=== PATIENT | female | born 1955 | race Caucasian/White ===

== ENCOUNTER 2016-08-26 13:29 | Emergency (ER) | payer BC ==
[~2016-08-26] VITALS: Ht 152.4 cm; Wt 56.1 kg
[~2016-08-26 13:29] MED LIST: ACAR50TA PO; ALBU1AER INH; ALBU6.7H INH; BENI20TA25 PO; FLUT1INH7 INH; SPIRCAP INH
[2016-08-26 13:34] VITALS: BP 145/68; PULSE 70; RESP 18; TEMP 98.3; O2SAT 99
[2016-08-26] MEDS ORDERED: SODIUM CHLOR 0.9% 1000 ML INJ 1,000 ML IV SCH (14:08)
--- NOTE | 2016-08-26 14:12 | PD ---
HPI Chief Complaint: Abdominal Pain Time Seen by Provider: 14:08 Travel History International Travel<30 days: No Contact w/Intl Traveler<30days: No Traveled to known affect area: No History of Present Illness HPI 61-year-old female with history of gastritis, presents to the ER today for nausea, vomiting, and loose stools in the past day after eating ice cream. She states that other people in her household is in the ice cream without significant symptoms. She states that she has had an increased problem with her stomach in the last month. She denies any fevers or any other symptoms. She is having 5 out of 10 epigastric abdominal pains and was sent in by her primary care physician for further evaluation. Modifying Factors: None Associated Signs & Symptoms: Epigastric abdominal pains, nausea and vomiting, loose stools Risk Factors: Gastritis PFSH Past Medical History Hx Anticoagulant Therapy: Yes (BABY ASA) Arthritis: Yes (NECK) Asthma: Yes Blood Disorders: No Anxiety: No Depression: No Cancer: No Cardiovascular Problems: Yes Chemotherapy: No COPD: Yes Diabetes: Yes (TYPE 2) Patient Takes Glucophage: No Diminished Hearing: No Endocrine: No GERD: Yes Genitourinary: No Hypertension: Yes Immune Disorder: No Implanted Vascular Access Dvce: No Musculoskeletal: Yes Neurologic: No Psychiatric: No Reproductive: No Respiratory: Yes (ASTHMA) Radiation Therapy: No ?: Not Past Surgical History Abdominal Surgery: Yes (TUMMY TUCK) Gynecologic Surgery: Yes (HYSTERECTOMY 1996) Hysterectomy: Yes Thoracic Surgery: Yes (BREAST AUGMENTAION) Other Surgery: Yes Social History Alcohol Use: Yes (6 DRINKS PER WEEK) Tobacco Use: No Substance Use: Yes (MARIJUANA ) Allergies-Medications (Allergen,Severity, Reaction): Coded Allergies: Bumble Bee (Verified Allergy, Severe, Hives, 08/26/16) Morphine (Verified Allergy, Severe, Hives, 08/26/16) Penicillin (Verified Allergy, Severe, Shortness of Breath, 08/26/16) Prednisone (Verified Allergy, Severe, EXERBATION OF DIVERTICULIS, 08/26/16) Dilaudid (Verified Allergy, Intermediate, ITCHING, 08/26/16) Protonix (Verified Allergy, Intermediate, Hives, 08/26/16) Codeine (Verified Allergy, Mild, Hallucinations, 08/26/16) Sulfa (Verified Allergy, Mild, Hives, 08/26/16) Reported Meds & Prescriptions Reported Meds & Active Scripts Active Reported Prevacid (Lansoprazole) 30 Mg Capdr 30 Mg PO DAILY Breo Ellipta Inh (Fluticasone/Vilanterol) 100-25 Mcg/Act Inh 1 Puff INH DAILY Use daily at the same time. Voltaren (Diclofenac Sodium) 100 Gm Gel..gram. Ranitidine (Ranitidine HCl) 150 Mg Tab 150 Mg PO DAILY Proair Respiclick Inh (Albuterol Sulfate) 90 Mcg/Act Aerp 1 Puff INH Q4H PRN Multi-Day Vitamins (Multiple Vitamin) 1 Tab Tab Mometasone Topical (Mometasone Furoate) 0.1 % Lotn 1 Applic TOPICAL DAILY Hydrocodone-Acetaminophen 5-325 mg Tab 1 Tab PO Q6H PRN Fiber Choice Chewable Tablet (Inulin/Sorbitol) 1.5 Gm Tab.chew Delestrogen Valerate Inj (Estradiol Valerate) 40 Mg/Ml Inj Benicar (Olmesartan) 20 Mg Tab 20 Mg PO DAILY Aspirin 81 (Aspirin) 81 Mg Tabdr 81 Mg PO DAILY Yamilet-D 12 Hour Allergy (Fexofenadine-Pseudoephedrine ER 12 HR) 60-120 Mg Olivia 1 Tab PO BID Acarbose 25 Mg Tab 25 Mg PO TID Take with first bite of meal. Review of Systems Except as stated in HPI: all other systems reviewed are Neg Physical Exam Narrative GENERAL: Well-developed elderly white female patient currently mild distress but awake and oriented 3. SKIN: Focused skin assessment warm/dry. HEAD: Atraumatic. Normocephalic. EYES: Pupils equal and round. No scleral icterus. No injection or drainage. ENT: No nasal bleeding or discharge. Mucous membranes pink and moist. NECK: Trachea midline. No JVD. CARDIOVASCULAR: Regular rate and rhythm. No murmur appreciated. RESPIRATORY: No accessory muscle use. Clear to auscultation. Breath sounds equal bilaterally. GASTROINTESTINAL: Abdomen soft, epigastric tenderness without guarding or rebound, nondistended. Hepatic and splenic margins not palpable. MUSCULOSKELETAL: No obvious deformities. No clubbing. No cyanosis. No edema. NEUROLOGICAL: Awake and alert. No obvious cranial nerve deficits. Motor grossly within normal limits. Normal speech. PSYCHIATRIC: Appropriate mood and affect; insight and judgment normal. Data Data Last Documented VS Vital Signs Date Time Temp Pulse Resp B/P Pulse Ox O2 Delivery O2 Flow Rate FiO2 08/26/16 14:17 97 Room Air 08/26/16 13:34 98.3 70 18 145/68 Orders Complete Blood Count With Diff (08/26/16 14:08) Comprehensive Metabolic Panel (08/26/16 14:08) Lipase (08/26/16 14:08) Urinalysis - C+S If Indicated (08/26/16 14:08) Ct Abd/Pel W Iv Contrast(Rout) (08/26/16 14:08) Iv Access Insert/Monitor (08/26/16 14:08) Ecg Monitoring (08/26/16 14:08) Oximetry (08/26/16 14:08) Ondansetron Inj (Zofran Inj) (08/26/16 14:15) Sodium Chlor 0.9% 1000 Ml Inj (Ns 1000 M (08/26/16 14:08) Sodium Chloride 0.9% Flush (Ns Flush) (08/26/16 14:15) Electrocardiogram (08/26/16 14:08) Famotidine Inj (Pepcid Inj) (08/26/16 14:15) Al-Mag Hy-Si 40-40-4 Mg/Ml Liq (Mag-Al P (08/26/16 14:15) Lidocaine 2% Viscous (Xylocaine 2% Visco (08/26/16 14:15) Iohexol 350 Inj (Omnipaque 350 Inj) (08/26/16 15:47) Labs Laboratory Tests Test 08/26/16 08/26/16 14:31 16:39 White Blood Count 13.2 TH/MM3 Red Blood Count 4.20 MIL/MM3 Hemoglobin 13.4 GM/DL Hematocrit 39.4 % Mean Corpuscular Volume 93.9 FL Mean Corpuscular Hemoglobin 31.9 PG Mean Corpuscular Hemoglobin 34.0 % Concent Red Cell Distribution Width 12.9 % Platelet Count 391 TH/MM3 Mean Platelet Volume 8.9 FL Neutrophils (%) (Auto) 57.7 % Lymphocytes (%) (Auto) 23.6 % Monocytes (%) (Auto) 5.9 % Eosinophils (%) (Auto) 10.3 % Basophils (%) (Auto) 2.5 % Neutrophils # (Auto) 7.6 TH/MM3 Lymphocytes # (Auto) 3.1 TH/MM3 Monocytes # (Auto) 0.8 TH/MM3 Eosinophils # (Auto) 1.4 TH/MM3 Basophils # (Auto) 0.3 TH/MM3 CBC Comment DIFF FINAL Differential Comment Sodium Level 141 MEQ/L Potassium Level 4.0 MEQ/L Chloride Level 108 MEQ/L Carbon Dioxide Level 26.8 MEQ/L Anion Gap 6 MEQ/L Blood Urea Nitrogen 12 MG/DL Creatinine 0.85 MG/DL Estimat Glomerular Filtration 68 ML/MIN Rate Random Glucose 99 MG/DL Calcium Level 9.2 MG/DL Total Bilirubin 0.3 MG/DL Aspartate Amino Transf 16 U/L (AST/SGOT) Alanine Aminotransferase 26 U/L (ALT/SGPT) Alkaline Phosphatase 69 U/L Total Protein 7.0 GM/DL Albumin 3.9 GM/DL Lipase 96 U/L Urine Color YELLOW Urine Turbidity HAZY Urine pH 6.5 Urine Specific [place] GREATER THAN 1.035 Urine Protein NEG mg/dL Urine Glucose (UA) NEG mg/dL Urine Ketones NEG mg/dL Urine Occult Blood TRACE Urine Nitrite NEG Urine Bilirubin NEG Urine Leukocyte Esterase NEG Urine Squamous Epithelial > 8 /hpf Cells Urine Bacteria FEW /hpf Microscopic Urinalysis Comment CULT NOT INDICATED MDM Medical Decision Making Medical Screen Exam Complete: Yes Emergency Medical Condition: Yes Medical Record Reviewed: Yes Interpretation(s) EKG shows NSR, no ST elevation or depression, and no arrhythmias. No significant T-wave inversions. Laboratory Tests Test 08/26/16 08/26/16 14:31 16:39 White Blood Count 13.2 TH/MM3 (4.0-11.0) Eosinophils (%) (Auto) 10.3 % (0.0-4.0) Basophils (%) (Auto) 2.5 % (0.0-2.0) Eosinophils # (Auto) 1.4 TH/MM3 (0-0.4) Basophils # (Auto) 0.3 TH/MM3 (0-0.2) Chloride Level 108 MEQ/L (98-107) Estimat Glomerular Filtration 68 ML/MIN (>89) Rate Urine Turbidity HAZY (CLEAR) Urine Specific [place] GREATER THAN 1.035 (1.002-1.035) Urine Occult Blood TRACE (NEG) Urine Squamous Epithelial > 8 /hpf (0-5) Cells Urine Bacteria FEW /hpf (NONE) Last 24 hours Impressions Abdomen/Pelvis CT 08/26/16 [id number] Signed Impressions: Service Date/Time: Friday, August 26, 2016 15:31 - CONCLUSION: Chronic diverticulosis coli otherwise negative. Brent Gibbs MD FACR Differential Diagnosis Epigastric abdominal pain with nausea and vomiting, loose stools gastroenteritis versus gastritis versus gastric ulcer versus pancreatitis versus other acute intra-abdominal processes versus dehydration versus metabolic issues Narrative Course Lab work shows leukocytosis which patient states she always has. It did not show significant dehydration or metabolic issues. CAT scan was otherwise unremarkable for any signs of acute processes. She was given IV fluids and nausea medication with no further significant vomiting episodes in the ER. At this point, patient was reevaluated at 5 PM and appears to be doing well with stable vital signs. My plan would be to release her with follow-up to primary care physician and GI doctor. Return for any worsening in symptoms as necessary. The plan has been discussed with her and she states understanding. Diagnosis Primary Impression: Gastritis and duodenitis Additional Impression: Abdominal pain Med/Other Pt SpecificInfo: Prescription(s) given Scripts Ondansetron Odt (Zofran Odt)4 Mg Tab4 Mg SL Q6HR PRN (Nausea/Vomiting) #7 TAB Ref 0 Prov:Juliana Douglas MD 08/26/16 Disposition: 01 DISCHARGE HOME Condition: Stable Juliana Douglas MD Aug 26, 2016 14:12
[2016-08-26] MEDS ORDERED: LIDOCAINE VISCOUS 2% SOLN 15 ML UDC PO ONE (14:15)
[2016-08-26] MEDS ORDERED: ONDANSETRON HCL 4 MG/2 ML VIAL IVP ONE (14:15)
[2016-08-26] MEDS ORDERED: ALUMINUM/MAGNESIUM/SIMETH 30 ML CUP PO ONE (14:15)
[2016-08-26] MEDS ORDERED: SODIUM CHLORIDE 0.9% FLUSH 10 ML FLUSH IV FLUSH PRN (14:15)
[2016-08-26] MEDS ORDERED: FAMOTIDINE 20 MG/2 ML VIAL IV PUSH ONE (14:15)
[2016-08-26] MEDS ORDERED: HYDR-3516 PO (14:16)
[2016-08-26] MEDS ORDERED: BENI20TA5 PO (14:16)
[2016-08-26] MEDS ORDERED: ALBU1AER5 INH (14:16)
[2016-08-26] MEDS ORDERED: FLUT1INH INH (14:16)
[2016-08-26] MEDS ORDERED: MULTTAB27 (14:16)
[2016-08-26] MEDS ORDERED: ASPI-110 PO (14:16)
[2016-08-26] MEDS ORDERED: PREV30CA11 PO (14:16)
[2016-08-26] MEDS ORDERED: VOLT1GEL4 (14:16)
[2016-08-26] MEDS ORDERED: [UNRECOGNIZED DRUG - CODE] (14:16)
[2016-08-26] MEDS ORDERED: ALLE12TA2 PO (14:16)
[2016-08-26] MEDS ORDERED: ACAR25TA PO (14:16)
[2016-08-26] MEDS ORDERED: [UNRECOGNIZED DRUG - CODE] (14:16)
[2016-08-26] MEDS ORDERED: RANI150T PO (14:16)
[2016-08-26] MEDS ORDERED: MOME0.1S17 TOPICAL (14:16)
[2016-08-26 14:17] VITALS: O2SAT 97
[2016-08-26 14:42] LABS: AUTOMATED NEUTROPHIL # 7.6 TH/MM3 (1.8-7.7); BASOPHIL # 0.3 TH/MM3 (0-0.2); BASOPHIL % 2.5 % (0.0-2.0); EOSINOPHIL # 1.4 TH/MM3 (0-0.4); EOSINOPHIL % 10.3 % (0.0-4.0); HEMATOCRIT 39.4 % (35.0-46.0); HEMO FLAGS DIFF FINAL; LYMPH % 23.6 % (9.0-44.0); LYMPHOCYTE # 3.1 TH/MM3 (1.0-4.8); MEAN CELL VOLUME 93.9 FL (80.0-100.0); MEAN CORPUSCULAR HEMOGLOBIN 31.9 PG (27.0-34.0); MONO % 5.9 % (0.0-8.0); NEUT % 57.7 % (16.0-70.0); PLATELET COUNT 391 TH/MM3 (150-450); RED CELL DISTRIBUTION WIDTH 12.9 % (11.6-17.2); WHITE BLOOD COUNT 13.2 TH/MM3 (4.0-11.0)
[2016-08-26 14:51] LABS: CHLORIDE 108 MEQ/L (98-107); SODIUM (NA) 141 MEQ/L (136-145)
[2016-08-26 14:55] LABS: ANION GAP 6 MEQ/L (5-15); BICARBONATE 26.8 MEQ/L (21.0-32.0); BLOOD UREA NITROGEN 12 MG/DL (7-18)
[2016-08-26 14:58] LABS: ALT (GPT) 26 U/L (10-53); AST (GOT) 16 U/L (15-37); GLOMERULAR FILTRATION RATE 68 ML/MIN (>89)
[2016-08-26 14:59] LABS: TOTAL BILIRUBIN ADULT 0.3 MG/DL (0.2-1.0)
[2016-08-26 15:01] LABS: ALKALINE PHOSPHATASE 69 U/L (45-117)
[2016-08-26] MEDS ORDERED: IOHEXOL 350 MG/ML 10 ML VIAL (for RAD DIAG) IV ONE (15:47)
--- NOTE | 2016-08-26 15:53 | RADHPO ---
EXAM DATE/TIME: 08/26/2016 15:31 [facility] COMPARISON: CT ABDOMEN & PELVIS W CONTRAST, July 08, 2013, 12:12. INDICATIONS : Epigastric pain since yesterday. IV CONTRAST: 95 cc Omnipaque 350 (iohexol) IV ORAL CONTRAST: No oral contrast ingested. RADIATION DOSE: 5.89 CTDIvol (mGy) MEDICAL HISTORY : Hypertension. Chronic obstructive pulmonary disease. Diabetes. SURGICAL HISTORY : Hysterectomy. ENCOUNTER: Initial ACUITY: 2 days PAIN SCALE: 8/10 LOCATION: upper quadrant TECHNIQUE: Volumetric scanning of the abdomen and pelvis was performed. Using automated exposure control and ad justment of the mA and/or kV according to patient size, radiation dose was kept as low as reasonably achievable to obtain optimal diagnostic quality images. FINDINGS: Breast implants are evident. Lung base are clear. Gallbladder small and contracted. The liver, spleen, pancreas and adrenal glands are unremarkable. There is symmetrical renal function without mass. There is no ascites or adenopathy. The cecum and terminal ileum unremarkable. Chronic diverticulosis coli is present sigmoid colon CONCLUSION: Chronic diverticulosis coli otherwise negative. Brent Gibbs MD FACR on August 26, 2016 at 15:49 Board Certified Radiologist. This report was verified electronically.
[2016-08-26 16:44] LABS: BLOOD, URINE TRACE (NEG); GLUCOSE,URINE NEG (NEG); KETONE, URINE NEG (NEG); NITRITE,URINE NEG (NEG); PH, URINE 6.5 (5.0-8.5)
[2016-08-26 16:49] LABS: URINE COLOR YELLOW (YELLW/STRAW)
[2016-08-26 16:51] LABS: BACTERIA, URINE FEW /hpf; COMMENT (UR) CULT NOT INDICATED; CULTURE IF INDICATED CULT NOT INDICATED; SQUAMOUS EPITHELIAL CELL URINE > 8 /hpf (0-5)
[2016-08-26] MEDS ORDERED: ZOFR4TAB3 SL (17:03)
[2016-08-26 17:24] VITALS: BP 112/72; PULSE 64; RESP 18; O2SAT 98
--- NOTE | 2016-08-27 22:01 | EKG ---
Date Performed: 08/26/2016 Time Performed: 14:14:54 PTAGE: 61 years EKG: Sinus bradycardia Low QRS voltages in precordial leads Since previous tracing, no significa nt change noted Borderline ECG PREVIOUS TRACING : 03/21/2015 09.32 DOCTOR: Emanuel Fuentes Interpretating Date/Time 08/27/2016 21:57:48
== END 2016-08-26 17:27 | disposition home or self-care (01) ==
LOC: PHED 13:29
DX: K29.80 Duodenitis without bleeding (principal); K29.70 Gastritis, unspecified, without bleeding; R00.1 Bradycardia, unspecified; R10.13 Epigastric pain; J45.909 Unspecified asthma, uncomplicated; J44.9 Chronic obstructive pulmonary disease, unspecified; E11.9 Type 2 diabetes mellitus without complications; I10 Essential (primary) hypertension; K21.9 Gastro-esophageal reflux disease without esophagitis
CPT/HCPCS: 74177; 80053; 81001; 83690; 85025; 93005; 96361; 96374; 96375; 99285; J2405; J7030; Q9967

== ENCOUNTER 2016-09-02 05:53 | Inpatient (IN) | payer BC ==
[2016-09-02] VITALS (8 sets, daily range): BP systolic 115–213; BP diastolic 49–125; PULSE 54–79; RESP 16–24; TEMP 96.7–98.3; O2SAT 97–100
[~2016-09-02] VITALS: Ht 167.6 cm; Wt 57.8 kg
[~2016-09-02 05:53] MED LIST changes: +ACAR25TA PO; -ACAR50TA PO; -ALBU1AER INH; +ALBU1AER5 INH; -ALBU6.7H INH; +ALLE12TA2 PO; +ASPI-110 PO; -BENI20TA25 PO; +BENI20TA5 PO; +FLUT1INH INH; -FLUT1INH7 INH; +HYDR-3516 PO; +MOME0.1S17 TOPICAL; +MULTTAB27; +PREV30CA11 PO; +RANI150T PO; -SPIRCAP INH; +VOLT1GEL4; +ZOFR4TAB3 SL; +[UNRECOGNIZED DRUG - CODE]; +[UNRECOGNIZED DRUG - CODE]
[2016-09-02] MEDS ORDERED: SODIUM CHLOR 0.9% 1000 ML INJ 1,000 ML IV ONE (06:15)
[2016-09-02] MEDS ORDERED: ONDANSETRON HCL 4 MG/2 ML VIAL IV ONE (06:15)
--- NOTE | 2016-09-02 06:29 | RADRPT ---
EXAM DATE/TIME: 09/02/2016 06:28 [facility] COMPARISON: CHEST PA & LAT, March 21, 2015, 9:59. INDICATIONS : Abdominal pain and vomiting x 2 weeks. MEDICAL HISTORY : Hypertension. Chronic obstructive pulmonary disease. Diabetes. SURGICAL HISTORY : Hysterectomy. ENCOUNTER: Initial ACUITY: 2 weeks PAIN SCORE: 9/10 LOCATION: Bilateral chest FINDINGS: The lungs are clear without infiltrate, nodule, or mass. There is no appreciable pleural effusion fo r technique. Heart and mediastinum are unremarkable. Evidence for prior granulomatous exposure. The re are atherosclerotic calcifications of the aorta due to chronic atherosclerotic disease. CONCLUSION: No acute cardiopulmonary disease. Cody Tanner MD on September 02, 2016 at 6:27 Board Certified Radiologist. This report was verified electronically.
--- NOTE | 2016-09-02 06:33 | PD ---
HPI Chief Complaint: Abdominal Pain Time Seen by Provider: 06:05 Travel History International Travel<30 days: No Contact w/Intl Traveler<30days: No Traveled to known affect area: No History of Present Illness HPI The patient is a 61 year old female who presents to the [facility] emergency department with a history of abdominal pain that began a month ago. It is midepigastric. It comes and goes. The character of the pain is a "hurting pain". She has had intermittent nausea and vomiting associated with it over the last 2-3 weeks. She awoke with nausea and vomiting that began at 3:30AM. The pain is worse in the night. She has had soft stools. Her last BM 2 days ago. She has upper back pain associated with that this evening. She has been seen in the emergency department for this and a CT scan of the abdomen and pelvis showed no acute abnormality. The patient reports that she was diagnosed with gastritis and started on Prevacid, she is also taking ranitidine, however it has not been helping. She saw Dr. Bland a local certified marine mechanic this past and additional studies including endoscopy was ordered for this week. She reports that a gastric emptying study and an ultrasound of the gallbladder has been ordered. She has been on Zofran for nausea and it makes her "itch from the inside out". She reports that she took this medicine at 3 AM, however it did not help. The patient denies any recent fevers, cough, congestion, neck pain, chest pain, shortness of breath, urinary symptoms, or neurologic symptoms. PFSH Past Medical History Narrative Medical The patient's past medical history is significant for Diabetes, COPD, arthrits, hypertension, acid reflux, chronic pain related to arthritis in the neck, history of Lyme disease. Hx Anticoagulant Therapy: Yes (BABY ASA) Arthritis: Yes (NECK) Asthma: Yes Blood Disorders: No Anxiety: No Depression: No Cancer: No Cardiovascular Problems: Yes Chemotherapy: No COPD: Yes Diabetes: Yes (TYPE 2) Patient Takes Glucophage: No Diminished Hearing: No Endocrine: No GERD: Yes Genitourinary: No Hypertension: Yes Immune Disorder: No Implanted Vascular Access Dvce: No Medical other: Yes (lyme disease) Musculoskeletal: Yes Neurologic: No Psychiatric: No Reproductive: No Respiratory: Yes (ASTHMA) Radiation Therapy: No Tetanus Vaccination: Unknown Influenza Vaccination: No Past Surgical History Narrative Surgical The patient's past surgical history is significant for an abdominoplasty, hysterectomy, breast augmentation. Abdominal Surgery: Yes (TUMMY TUCK) Gynecologic Surgery: Yes (HYSTERECTOMY 1996) Hysterectomy: Yes Thoracic Surgery: Yes (BREAST AUGMENTAION) Other Surgery: Yes (arthroscopy knee) Social History Alcohol Use: Yes (couple times a week ) Tobacco Use: No Substance Use: Yes (MARIJUANA hx) Allergies-Medications (Allergen,Severity, Reaction): Coded Allergies: Bumble Bee (Verified Allergy, Severe, Hives, 09/02/16) Morphine (Verified Allergy, Severe, Hives, 09/02/16) Penicillin (Verified Allergy, Severe, Shortness of Breath, 09/02/16) Prednisone (Verified Allergy, Severe, EXERBATION OF DIVERTICULIS, 09/02/16) Dilaudid (Verified Allergy, Intermediate, ITCHING, 09/02/16) Protonix (Verified Allergy, Intermediate, Hives, 09/02/16) Codeine (Verified Allergy, Mild, Hallucinations, 09/02/16) Sulfa (Verified Allergy, Mild, Hives, 09/02/16) Reported Meds & Prescriptions Reported Meds & Active Scripts Active Zofran Odt (Ondansetron Odt) 4 Mg Tab 4 Mg SL Q6HR PRN Reported Prevacid (Lansoprazole) 30 Mg Capdr 30 Mg PO DAILY Breo Ellipta Inh (Fluticasone/Vilanterol) 100-25 Mcg/Act Inh 1 Puff INH DAILY Use daily at the same time. Voltaren (Diclofenac Sodium) 100 Gm Gel..gram. Ranitidine (Ranitidine HCl) 150 Mg Tab 150 Mg PO DAILY Proair Respiclick Inh (Albuterol Sulfate) 90 Mcg/Act Aerp 1 Puff INH Q4H PRN Multi-Day Vitamins (Multiple Vitamin) 1 Tab Tab Mometasone Topical (Mometasone Furoate) 0.1 % Lotn 1 Applic TOPICAL DAILY Hydrocodone-Acetaminophen 5-325 mg Tab 1 Tab PO Q6H PRN Fiber Choice Chewable Tablet (Inulin/Sorbitol) 1.5 Gm Tab.chew Delestrogen Valerate Inj (Estradiol Valerate) 40 Mg/Ml Inj Benicar (Olmesartan) 20 Mg Tab 20 Mg PO DAILY Aspirin 81 (Aspirin) 81 Mg Tabdr 81 Mg PO DAILY Yamilet-D 12 Hour Allergy (Fexofenadine-Pseudoephedrine ER 12 HR) 60-120 Mg Olivia 1 Tab PO BID Acarbose 25 Mg Tab 25 Mg PO TID Take with first bite of meal. Review of Systems Except as stated in HPI: all other systems reviewed are Neg General / Constitutional: No: Fever Eyes: No: Visual changes HENT: No: Headaches Cardiovascular: No: Chest Pain or Discomfort Respiratory: No: Shortness of Breath Gastrointestinal: Positive: Nausea, Vomiting, Abdominal Pain, Changes in Bowel Habits, Indigestion, No: Diarrhea, Hematemesis, Hematochezia, Loss of Appetite Genitourinary: No: Dysuria Musculoskeletal: No: Pain Skin: No Rash Neurologic: No: Weakness Psychiatric: No: Depression Endocrine: No: Polydipsia Hematologic/Lymphatic: No: Easy Bruising Physical Exam Narrative General: The patient is a well-developed well-nourished female who is uncomfortable appearing on my arrival to the room with dry heaving. Head and Neck exam: Head is normocephalic atraumatic. Eyes: EOMI, pupils are equal round and reactive to light. Nose: Midline septum with pink mucous membranes Mouth: Dentition unremarkable. Moist mucus membranes. Posterior oropharynx is not erythematous. No tonsillar hypertrophy. Uvula midline. Airway patent. Neck: No palpable lymphadenopathy. No nuchal rigidity. No thyromegaly. Cardiovascular: Regular rate and rhythm without murmurs, gallops, or rubs. Lungs: Clear to auscultation bilaterally. No wheezes, rhonchi, or rales. Abdomen: Soft, with tenderness on palpation of the midepigastric area. No tenderness on palpation of McBurney's point. Normal bowel sounds are audible No guarding, rebound, or rigidity. Negative [place] sign. Extremities: No clubbing, cyanosis, or edema. 2+ pulses in all 4 extremities. Back: No spinous process tenderness to palpation. No CVA tenderness on palpation. Neurologic Exam: Grossly nonfocal. Skin Exam: No rash noted. Intact skin that is warm and dry. Data Data Last Documented VS Vital Signs Date Time Temp Pulse Resp B/P Pulse Ox O2 Delivery O2 Flow Rate FiO2 09/02/16 06:18 68 24 187/85 100 09/02/16 05:57 98.3 Room Air Orders Electrocardiogram (09/02/16 06:14) Complete Blood Count With Diff (09/02/16 06:14) Comprehensive Metabolic Panel (09/02/16 06:14) Creatine Kinase (Cpk) (09/02/16 06:14) Ckmb (Isoenzyme) Profile (09/02/16 06:14) Troponin I (09/02/16 06:14) Prothrombin Time / Inr (Pt) (09/02/16 06:14) Act Partial Throm Time (Ptt) (09/02/16 06:14) Lipase (09/02/16 06:14) Urinalysis - C+S If Indicated (09/02/16 06:14) Chest, Single Ap (09/02/16 06:14) Us Abdomen Gallbladder (09/02/16 06:14) Iv Access Insert/Monitor (09/02/16 06:14) Ecg Monitoring (09/02/16 06:14) Oximetry (09/02/16 06:14) Sodium Chlor 0.9% 1000 Ml Inj (Ns 1000 M (09/02/16 06:15) Ondansetron Inj (Zofran Inj) (09/02/16 06:15) Metoclopramide Inj (Reglan Inj) (09/02/16 06:45) Meperidine Inj (Demerol Inj) (09/02/16 06:45) Pantoprazole Inj (Protonix Inj) (09/02/16 06:45) MDM Medical Decision Making Medical Screen Exam Complete: Yes Emergency Medical Condition: Yes Medical Record Reviewed: Yes Differential Diagnosis Pancreatitis, versus peptic ulcer disease, versus gastritis, versus esophagitis , versus gastroparesis, versus cyclic vomiting syndrome Narrative Course During the course of the patients emergency department visit, the patients history, examination, and differential diagnosis were reviewed with the patient. The patient had IV access obtained and blood work sent for analysis. The patient was placed on a cottonseed meat presser with oximetry and blood pressure monitoring. The patient's electronic medical record was reviewed. The patient had an ultrasound of the right upper quadrant ordered. The patient was initially provided normal saline 1 L IV fluid bolus. The patient has Zofran written to be administered, however she refuses this that she reports that she's been having a reaction to it. The patient was given Reglan 5 mg IV. The patient has an allergy reported to Dilaudid and morphine. The patient reports that she has taken Demerol in the past without difficulty. Demerol 25 mg IV was written to be administered. The patients laboratory studies were reviewed and remarkable for a white count of 21.7, hemoglobin 14, platelets 411 with 14.9 eosinophils. The patient's other laboratory studies are pending at the conclusion of my shift. The patient's case was checked out to Dr. Paz to review the laboratory studies and ultrasound studies. Given the patient's intractable pain and vomiting, the patient may require admission for further evaluation as an inpatient. Diagnosis Primary Impression: Abdominal pain Qualified Code: R10.13 - Epigastric pain Additional Impression: Vomiting Qualified Code: R11.2 - Nausea and vomiting, intractability of vomiting not specified, unspecified vomiting type Saida Hunter MD Sep 02, 2016 06:33
[2016-09-02] MEDS ORDERED: MEPERIDINE HCL 25 MG/ML VIAL IV PUSH ONE (06:45)
[2016-09-02] MEDS ORDERED: METOCLOPRAMIDE HCL 10 MG/2 ML VIAL IV PUSH ONE (06:45)
[2016-09-02] MEDS ORDERED: PANTOPRAZOLE SODIUM 40 MG VIAL IV PUSH ONE (06:45)
[2016-09-02 06:50] LABS: AUTOMATED NEUTROPHIL # 13.1 TH/MM3 (1.8-7.7); BASOPHIL # 0.2 TH/MM3 (0-0.2); BASOPHIL % 0.8 % (0.0-2.0); EOSINOPHIL # 3.2 TH/MM3 (0-0.4); EOSINOPHIL % 14.9 % (0.0-4.0); HEMATOCRIT 42.4 % (35.0-46.0); HEMO FLAGS DIFF FINAL; LYMPH % 18.3 % (9.0-44.0); MEAN CELL VOLUME 93.6 FL (80.0-100.0); MEAN CORPUSCULAR HGB CONC 33.1 % (32.0-36.0); MONO % 5.6 % (0.0-8.0); NEUT % 60.4 % (16.0-70.0); PLATELET COUNT 411 TH/MM3 (150-450); RED BLOOD COUNT 4.53 MIL/MM3 (4.00-5.30); RED CELL DISTRIBUTION WIDTH 13.6 % (11.6-17.2); WHITE BLOOD COUNT 21.7 TH/MM3 (4.0-11.0)
[2016-09-02 06:58] LABS: APTT (PATIENT) 28.9 SEC (24.3-30.1); PROTHROMBIN TIME - PATIENT 11.2 SEC (9.8-11.6)
[2016-09-02 07:02] LABS: ANION GAP 12 MEQ/L (5-15); BICARBONATE 21.9 MEQ/L (21.0-32.0); BLOOD UREA NITROGEN 11 MG/DL (7-18); CHLORIDE 105 MEQ/L (98-107); POTASSIUM 3.8 MEQ/L (3.5-5.1); SODIUM (NA) 139 MEQ/L (136-145)
[2016-09-02 07:07] LABS: ALKALINE PHOSPHATASE 92 U/L (45-117); ALT (GPT) 21 U/L (10-53); AST (GOT) 15 U/L (15-37); GLOMERULAR FILTRATION RATE 66 ML/MIN (>89); TOTAL BILIRUBIN ADULT 0.3 MG/DL (0.2-1.0)
[2016-09-02 07:09] LABS: CREATINE KINASE 47 U/L (26-192)
--- NOTE | 2016-09-02 07:12 | PD ---
Physical Exam Date Seen by Provider: Sep 02, 2016 Time Seen by Provider: 07:00 Narrative Signed out to me by Dr. Hunter. We're awaiting laboratory tests. Patient presents with intractable nausea vomiting abdominal pain. Patient has recently seen GI for her scheduled an upper endoscopy and ultrasound of the gallbladder. Patient does have a history of diabetes. She is allergic to multiple medications including morphine, Dilaudid, codeine. She also states that Zofran is not agreeable to her. She's been given Reglan and Demerol. Data Data Last Documented VS Vital Signs Date Time Temp Pulse Resp B/P Pulse Ox O2 Delivery O2 Flow Rate FiO2 09/02/16 08:47 66 24 189/86 100 Room Air 09/02/16 05:57 98.3 Orders Electrocardiogram (09/02/16 06:14) Complete Blood Count With Diff (09/02/16 06:14) Comprehensive Metabolic Panel (09/02/16 06:14) Creatine Kinase (Cpk) (09/02/16 06:14) Ckmb (Isoenzyme) Profile (09/02/16 06:14) Troponin I (09/02/16 06:14) Prothrombin Time / Inr (Pt) (09/02/16 06:14) Act Partial Throm Time (Ptt) (09/02/16 06:14) Lipase (09/02/16 06:14) Urinalysis - C+S If Indicated (09/02/16 06:14) Chest, Single Ap (09/02/16 06:14) Us Abdomen Gallbladder (09/02/16 06:14) Iv Access Insert/Monitor (09/02/16 06:14) Ecg Monitoring (09/02/16 06:14) Oximetry (09/02/16 06:14) Sodium Chlor 0.9% 1000 Ml Inj (Ns 1000 M (09/02/16 06:15) Ondansetron Inj (Zofran Inj) (09/02/16 06:15) Metoclopramide Inj (Reglan Inj) (09/02/16 06:45) Meperidine Inj (Demerol Inj) (09/02/16 06:45) Pantoprazole Inj (Protonix Inj) (09/02/16 06:45) Prochlorperazine Inj (Compazine Inj) (09/02/16 08:15) Meperidine Inj (Demerol Inj) (09/02/16 08:15) Admit Order (Ed Use Only) (09/02/16 10:06) Labs Laboratory Tests Test 09/02/16 06:20 White Blood Count 21.7 TH/MM3 Red Blood Count 4.53 MIL/MM3 Hemoglobin 14.0 GM/DL Hematocrit 42.4 % Mean Corpuscular Volume 93.6 FL Mean Corpuscular Hemoglobin 31.0 PG Mean Corpuscular Hemoglobin 33.1 % Concent Red Cell Distribution Width 13.6 % Platelet Count 411 TH/MM3 Mean Platelet Volume 9.6 FL Neutrophils (%) (Auto) 60.4 % Lymphocytes (%) (Auto) 18.3 % Monocytes (%) (Auto) 5.6 % Eosinophils (%) (Auto) 14.9 % Basophils (%) (Auto) 0.8 % Neutrophils # (Auto) 13.1 TH/MM3 Lymphocytes # (Auto) 4.0 TH/MM3 Monocytes # (Auto) 1.2 TH/MM3 Eosinophils # (Auto) 3.2 TH/MM3 Basophils # (Auto) 0.2 TH/MM3 CBC Comment DIFF FINAL Differential Comment Prothrombin Time 11.2 SEC Prothromb Time International 1.0 RATIO Ratio Activated Partial 28.9 SEC Thromboplast Time Sodium Level 139 MEQ/L Potassium Level 3.8 MEQ/L Chloride Level 105 MEQ/L Carbon Dioxide Level 21.9 MEQ/L Anion Gap 12 MEQ/L Blood Urea Nitrogen 11 MG/DL Creatinine 0.87 MG/DL Estimat Glomerular Filtration 66 ML/MIN Rate Random Glucose 107 MG/DL Calcium Level 9.4 MG/DL Total Bilirubin 0.3 MG/DL Aspartate Amino Transf 15 U/L (AST/SGOT) Alanine Aminotransferase 21 U/L (ALT/SGPT) Alkaline Phosphatase 92 U/L Total Creatine Kinase 47 U/L Troponin I LESS THAN 0.02 NG/ML Total Protein 7.3 GM/DL Albumin 4.0 GM/DL Lipase 81 U/L [facility] Medical Record Reviewed: Yes Supervised Visit with MER: No Differential Diagnosis Peptic ulcer disease versus gastroparesis versus cholecystitis Narrative Course 61 year-old female presents with severe retching and vomiting. The patient has been seen previously by Dr. Gasca would scheduled an upper endoscopy and ultrasound of the gallbladder. The patient has had severe retching and vomiting and abdominal pain. She's been given 2 doses of IV antibiotics and IVP pain medicine and is having severe discomfort. She'll be admitted to the hospital. There is a call out to the [facility] hospitalist as she has Dr. Thayer for primary care. Diagnosis Primary Impression: Abdominal pain Qualified Code: R10.13 - Epigastric pain Additional Impressions: Intractable nausea and vomiting Leukocytosis Clarence Paz MD Sep 02, 2016 07:12
[2016-09-02] MEDS ORDERED: MEPERIDINE HCL 50 MG/ML VIAL IV PUSH ONE (08:15)
[2016-09-02] MEDS ORDERED: PROCHLORPERAZINE INJ 10 MG/2 ML VIAL IM ONE (08:15)
--- NOTE | 2016-09-02 09:53 | RADRPT ---
EXAM DATE/TIME: 09/02/2016 09:12 [place] COMPARISON: US CAROTID ARTERIES, March 21, 2015, 15:18. INDICATIONS : Right upper qaudrant pain. MEDICAL HISTORY : Chronic obstructive pulmonary disease. Gastroesophageal reflux disease. Nausea. Vomiting. Neck pain . Hypertension. Anticoagulant therapy. Arthritis. Diabetes. SURGICAL HISTORY : Hysterectomy. Breast augmentation. Tummy tuck. Knee arthroscopy. ENCOUNTER: Initial ACUITY: 1 month PAIN SCORE: 1/10 LOCATION: Right upper quadrant MEASUREMENTS: LIVER: 15.0 cm length COMMON DUCT: 5 mm RIGHT KIDNEY: 9.7 x 4.9 x 5.1 cm FINDINGS: LIVER: Normal echotexture without focal lesion or ductal dilatation. COMMON DUCT: No intraluminal mass or stone visualized. GALLBLADDER: Contains no stones, demonstrates no wall thickening or pericholecystic fluid.Incidental note is made of a 1 mm cholesterol polyp adherent to the gallbladder wall. PANCREAS: The visualized portions are within normal limits. RIGHT KIDNEY: No evidence of hydronephrosis, stone, or mass. CONCLUSION: 1. Punctate cholesterol polyp adherent to the gallbladder wall. Examination is otherwise within yamileth l limits. Brock Gibbs MD on September 02, 2016 at 9:50 Board Certified Radiologist. This report was verified electronically.
[2016-09-02] MEDS ORDERED: DEXTROSE 50% IN WATER 50 ML VIAL(D50) IV PRN (11:15)
[2016-09-02] MEDS ORDERED: GLUCAGON 1 MG/ML VIAL OTHER PRN (11:15)
[2016-09-02] MEDS ORDERED: MEPERIDINE HCL 50 MG/ML VIAL IM PRN (12:00)
[2016-09-02] MEDS ORDERED: PROCHLORPERAZINE INJ 10 MG/2 ML VIAL IV PUSH PRN (12:00)
[2016-09-02] MEDS ORDERED: ACETAMINOPHEN/HYDROcodone 325 MG/5 MG TAB PO PRN (12:00)
[2016-09-02] MEDS: metroNIDAZOLE 500 MG INJ 100 ML IV SCH ×2 (12:15→21:56)
[2016-09-02] MEDS: FAMOTIDINE 20 MG/2 ML VIAL IV PUSH SCH (12:15)
[2016-09-02] MEDS: LEVOFLOXACIN 500 MG PREMIX INJ 100 ML IV SCH (13:24)
--- NOTE | 2016-09-02 14:46 | HHI.HP ---
HPI Service [facility] Primary Care Physician Anuj Bland MD Admission Diagnosis Intractable nause/vomiting, abdominal pain, diabetes, leukocytosis Diagnoses: Chief Complaint: N/V, abd. pain Travel History International Travel<30 Days: No Contact w/Intl Traveler <30 Da: No Traveled to Known Affected Are: No History of Present Illness This a 61-year-old white female with significant past medical history diabetes, arthritis, hypertension, acid reflux, diverticulitis, Lyme disease. Patient presents to the emergency room with complaint of abdominal pain with nausea and vomiting that started a month ago. Patient indicates that the pain is midepigastric, it is severe it is intermittent. At times pain is exacerbated after eating and sometimes it comes on its own. She's had episodes of nausea vomiting that are sometimes severe the last one was 2 days ago. She believes she has lost approximately 14 pounds. Indicates the vomitus thick, white, no blood. Bowel movements have been regular, they are brown, mushy consistency. She went to see her primary care physician about 3 weeks ago and was prescribed Prevacid for possible gastric ulcers. On Friday she went to see Dr. Deal whom she had seen in the past for a colonoscopy and prior history of diverticulosis. Dr. Deal referred her to see steel detailer Dr. Bland. She went to see Dr. Bland on and he recommended upper endoscopy and ordered a small bowel follow-through and ultrasound of the gallbladder. Patient did not get a chance to get the diagnostic studies done. Patient states that today around 3:30 in the morning the pain restarted along with intractable nausea and vomiting. She's had chills, no fever. Denies any chest pain, no shortness of breath. She was seen in the emergency room approximately a week ago and had a CT of the abdomen that was unremarkable. Patient was evaluated in the emergency room, laboratory workup was completed. BMP remarkable for GFR of 66, glucose of 107. Troponin negative. CBC remarkable for leukocytosis, WBC 21.7. Chest x-ray did not reveal any significant findings. Ultrasound of the gallbladder show punctate cholesterol polyp adherent to the gallbladder wall. Otherwise examination is normal. Patient has allergies to Dilaudid morphine and Zofran. Indicates she has itching and hives. She was medicated with a total of 75 mg of Demerol IV as well as Reglan. At this time she continues to complain of severe pain. Her is at the bedside providing a lot of details of the last month. Patient is hard of hearing due to prior history of Lyme disease. She appears very anxious and is complaining of recurring pain. She is having dry heaves. Patient states she 's not had any pain like this, at times she does have reflux associated with pain. She takes baby aspirin. Has been taking hydrocodone at least twice a day to control the pain. Patient is admitted for further evaluation and treatment. Review of Systems ROS Limitations: Clinical Condition Constitutional: COMPLAINS OF: Weight loss Gastrointestinal: COMPLAINS OF: Abdominal pain, Nausea, Vomiting Psychiatric: COMPLAINS OF: Anxiety Other HARD OF HEARING AFTER LYME DISEASE Past Family Social History Past Medical History DM 2 Asthma Diverticulitis HTN COPD Arthritis TIA hx of Lyme disease, affected hearing Past Surgical History Abundiomy alicjack Arthroscopic knee surgery Breast augmentation C section BILL and BSO Reported Medications Reported Meds & Active Scripts Active Reported Prevacid (Lansoprazole) 30 Mg Capdr 30 Mg PO DAILY Breo Ellipta Inh (Fluticasone/Vilanterol) 100-25 Mcg/Act Inh 1 Puff INH DAILY Use daily at the same time. Voltaren (Diclofenac Sodium) 100 Gm Gel..gram. Ranitidine (Ranitidine HCl) 150 Mg Tab 150 Mg PO DAILY Proair Respiclick Inh (Albuterol Sulfate) 90 Mcg/Act Aerp 1 Puff INH Q4H PRN Multi-Day Vitamins (Multiple Vitamin) 1 Tab Tab Mometasone Topical (Mometasone Furoate) 0.1 % Lotn 1 Applic TOPICAL DAILY Hydrocodone-Acetaminophen 5-325 mg Tab 1 Tab PO Q6H PRN Fiber Choice Chewable Tablet (Inulin/Sorbitol) 1.5 Gm Tab.chew Delestrogen Valerate Inj (Estradiol Valerate) 40 Mg/Ml Inj Benicar (Olmesartan) 20 Mg Tab 20 Mg PO DAILY Aspirin 81 (Aspirin) 81 Mg Tabdr 81 Mg PO DAILY Yamilet-D 12 Hour Allergy (Fexofenadine-Pseudoephedrine ER 12 HR) 60-120 Mg Olivia 1 Tab PO BID Acarbose 25 Mg Tab 25 Mg PO TID Take with first bite of meal. Allergies: Coded Allergies: Bumble Bee (Verified Allergy, Severe, Hives, 09/02/16) Morphine (Verified Allergy, Severe, Hives, 09/02/16) Penicillin (Verified Allergy, Severe, Shortness of Breath, 09/02/16) Prednisone (Verified Allergy, Severe, EXERBATION OF DIVERTICULIS, 09/02/16) Dilaudid (Verified Allergy, Intermediate, ITCHING, 09/02/16) Protonix (Verified Allergy, Intermediate, Hives, 09/02/16) Codeine (Verified Allergy, Mild, Hallucinations, 09/02/16) Sulfa (Verified Allergy, Mild, Hives, 09/02/16) Active Ordered Medications Inpatient Medications Acetaminophen/ Hydrocodone Bitart ([place] 5-325 Mg) 1 tab Q6H PRN PO PAIN Last administered on 09/02/16 14:20; Start 09/02/16 at 12:00 Aspirin (Ecotrin Ec) 81 mg DAILY PO ; Start 09/03/16 at 09:00 Dextrose (D50w (Vial) Inj) 50 ml UNSCH PRN IV HYPOGLYCEMIA-SEE COMMENTS; Start 09/02/16 at 11:15 Famotidine (Pepcid Inj) 20 mg Q12H IV PUSH Last administered on 09/02/16 12:15 ; Start 09/02/16 at 12:00 Fluticasone/ Vilanterol (Breo Ellipta 100-25 Inh) 1 puff DAILY INH ; Start 09/03 at 09:00 Glucagon (Glucagon Inj) 1 mg UNSCH PRN OTHER HYPOGLYCEMIA-SEE COMMENTS; Start 09/02/16 at 11:15 Insulin Aspart (NovoLOG SUPPLEMENTAL SCALE) 1 ACHS SLIDING SCALE SQ ; Start 03/09 at 16:00 Levofloxacin/ Dextrose 100 ml @ 100 mls/hr Q24H IV Last administered on 13:24; Start 09/02/16 at 12:00 Losartan Potassium (Cozaar) 50 mg DAILY PO ; Start 09/03/16 at 09:00 Meperidine HCl (Demerol Inj) 50 mg Q4H PRN IM PAIN 5 TO 10; Start 09/02/16 at 12:00 Metoclopramide HCl (Reglan Inj) 5 mg ONCE ONCE IV PUSH Last administered on 06:44; Start 09/02/16 at 06:45; Stop 09/02/16 at 06:46; Status DC Metronidazole (Flagyl 500 Mg Inj) 100 ml @ 100 mls/hr Q8H IV Last administered on 09/02/16 12:15; Start 09/02/16 at 12:00 Ondansetron HCl (Zofran Inj) 4 mg ONCE ONCE IV ; Start 09/02/16 at 06:15; Stop 09/02/16 at 06:36; Status DC Pantoprazole Sodium (Protonix Inj) 40 mg ONCE ONCE IV PUSH Last administered on 09/02/16 06:50; Start 09/02/16 at 06:45; Stop 09/02/16 at 06:46; Status DC Prochlorperazine Edisylate (Compazine Inj) 10 mg ONCE ONCE IM Last administered on 09/02/16 08:41; Start 09/02/16 at 08:15; Stop 09/02/16 at 08:16 ; Status DC Prochlorperazine Edisylate 10 mg 10 mg Q8H PRN IV PUSH N/V Last administered on 09/02/16 14:21; Start 09/02/16 at 12:00 Sodium Chloride (NS 1000 ml Inj) 1,000 ml @ 1,000 mls/hr Q1H ONCE IV Last administered on 09/02/16 06:24; Start 09/02/16 at 06:15; Stop 09/02/16 at 07:14 ; Status DC Family History Father at 75 secondary to heart attack Mother at 86 atrial fibrillation chronic kidney disease hypertension and hyperlipidemia Social History Patient lives at home with Indicates that she does drink approximately 2 cocktails 2-3 times a week when she goes out with her . Denies tobacco use quit smoking in 2003 prior to that smoked from age 12 Smokes marijuana occasionally. Physical Exam Vital Signs Vital Signs Date Time Temp Pulse Resp B/P Pulse Ox O2 Delivery O2 Flow Rate FiO2 09/02/16 12:09 54 16 123/59 99 Room Air 09/02/16 08:47 66 24 189/86 100 Room Air 09/02/16 07:27 54 16 184/76 98 Room Air 09/02/16 06:18 68 24 187/85 100 09/02/16 05:57 98.3 79 16 213/125 99 Room Air Physical Exam GENERAL: This is a well-nourished, well-developed patient, in no apparent distress. SKIN: No rashes, ecchymoses or lesions. Cool and dry. HEAD: Atraumatic. Normocephalic. No temporal or scalp tenderness. EYES: Pupils equal round and reactive. Extraocular motions intact. No scleral icterus. No injection or drainage. ENT: Nose without bleeding, purulent drainage or septal hematoma. Throat without erythema, tonsillar hypertrophy or exudate. Uvula midline. Airway patent. NECK: Trachea midline. No JVD or lymphadenopathy. Supple, nontender, no meningeal signs. CARDIOVASCULAR: Regular rate and rhythm without murmurs, gallops, or rubs. RESPIRATORY: Clear to auscultation. Breath sounds equal bilaterally. No wheezes , rales, or rhonchi. GASTROINTESTINAL: Abdomen soft, epigastric tenderness, nondistended. Bowel sounds normoactive 4 .No hepato-splenomegaly, or palpable masses. No guarding. MUSCULOSKELETAL: Extremities without clubbing, cyanosis, or edema. No joint tenderness, effusion, or edema noted. No calf tenderness. Negative Homans sign bilaterally. NEUROLOGICAL: Awake, alert oriented 3. Very anxious. No focal deficits. Hard of hearing Laboratory Laboratory Tests Test 09/02/16 06:20 White Blood Count 21.7 Red Blood Count 4.53 Hemoglobin 14.0 Hematocrit 42.4 Mean Corpuscular Volume 93.6 Mean Corpuscular Hemoglobin 31.0 Mean Corpuscular Hemoglobin 33.1 Concent Red Cell Distribution Width 13.6 Platelet Count 411 Mean Platelet Volume 9.6 Neutrophils (%) (Auto) 60.4 Lymphocytes (%) (Auto) 18.3 Monocytes (%) (Auto) 5.6 Eosinophils (%) (Auto) 14.9 Basophils (%) (Auto) 0.8 Neutrophils # (Auto) 13.1 Lymphocytes # (Auto) 4.0 Monocytes # (Auto) 1.2 Eosinophils # (Auto) 3.2 Basophils # (Auto) 0.2 CBC Comment DIFF FINAL Differential Comment Prothrombin Time 11.2 Prothromb Time International 1.0 Ratio Activated Partial 28.9 Thromboplast Time Sodium Level 139 Potassium Level 3.8 Chloride Level 105 Carbon Dioxide Level 21.9 Anion Gap 12 Blood Urea Nitrogen 11 Creatinine 0.87 Estimat Glomerular Filtration 66 Rate Random Glucose 107 Calcium Level 9.4 Total Bilirubin 0.3 Aspartate Amino Transf 15 (AST/SGOT) Alanine Aminotransferase 21 (ALT/SGPT) Alkaline Phosphatase 92 Total Creatine Kinase 47 Troponin I LESS THAN 0.02 Total Protein 7.3 Albumin 4.0 Lipase 81 Result Diagram: 09/02/1661909/02/16619 Imaging Last Impressions Gall Bladder Ultrasound 09/02/16613 Signed Impressions: Service Date/Time: Friday, September 02, 2016 09:12 - CONCLUSION: 1. Punctate cholesterol polyp adherent to the gallbladder wall. Examination is otherwise within normal limits. Brock Gibbs MD Chest X-Ray 09/02/16613 Signed Impressions: Service Date/Time: Friday, September 02, 2016 06:28 - CONCLUSION: No acute cardiopulmonary disease. Cody Tanner MD Assessment and Plan Problem List: (1) Intractable nausea and vomiting (2) Abdominal pain (3) Leukocytosis (4) HTN (hypertension) (5) DM (diabetes mellitus) (6) GERD (gastroesophageal reflux disease) (7) COPD (chronic obstructive pulmonary disease) Assessment and Plan Admit to Dr. Chavira 61-year-old white female presented to the emergency room with complaint of abdominal pain with intermittent nausea vomiting for the last month. Indicates pain is epigastric, sometimes associated with heartburn. Has had a 14 pound weight loss. Epigastric pain, with intermittent nausea vomiting, rule out PUD. Leukocytosis, etiology unclear. GERD -Clear liquid diet -IV fluids -Patient is allergic to morphine and Dilaudid, we will try Toradol as needed for pain. -Continue antiemetics when necessary, Compazine Consult gastroenterology for evaluation Pepcid 20 mg IV twice a day -Continue with Levaquin and Cipro for now, follow CBC Hypertension, uncontrolled, likely secondary to anxiety and pain Vasotec when necessary has been added Resume home medications Type 2 diabetes Accu-Cheks before meals and at bedtime with insulin therapy COPD stable, Monitor sats DuoNeb's when necessary for wheezing Home medications reviewed, initiated as indicated SCDs for DVT prophylaxis Pepcid for GI prophylaxis Plan of care has been discussed with the patient, attending and registered nurse. Further management of the patient will be dependent on the hospital course This patient was seen by myself and Dr. Chavira, this H&P is written on his behalf Physician Certification 2 Midnight Certification Type: Admission for Inpatient Services Order for Inpatient Services The services are ordered in accordance with Medicare regulations or non- Medicare payer requirements, as applicable. In the case of services not specified as inpatient-only, they are appropriately provided as inpatient services in accordance with the 2-midnight benchmark. Estimated LOS (days): 2 2 days is the estimated time the patient will need to remain in the hospital, assuming treatment plan goals are met and no additional complications. Post-Hospital Plan: Home Problem Qualifiers (1) Intractable nausea and vomiting: Qualified Code: G43.A1 - Intractable cyclical vomiting with nausea (2) Abdominal pain: Qualified Code: R10.13 - Epigastric pain (3) Leukocytosis: Qualified Code: D72.829 - Leukocytosis, unspecified type (4) HTN (hypertension): Qualified Code: I10 - Essential hypertension (5) DM (diabetes mellitus): Qualified Code: E11.8 - Type 2 diabetes mellitus with complication, without long-term current use of insulin (6) GERD (gastroesophageal reflux disease): Qualified Code: K21.9 - Gastroesophageal reflux disease, esophagitis presence not specified (7) COPD (chronic obstructive pulmonary disease): Qualified Code: J44.9 - Chronic obstructive pulmonary disease, unspecified COPD type Annabella Henderson Sep 02, 2016 14:46
[2016-09-02] MEDS: INSULIN ASPART SUPPLEMENTAL SCALE SQ SCH ×2 (15:07→21:00)
[2016-09-02] MEDS ORDERED: ENALAPRILAT 1.25 MG/ML VIAL IV PUSH PRN (15:30)
[2016-09-02] MEDS: SODIUM CHLOR 0.9% 1000 ML INJ 1,000 ML IV SCH (15:30)
[2016-09-02] MEDS: KETOROLAC TROMETHAMINE 30 MG/ML (IVP) VIAL IV PUSH PRN (16:05)
[2016-09-02] MEDS ORDERED: RESP: ALBUTEROL 2.5 MG/IPRATROPIUM 0.5 MG NEB (PRN) NEB (16:30)
[2016-09-02] MEDS ORDERED: LORazepam 2 MG/ML VIAL IV PUSH PRN (17:15)
[2016-09-02] MEDS ORDERED: ACETAMINOPHEN 325 MG TAB PO PRN (17:30)
[2016-09-02] MEDS ORDERED: fentaNYL 25 MCG/HR PATCH T-DERMAL SCH (18:00)
--- NOTE | 2016-09-02 21:14 | MB ---
cc: VANNESSA ESTEVEZ M.D., RIZALINA M.D. TOLLAND, TIMOTHY GOLDSMITH, ALAN S. M.D. RICCI, DONATO R. M.D. DATE OF CONSULTATION 09/02/2016 DATE OF 1955 HISTORY OF THE PRESENT ILLNESS The patient is a 61-year-old old female I was asked to see for further evaluation and management of abdominal pain. Over the past 2 months, and worsened over the past 1 month she has been experiencing episodes of epigastric pain though she cannot describe her particular type of sensation. There is no particular triggering factor. Episodes may occur after meals or overnight. She has noticed early satiety. She has vomited food, in fact most recently watermelon up to 6-7 hours after eating it. She has lost some weight. There is no change in pain intensity with change in position or movement or activity. A trial of Nexium and more recently a trial of Prevacid have not helped. She has a history of reflux disease. A panendoscopy in 2008 had revealed some antral ulcerations though the pathology report is not available to us at this time. She has a chronic leukocytosis for which she has been evaluated by hematology (Dr. Derik Bailon) and no worrisome process was discovered. The recent cardiac evaluation she tells me was unremarkable. MEDICAL HISTORY 1. Type 2 diabetes. 2. Asthma. 3. Diverticular disease. 4. Hypertension. 5. COPD. 6. Arthritis. 7. Questionable history of a TIA. 8. And a history of Lyme disease. PAST SURGICAL HISTORY 1. Tummy tuck. 2. Breast augmentation. 3. Arthroscopic knee surgery. 4. section with a total abdominal hysterectomy and a bilateral salpingo-oophorectomy. MEDICATIONS On admission: 1. Prevacid 30 mg daily. 2. Breo Elipta. 3. Voltaren gel. 4. Ranitidine 150 mg daily. 5. ProAir. 6. Multivitamin. 7. Mometasone topically. 8. Hydrocodone 5/325 mg q.6 h p.r.n. 9. Fiber choice chewable tablet. 10. Delestrogen. 11. Benicar 20 mg daily. 12. Aspirin 81 mg daily. 13. Yamilet-D. 14. Acarbose 25 mg t.i.d. 15. Aveed injections every 10 weeks. This is a testosterone product. ALLERGIES CODEINE, MORPHINE PENICILLIN, HYDROMORPHONE, PREDNISONE, SULFA PRODUCTS INCLUDING SULFONAMIDE ANTIBIOTICS, PANTOPRAZOLE. FAMILY HISTORY Heart attack. Atrial fibrillation, chronic kidney disease, hypertension, hyperlipidemia. REVIEW OF SYSTEMS Alcohol use one to two drinks two or three times per week. Alcohol does not bother her sensation. Tobacco use none since 2003. REVIEW OF SYSTEMS No headaches. No history of seizures. No vision difficulties. She has some auditory problems related to her previous Lyme disease. She has had no dysphagia or odynophagia. She has early satiety. No respiratory difficulties. No chest pains or palpitations. No urinary symptoms. No change in chronic joint pains. No new rashes of any sort. No history of pancreatic or liver disease. PHYSICAL EXAMINATION VITAL SIGNS: On physical examination her weight is 59 kg, temperature 98.3, pulse 79, respiratory rate 16, blood pressure 213/125. Saturation 99% on room air. GENERAL: She is alert. She is oriented x3. She is in minor discomfort. HEENT: She is anicteric. Extraocular motions are intact. LYMPHATICS: I appreciate no submandibular, cervical, supraclavicular, axillary or epitrochlear adenopathy. LUNGS: Clear to auscultation. CARDIOVASCULAR: Heart exam regular rate and rhythm with a 1/6 systolic murmur. ABDOMEN: Exam good bowel sounds with a very mild bruit from the epigastrium to the supraumbilical region. The abdomen is soft with mild epigastric tenderness. No Tenorio sign. No palpable masses. EXTREMITIES: No pedal edema, Dupuytren's contractures or palmar erythema. LABORATORY FINDINGS Today white count 21.7, hemoglobin 14.0, MCV 93.6, platelets 411. INR 1.0. Sodium 139, potassium 3.8, BUN 11, creatinine 0.87. Total bilirubin 0.3. AST 15, ALT 21, alkaline phosphatase 92. CPK and troponin normal. Albumin 4.0, lipase 81. IMAGING A CT scan a week ago revealed no abnormalities except for significant diverticulosis throughout the colon with some colonic wall thickening. Ultrasound performed this morning revealed punctate cholesterol polyp adjacent to the gallbladder wall. Otherwise exam was normal. IMPRESSION Abdominal pain with nausea, vomiting with emesis of food material up to 6 or 7 hours after eating. There is epigastric tenderness and a notable bruit in this patient with vascular disease. In fact, she tells me there is a 30% carotid artery stenosis on the right. Her last colonoscopy, she tells me, was performed with the past 7 or 8 months. At this point we will schedule panendoscopy to evaluate for mucosal disorders, gastric outlet obstruction, ulcer disease. We will consider pyloric dilation if there is stenosis. I have reviewed the procedure with her, including potential risks of medication reaction, bleeding, perforation and a small chance of missing a lesion. If no abnormalities are found we will consider CT angiography of the mesenteric vessels although her pattern is not typical of mesenteric ischemia. A HIDA scan has been considered but at this point [facility] is on [place] all [place] so we cannot perform this study accurately at this time. MD TAISHA Del Toro/BAY /4:50 PM /8:42 PM LUCIEN
[2016-09-02] MEDS ORDERED: LACTATED RINGER'S 1000 ML IV PRN (23:45)
[2016-09-02] MEDS ORDERED: METOPROLOL TARTRATE 25 MG TAB PO PRN (23:45)
[2016-09-02] MEDS ORDERED: CHLORHEXIDINE GLUCONATE 2 % 1 PACK (2 CLOTHS) TOPICAL PRN (23:45)
[2016-09-02] MEDS ORDERED: POVIDONE IODINE 5% (ANTISEPSIS KIT) 4 APPLICATIONS EACH NARE PRN (23:45)
[2016-09-02] MEDS ORDERED: INSULIN HUMAN REGULAR 1,000 UNITS/10 ML VIAL SQ PRN (23:45)
[2016-09-02] MEDS ORDERED: SODIUM CHLORID 0.9% 500 ML IV PRN (23:45)
[2016-09-03] VITALS (9 sets, daily range): BP systolic 123–159; BP diastolic 52–64; PULSE 55–87; RESP 16–18; TEMP 96.7–98.5; O2SAT 96–98
[2016-09-03] MEDS: FAMOTIDINE 20 MG/2 ML VIAL IV PUSH SCH ×3 (00:46→22:58)
[2016-09-03] MEDS: metroNIDAZOLE 500 MG INJ 100 ML IV SCH ×3 (03:20→23:05)
[2016-09-03] MEDS: INSULIN ASPART SUPPLEMENTAL SCALE SQ SCH ×4 (05:57→21:00)
[2016-09-03 06:29] LABS: MEAN CELL VOLUME 93.9 FL (80.0-100.0); MEAN CORPUSCULAR HEMOGLOBIN 31.6 PG (27.0-34.0); MEAN CORPUSCULAR HGB CONC 33.6 % (32.0-36.0); PLATELET COUNT 315 TH/MM3 (150-450); RED BLOOD COUNT 3.62 MIL/MM3 (4.00-5.30); RED CELL DISTRIBUTION WIDTH 13.8 % (11.6-17.2); REVIEW FLAG FINAL; WHITE BLOOD COUNT 16.2 TH/MM3 (4.0-11.0)
[2016-09-03 07:01] LABS: BICARBONATE 22.5 MEQ/L (21.0-32.0); POTASSIUM 3.3 MEQ/L (3.5-5.1)
[2016-09-03] MEDS: ASPIRIN EC 81 MG TABEC PO SCH (08:48)
[2016-09-03] MEDS: LOSARTAN 50 MG TAB PO SCH (08:48)
[2016-09-03] MEDS: FLUTICASONE 100 MCG/VILANTEROL 25 MCG INHALER INH SCH (08:48)
--- NOTE | 2016-09-03 09:58 | GIPROC ---
[facility] [address] [facility]. [facility], [address] EGD PROCEDURE REPORT EXAM DATE: 09/03/2016 PATIENT NAME: Nicole Cabrera MR #: [id number] BIRTHDATE: 1955 ATTENDING: Bishop Montero MD ORDER #: [id number] RAT BREEDER: Marlene Waters and Zuhair Aguiar STATUS: inpatient INDICATIONS: The patient is a 61 yr old female here for an EGD due to epigastric pain with tendernes (better since receiving flagyl) with nausea and vomiting with early satiety. Unremarkable CT scan; no improvement with PPI therapy. PROCEDURE PERFORMED: EGD with biopsy MEDICATIONS: Per Anesthesia. TOPICAL ANESTHETIC: none CONSENT: The patient understands the risks and benefits of the procedure and understands that these risks include, but are not limited to: sedation, allergic reaction, infection, perforation and/or bleeding. Alternative means of evaluation and treatment include, among others: physical exam, x-rays, and/or surgical intervention. The patient elects to proceed with this endoscopic procedure. medical equipment was checked for proper function. Hand hygiene and appropriate measures for infection prevention was taken. After the risks, benefits and alternatives of the procedure were thoroughly explained, Informed consent was verified, confirmed and timeout was successfully executed by the treatment team. The patient was anesthetized with topical anesthesia and the Pentax [id number] endoscope was introduced through the mouth and advanced to the second portion of the duodenum. Retroflexed views revealed no abnormalities The gastroscope was then slowly withdrawn and removed. The esophagus had a ringed appearance; biopsies were taken to check for EOE. The Z-line was normal at the GE junction, at 35cm from the incisors. The gastric mucosa appeared normal. The pylorus was stenotic and was dilated with the tip of the gastroscope. Prominent Sadi's glands were noted in the anterior duodenal bulb; the rest of the bulb and the duodenal sweep appeared normal. ADVERSE EVENTS: There were no complications. IMPRESSIONS: As above RECOMMENDATIONS: Resume prior orders, medications and the gastroparesis diet. PATIENT CONDITION: stable DISPOSITION: Inpatient REPEAT EXAM: NONE Bishop Montero MD eSigned: Bishop Montero MD 09/03/2016 9:57 AM cc: Stu Thayer M.D. PATIENT NAME: Nicole Cabrera MR#: [id number]
[2016-09-03] MEDS: SODIUM CHLOR 0.9% 1000 ML INJ 1,000 ML IV SCH ×2 (11:37→23:08)
[2016-09-03] MEDS: LEVOFLOXACIN 500 MG PREMIX INJ 100 ML IV SCH (11:37)
[2016-09-03] MEDS ORDERED: POTASSIUM CHLORIDE 8 MEQ CONTROLLED RELEASE TAB PO ONE (12:45)
[2016-09-03] MEDS ORDERED: PROPOFOL 200 MG/20 ML AMP IV ONE (13:57)
--- NOTE | 2016-09-03 14:26 | EKG ---
Date Performed: 09/02/2016 Time Performed: 07:04:22 PTAGE: 61 years EKG: SINUS BRADYCARDIA WITH SINUS ARRHYTHMIA BORDERLINE ECG Compared to prior tracing no signifi cant change PREVIOUS TRACING : 08/26/2016 14.14 DOCTOR: Neo Hunter Interpretating Date/Time 09/03/2016 14:25:25
--- NOTE | 2016-09-03 15:37 | HHI.PR ---
Subjective Remarks no abd. pain ate a hamburger for lunch, did okay appetite not fully back no n/v has not had anything for pain no fever anxious to go home Objective Objective Results - Vital Signs Date Time Temp Pulse Resp B/P Pulse Ox O2 Delivery O2 Flow Rate FiO2 09/03/16 14:40 98 21 09/03/16 12:00 96.7 57 18 159/52 97 09/03/16 10:11 57 18 149/62 95 09/03/16 10:01 62 18 142/64 95 09/03/16 09:51 97.9 67 18 125/48 94 09/03/16 08:58 97.1 57 18 143/57 98 09/03/16 08:00 97.1 87 18 143/57 98 09/03/16 04:45 98.2 55 16 126/61 96 09/03/16 00:18 98.5 59 16 123/54 98 09/02/16 20:30 97.3 58 16 115/51 97 09/02/16 18:18 96.7 56 18 121/49 99 I/O 09/02/16 09/02/16 09/02/16 09/03/16 09/03/16 09/03/16 07:00 15:00 23:00 07:00 15:00 23:00 Intake Total 360 ml 240 ml 1370 ml Balance 360 ml 240 ml 1370 ml Intake Oral 360 ml 240 ml IV Total 1170 ml Other 200 ml # Voids 1 2 # Bowel Movements 0 0 Result Diagram: 09/03/1624 09/03/1624 Imaging Last Impressions Gall Bladder Ultrasound 09/02/16613 Signed Impressions: Service Date/Time: Friday, September 02, 2016 09:12 - CONCLUSION: 1. Punctate cholesterol polyp adherent to the gallbladder wall. Examination is otherwise within normal limits. Brock Gibbs MD Chest X-Ray 09/02/16613 Signed Impressions: Service Date/Time: Friday, September 02, 2016 06:28 - CONCLUSION: No acute cardiopulmonary disease. Cody Tanner MD Other Results Laboratory Tests Test 09/03/16 05:24 White Blood Count 16.2 Red Blood Count 3.62 Hemoglobin 11.4 Hematocrit 34.0 Mean Corpuscular Volume 93.9 Mean Corpuscular Hemoglobin 31.6 Mean Corpuscular Hemoglobin 33.6 Concent Red Cell Distribution Width 13.8 Platelet Count 315 Mean Platelet Volume 9.2 Sodium Level 143 Potassium Level 3.3 Chloride Level 110 Carbon Dioxide Level 22.5 Anion Gap 11 Blood Urea Nitrogen 12 Creatinine 0.69 Estimat Glomerular Filtration 86 Rate Random Glucose 75 Calcium Level 8.2 ROS General: No: Fatigue, Weakness HEENT: No: Sore Throat, Dysphagia Cardiac: No: Chest Pain, Edema, Palpitations Pulmonary: No: Cough, SOB, Wheezing GI: No: Abdominal Pain, BM, Diarrhea, N/V /ROPE LAYING MACHINE OPERATOR: No: Dysuria, Urgency Neuro/MS: No: Lightheaded, Confusion Psych: No: Anxiety, Depression Skin: No: Itching, Rash Physical Exam Physical Exam GENERAL: This is a well-nourished, well-developed patient, in no apparent distress. SKIN: No rashes, ecchymoses or lesions. Cool and dry. HEAD: Atraumatic. Normocephalic. No temporal or scalp tenderness. EYES: Pupils equal round and reactive. Extraocular motions intact. No scleral icterus. No injection or drainage. ENT: Nose without bleeding, purulent drainage or septal hematoma. Throat without erythema, tonsillar hypertrophy or exudate. Uvula midline. Airway patent. NECK: Trachea midline. No JVD or lymphadenopathy. Supple, nontender, no meningeal signs. CARDIOVASCULAR: Regular rate and rhythm without murmurs, gallops, or rubs. RESPIRATORY: Clear to auscultation. Breath sounds equal bilaterally. No wheezes , rales, or rhonchi. GASTROINTESTINAL: Abdomen soft, minimal epigastric tenderness, nondistended. Bowel sounds normoactive 4 .No hepato-splenomegaly, or palpable masses. No guarding. MUSCULOSKELETAL: Extremities without clubbing, cyanosis, or edema. No joint tenderness, effusion, or edema noted. No calf tenderness. Negative Homans sign bilaterally. NEUROLOGICAL: Awake, alert oriented 3. Smiling, ambulating in room. No focal deficits Urinary Catheter: No Vascular Central Line Catheter: No A/P Diagnosis: (1) Intractable nausea and vomiting (2) Abdominal pain (3) Leukocytosis (4) HTN (hypertension) (5) DM (diabetes mellitus) (6) GERD (gastroesophageal reflux disease) (7) COPD (chronic obstructive pulmonary disease) Assessment and Plan 61-year-old white female presented to the emergency room with complaint of abdominal pain with intermittent nausea vomiting for the last month. Indicates pain is epigastric, sometimes associated with heartburn. Has had a 14 pound weight loss. Epigastric pain, with intermittent nausea vomiting, rule out PUD. Leukocytosis, etiology unclear. GERD -appreciate GI input, S/P EGD 09/03 pyloric stenosis, ringed esophagus, bx done -symptoms improved, tolerating diet -continue with Fentanyl Patch for pain, Toradol PRN. -Continue antiemetics when necessary, Compazine Pepcid 20 mg IV twice a day -Continue with Levaquin and Cipro, WBC trending down, 16 -will see how she does overnight, if no N/V, plan to dc tomorrow Hypertension, uncontrolled, likely secondary to anxiety and pain Vasotec when necessary has been added continue home meds -BP better Type 2 diabetes Accu-Cheks before meals and at bedtime with insulin therapy COPD stable, Monitor sats DuoNeb's when necessary for wheezing SCDs for DVT prophylaxis Pepcid for GI prophylaxis S/P EGD, did well. Bx pending poss dc in am D/W RN D/W Dr. Chavira D/W pt This patient was seen by myself and Dr. Chavira, this note is written on his behalf Problem Qualifiers (1) Intractable nausea and vomiting: Qualified Code: G43.A1 - Intractable cyclical vomiting with nausea (2) Abdominal pain: Qualified Code: R10.13 - Epigastric pain (3) Leukocytosis: Qualified Code: D72.829 - Leukocytosis, unspecified type (4) HTN (hypertension): Qualified Code: I10 - Essential hypertension (5) DM (diabetes mellitus): Qualified Code: E11.8 - Type 2 diabetes mellitus with complication, without long-term current use of insulin (6) GERD (gastroesophageal reflux disease): Qualified Code: K21.9 - Gastroesophageal reflux disease, esophagitis presence not specified (7) COPD (chronic obstructive pulmonary disease): Qualified Code: J44.9 - Chronic obstructive pulmonary disease, unspecified COPD type Annabella Henderson Sep 03, 2016 15:37
[2016-09-03] MEDS: KETOROLAC TROMETHAMINE 30 MG/ML (IVP) VIAL IV PUSH PRN (22:57)
[2016-09-04 00:45] VITALS: BP 151/70; PULSE 71; RESP 16; TEMP 98.3; O2SAT 97
[2016-09-04] MEDS: metroNIDAZOLE 500 MG INJ 100 ML IV SCH ×2 (03:58→12:00)
[2016-09-04 04:45] VITALS: BP 150/65; PULSE 64; RESP 16; TEMP 98.5; O2SAT 94
[2016-09-04] MEDS: INSULIN ASPART SUPPLEMENTAL SCALE SQ SCH ×2 (05:58→10:35)
[2016-09-04 07:24] LABS: HEMATOCRIT 35.1 % (35.0-46.0); MEAN CELL VOLUME 93.9 FL (80.0-100.0); MEAN CORPUSCULAR HEMOGLOBIN 30.7 PG (27.0-34.0); MEAN CORPUSCULAR HGB CONC 32.7 % (32.0-36.0); PLATELET COUNT 301 TH/MM3 (150-450); RED BLOOD COUNT 3.74 MIL/MM3 (4.00-5.30); RED CELL DISTRIBUTION WIDTH 13.4 % (11.6-17.2); REVIEW FLAG FINAL; WHITE BLOOD COUNT 14.9 TH/MM3 (4.0-11.0)
[2016-09-04 07:35] LABS: BICARBONATE 20.2 MEQ/L (21.0-32.0); POTASSIUM 3.8 MEQ/L (3.5-5.1)
[2016-09-04 08:00] VITALS: PULSE 71; RESP 18; TEMP 97.9; O2SAT 94
[2016-09-04 08:44] VITALS: BP 150/61; PULSE 58
[2016-09-04] MEDS: ASPIRIN EC 81 MG TABEC PO SCH (08:47)
[2016-09-04] MEDS: LOSARTAN 50 MG TAB PO SCH (08:47)
[2016-09-04] MEDS: FLUTICASONE 100 MCG/VILANTEROL 25 MCG INHALER INH SCH (09:15)
--- NOTE | 2016-09-04 10:56 | HHI.GIFU ---
GI Follow-up Note Consult Follow-up Subjective: Patient laying in bed comfortably. Tolerating diet w/o N/V/abd pain. wants to go home Objective: PHYSICAL EXAMINATION: 150/61-58-18 97.8 No fever CHEST: Chest is clear to auscultation and percussion. CARDIAC: Regular rate and rhythm with no murmur gallop or rubs. ABDOMEN: Soft, nondistended, nontender; no hepatosplenomegaly; bowel sounds are present in all four quadrants. EXTREMITIES: No clubbing, cyanosis, or edema. SKIN: no jaundice. PATIENT CARE COORDINATOR: alert and oriented times three. Available Data (labs, X- Rays, Procedures) : WBC down to 14.9 ASSESSMENT/PLAN: 1. abd pain with N/V-etiology unclear. improved PLAN: 1. cont antibiotics (for 1 week) 2. will sign off 3. F/U with Dr. Bland upon D/C It was a pleasure seeing Nicole Cabrera Thank you for this consult. Entered by: Armen Farrar MD Sep 04, 2016 10:56
--- NOTE | 2016-09-04 11:20 | HHI.DCPOC ---
Discharge Care Plan Diagnosis: (1) GERD (gastroesophageal reflux disease) (2) Abdominal pain (3) HTN (hypertension) (4) DM (diabetes mellitus) (5) Intractable nausea and vomiting Your Health Problems Are: Irregular Bowel Function Goals to Promote Your Health * To prevent worsening of your condition and complications * To maintain your health at the optimal level Directions to Meet Your Goals Take your medications as prescribed Follow your dietary instruction Follow activity as directed Keep your appointments as scheduled Take your immunizations and boosters as scheduled If your symptoms worsen call your PCP, if no PCP go to Urgent Care Center or Emergency Room Smoking is Dangerous to Your Health. Avoid second hand smoke Call the 24-hour hour crisis hotline for domestic abuse at Annabella HendersonP Sep 04, 2016 11:20
[2016-09-04] MEDS ORDERED: LEVA500T20 PO (11:23)
[2016-09-04] MEDS ORDERED: METR-1 PO (11:23)
--- NOTE | 2016-09-04 11:23 | HHI.PR ---
Subjective Remarks no abd. pain eating well no n/v no fever no cp no sob anxious to go home (Annablela Henderson) Objective Objective Results - Vital Signs Date Time Temp Pulse Resp B/P Pulse Ox O2 Delivery O2 Flow Rate FiO2 09/04/16 08:44 58 150/61 09/04/16 08:00 97.9 71 18 94 09/04/16 04:45 98.5 64 16 150/65 94 09/04/16 00:45 98.3 71 16 151/70 97 09/03/16 23:57 18 09/03/16 20:35 98.2 65 16 146/64 98 09/03/16 17:28 96 21 09/03/16 16:00 98.1 59 18 144/63 96 09/03/16 14:40 98 21 09/03/16 12:00 96.7 57 18 159/52 97 I/O 09/03/16 09/03/16 09/03/16 09/04/16 09/04/16 09/04/16 07:00 15:00 23:00 07:00 15:00 23:00 Intake Total 240 ml 2270 ml 480 ml 1269 ml Balance 240 ml 2270 ml 480 ml 1269 ml Intake Oral 240 ml 900 ml 480 ml 480 ml IV Total 1170 ml 789 ml Other 200 ml # Voids 2 3 2 2 # Bowel Movements 0 3 0 0 (Annabella Henderson) Result Diagram: 09/04/16 0642 09/04/1642 Imaging Last Impressions Gall Bladder Ultrasound 09/02/16613 Signed Impressions: Service Date/Time: Friday, September 02, 2016 09:12 - CONCLUSION: 1. Punctate cholesterol polyp adherent to the gallbladder wall. Examination is otherwise within normal limits. Brock Gibbs MD Chest X-Ray 09/02/16613 Signed Impressions: Service Date/Time: Friday, September 02, 2016 06:28 - CONCLUSION: No acute cardiopulmonary disease. Cody Tanner MD Other Results Laboratory Tests Test 09/04/16 06:42 White Blood Count 14.9 Red Blood Count 3.74 Hemoglobin 11.5 Hematocrit 35.1 Mean Corpuscular Volume 93.9 Mean Corpuscular Hemoglobin 30.7 Mean Corpuscular Hemoglobin 32.7 Concent Red Cell Distribution Width 13.4 Platelet Count 301 Mean Platelet Volume 9.4 Sodium Level 139 Potassium Level 3.8 Chloride Level 108 Carbon Dioxide Level 20.2 Anion Gap 11 Blood Urea Nitrogen 9 Creatinine 0.63 Estimat Glomerular Filtration 96 Rate Random Glucose 86 Calcium Level 7.9 (Annabella Henderson) ROS General: No: Fatigue, Weakness HEENT: No: Sore Throat, Dysphagia Cardiac: No: Chest Pain, Edema, Palpitations Pulmonary: No: Cough, SOB, Wheezing GI: No: Abdominal Pain, BM, Diarrhea, N/V /RN TRANSFER: No: Dysuria, Urgency Neuro/MS: No: Lightheaded, Confusion Psych: No: Anxiety, Depression Skin: No: Itching, Rash (Annabella Henderson) Physical Exam Physical Exam GENERAL: This is a well-nourished, well-developed patient, in no apparent distress. SKIN: No rashes, ecchymoses or lesions. Cool and dry. HEAD: Atraumatic. Normocephalic. No temporal or scalp tenderness. EYES: Pupils equal round and reactive. Extraocular motions intact. No scleral icterus. No injection or drainage. ENT: Nose without bleeding, purulent drainage or septal hematoma. Throat without erythema, tonsillar hypertrophy or exudate. Uvula midline. Airway patent. NECK: Trachea midline. No JVD or lymphadenopathy. Supple, nontender, no meningeal signs. CARDIOVASCULAR: Regular rate and rhythm without murmurs, gallops, or rubs. RESPIRATORY: Clear to auscultation. Breath sounds equal bilaterally. No wheezes , rales, or rhonchi. GASTROINTESTINAL: Abdomen soft, minimal epigastric tenderness, nondistended. Bowel sounds normoactive 4 .No hepato-splenomegaly, or palpable masses. No guarding. MUSCULOSKELETAL: Extremities without clubbing, cyanosis, or edema. No joint tenderness, effusion, or edema noted. No calf tenderness. Negative Homans sign bilaterally. NEUROLOGICAL: Awake, alert oriented 3. Smiling, ambulating in room. No focal deficits (Annabella Henderson) Urinary Catheter: No (Annabella Henderson) Vascular Central Line Catheter: No (Annabella Henderson) A/P Diagnosis: (1) Intractable nausea and vomiting (2) Abdominal pain (3) Leukocytosis (4) HTN (hypertension) (5) DM (diabetes mellitus) (6) GERD (gastroesophageal reflux disease) (7) COPD (chronic obstructive pulmonary disease) Assessment and Plan 61-year-old white female presented to the emergency room with complaint of abdominal pain with intermittent nausea vomiting for the last month. Indicates pain is epigastric, sometimes associated with heartburn. Has had a 14 pound weight loss. Epigastric pain, with intermittent nausea vomiting, rule out PUD. Leukocytosis, etiology unclear. Inc. eosinophils. Pt. endorses prior hx of leukocytosis, saw dr. Bailon GERD -appreciate GI input, S/P EGD 09/03 pyloric stenosis, ringed esophagus, bx done -symptoms improved, tolerating diet -continue with Fentanyl Patch for pain, Toradol PRN. -Continue antiemetics when necessary, Compazine Pepcid 20 mg IV twice a day -Continue with Levaquin and Cipro, WBC trending down -tolerated diet well, no n/v. Cleared by GI and to continue abx x 1 week. D/W pt and , no ETOH while on abx. Complete course. Hypertension, uncontrolled, likely secondary to anxiety and pain Vasotec when necessary has been added continue home meds -BP better Type 2 diabetes Accu-Cheks before meals and at bedtime with insulin therapy COPD stable, Monitor sats DuoNeb's when necessary for wheezing SCDs for DVT prophylaxis Pepcid for GI prophylaxis S/P EGD, did well. Bx pending F/U GI in 2 weeks Diet-soft, heart healthy, no ETOH Activity-as tolerated D/W RN D/W Dr. Chavira D/W pt/ This patient was seen by myself and Dr. Chavira, this note is written on his behalf Discharge Planning 40 (Annabella Henderson) Assessment and Plan pt is seen & examined d/w PT & sig other at bedside d/w Annabella lara w above d/c home f/u pcp f/u GI f/u pending path report (Beverly Chavira MD) Problem Qualifiers (1) Intractable nausea and vomiting: Qualified Code: G43.A1 - Intractable cyclical vomiting with nausea (2) Abdominal pain: Qualified Code: R10.13 - Epigastric pain (3) Leukocytosis: Qualified Code: D72.829 - Leukocytosis, unspecified type (4) HTN (hypertension): Qualified Code: I10 - Essential hypertension (5) DM (diabetes mellitus): Qualified Code: E11.8 - Type 2 diabetes mellitus with complication, without long-term current use of insulin (6) GERD (gastroesophageal reflux disease): Qualified Code: K21.9 - Gastroesophageal reflux disease, esophagitis presence not specified (7) COPD (chronic obstructive pulmonary disease): Qualified Code: J44.9 - Chronic obstructive pulmonary disease, unspecified COPD type Annabella Henderson Sep 04, 2016 11:23 Beverly Chavira MD Sep 04, 2016 11:50
[2016-09-04] MEDS: FAMOTIDINE 20 MG/2 ML VIAL IV PUSH SCH (12:00)
[2016-09-04] MEDS: LEVOFLOXACIN 500 MG PREMIX INJ 100 ML IV SCH (12:00)
[2016-09-05] MEDS ORDERED: REMOVE OLD DURAGESIC (FENTANYL) PATCH T-DERMAL SCH (18:00)
--- NOTE | 2016-09-05 19:20 | HHI.DS ---
Discharge Summary Admission Date Sep 02, 2016 at 11:01 Discharge Date: Sep 04, 2016 Admitting Diagnosis Intractable nause/vomiting, abdominal pain, diabetes, leukocytosis (1) Intractable nausea and vomiting (2) Abdominal pain (3) Leukocytosis (4) HTN (hypertension) (5) DM (diabetes mellitus) (6) GERD (gastroesophageal reflux disease) (7) COPD (chronic obstructive pulmonary disease) CBC/BMP: 09/04/16 0642 09/04/16 0642 Significant Findings Laboratory Tests Test 09/03/16 09/04/16 05:24 06:42 White Blood Count 16.2 TH/MM3 14.9 TH/MM3 (4.0-11.0) (4.0-11.0) Red Blood Count 3.62 MIL/MM3 3.74 MIL/MM3 (4.00-5.30) (4.00-5.30) Hemoglobin 11.4 GM/DL 11.5 GM/DL (11.6-15.3) (11.6-15.3) Hematocrit 34.0 % (35.0-46.0) Potassium Level 3.3 MEQ/L (3.5-5.1) Chloride Level 110 MEQ/L 108 MEQ/L (98-107) (98-107) Estimat Glomerular Filtration 86 ML/MIN (>89) Rate Calcium Level 8.2 MG/DL 7.9 MG/DL (8.5-10.1) (8.5-10.1) Carbon Dioxide Level 20.2 MEQ/L (21.0-32.0) Imaging Last Impressions Gall Bladder Ultrasound 09/02/16613 Signed Impressions: Service Date/Time: Friday, September 02, 2016 09:12 - CONCLUSION: 1. Punctate cholesterol polyp adherent to the gallbladder wall. Examination is otherwise within normal limits. Brock Gibbs MD Chest X-Ray 09/02/16613 Signed Impressions: Service Date/Time: Friday, September 02, 2016 06:28 - CONCLUSION: No acute cardiopulmonary disease. Cody Tanner MD Hospital Course This a 61-year-old white female with significant past medical history diabetes, arthritis, hypertension, acid reflux, diverticulitis, Lyme disease. Patient presents to the emergency room with complaint of abdominal pain with nausea and vomiting that started a month ago. Patient indicates that the pain is midepigastric, it is severe it is intermittent. At times pain is exacerbated after eating and sometimes it comes on its own. She's had episodes of nausea vomiting that are sometimes severe the last one was 2 days ago. She believes she has lost approximately 14 pounds. Indicates the vomitus thick, white, no blood. Bowel movements have been regular, they are brown, mushy consistency. She went to see her primary care physician about 3 weeks ago and was prescribed Prevacid for possible gastric ulcers. On Friday she went to see Dr. Deal whom she had seen in the past for a colonoscopy and prior history of diverticulosis. Dr. Deal referred her to see workforce planning analyst Dr. Bland. She went to see Dr. Bland on and he recommended upper endoscopy and ordered a small bowel follow-through and ultrasound of the gallbladder. Patient did not get a chance to get the diagnostic studies done. Patient stated that the pain restarted along with intractable nausea and vomiting. She' s had chills, no fever. Denied any chest pain, no shortness of breath. She was seen in the emergency room approximately a week ago and had a CT of the abdomen that was unremarkable. Patient was evaluated in the emergency room, laboratory workup was completed. BMP remarkable for GFR of 66, glucose of 107. Troponin negative. CBC remarkable for leukocytosis, WBC 21.7. Chest x-ray did not reveal any significant findings. Ultrasound of the gallbladder show punctate cholesterol polyp adherent to the gallbladder wall. Otherwise examination is normal. Patient has allergies to Dilaudid morphine and Zofran. Indicated she has itching and hives. She was medicated with a total of 75 mg of Demerol IV as well as Reglan. During examination, she continued to complain of severe pain. Her was at bedside providing a lot of details of the last month. Patient was hard of hearing due to prior history of Lyme disease. She appeared very anxious and was complaining of recurring pain. She was having dry heaves. Patient stated she's not had any pain like this, at times she does have reflux associated with pain. She takes baby aspirin. Had been taking hydrocodone at least twice a day to control the pain. Patient was admitted for further evaluation and treatment for: (1) Intractable nausea and vomiting (2) Abdominal pain (3) Leukocytosis (4) HTN (hypertension) (5) DM (diabetes mellitus) (6) GERD (gastroesophageal reflux disease) (7) COPD (chronic obstructive pulmonary disease) During the course of the hospitalization, the following took place: 61-year-old white female presented to the emergency room with complaint of abdominal pain with intermittent nausea vomiting for the last month. Indicates pain is epigastric, sometimes associated with heartburn. Has had a 14 pound weight loss. Epigastric pain, with intermittent nausea vomiting, rule out PUD. Leukocytosis, etiology unclear. Inc. eosinophils. Pt. endorsed prior hx of leukocytosis, saw dr. Bailon GERD -Initially put on IV fluids, started on PPI. Empiric antibiotics started, Levaquin and Cipro. WBC started to trend down. -continue with Fentanyl Patch for pain, Toradol PRN. -Continue antiemetics when necessary, Compazine -appreciated GI input, EGD recommended. S/P EGD 09/03 pyloric stenosis, ringed esophagus, bx done -symptoms improved, tolerated diet -tolerated diet well, no n/v. Cleared by GI and to continue abx x 1 week. D/W pt and , no ETOH while on abx.and to complete course. Hypertension, uncontrolled, likely secondary to anxiety and pain Vasotec when necessary was added continued home meds -BP better Type 2 diabetes Accu-Cheks before meals and at bedtime with insulin therapy COPD stable, Monitor sats DuoNeb's when necessary for wheezing SCDs for DVT prophylaxis Pepcid for GI prophylaxis Patient stabilized, she was discharged home. S/P EGD, did well. Bx pending F/U GI in 2 weeks Diet-soft, heart healthy, no ETOH Activity-as tolerated Pt Condition on Discharge: Stable Discharge Disposition: Discharge Home Discharge Instructions DIET: Follow Instructions for: Heart Healthy Diet Activities you can perform: Weight Bearing as Jacky Follow up Referrals: Gastroenterology - 2 Weeks with Anuj Bland MD PCP Follow-up New Medications: Levofloxacin (Levaquin) 500 Mg Tablet 500 TAB PO DAILY Infection #7 TAB Metronidazole (Flagyl) 500 Mg Tab 500 MG PO TID Infection #21 Ref 0 TAB Continued Medications: Acarbose (Acarbose) 25 Mg Tab 25 MG PO TID Take with first bite of meal. Blood Sugar Management #90 Ref 0 TAB Albuterol Powder Inh (Proair Respiclick Inh) 90 Mcg/Act Aerp 1 PUFF INH Q4H PRN SHORTNESS OF BREATH #1 Ref [address] (Aspirin 81) 81 Mg Tabdr 81 MG PO DAILY Ref 0 TAB Diclofenac Sodium (Voltaren) 100 Gm Gel..gram. Estradiol Valerate Inj (Delestrogen Valerate Inj) 40 Mg/Ml Inj Fexofenadine-Pseudoephedrine ER 12 HR (Yamilet-D 12 Hour Allergy) 60-120 Mg Olivia 1 TAB PO BID Allergy Management #60 Ref 0 TAB Fluticasone-Vilanterol Inh (Breo Ellipta Inh) 100-25 Mcg/Act Inh 1 PUFF INH DAILY Use daily at the same time. #1 Ref 0 INHALER Hydrocodone-Acetaminophen (Hydrocodone-Acetaminophen) 5-325 mg Tab 1 TAB PO Q6H PRN PAIN Ref 0 TAB Inulin/Sorbitol (Fiber Choice Chewable Tablet) 1.5 Gm Tab.chew Lansoprazole (Prevacid) 30 Mg Capdr 30 MG PO DAILY Ref 0 CAP Mometasone Topical (Mometasone Topical) 0.1 % Lotn 1 APPLIC TOPICAL DAILY #1 Ref 0 BOTTLE Multiple Vitamin (Multi-Day Vitamins) 1 Tab Tab Olmesartan (Benicar) 20 Mg Tab 20 MG PO DAILY Blood Pressure Management #30 Ref 0 TAB Ranitidine (Ranitidine) 150 Mg Tab 150 MG PO DAILY Heartburn Management #30 Ref 0 TAB Annabella Henderson Sep 05, 2016 19:20
== END 2016-09-04 12:28 | disposition home health service (06) | DRG 392 ==
LOC: NEPE 05:53 → NEDA 10:08 → OBSVTOIN 11:01 → N06A 13:57
PROVIDERS: ADMIT Specialist; ATTEND Specialist
PROC: 0DB58ZX Excision of Esophagus, Via Natural or Artificial Opening Endoscopic, Diagnostic (ICD-10-PCS; principal; 2016-09-03 09:25)
DX: R10.13 Epigastric pain (principal); E11.8 Type 2 diabetes mellitus with unspecified complications; K31.1 Adult hypertrophic pyloric stenosis; I65.21 Occlusion and stenosis of right carotid artery; R11.2 Nausea with vomiting, unspecified; I10 Essential (primary) hypertension; J44.9 Chronic obstructive pulmonary disease, unspecified; K21.0 Gastro-esophageal reflux disease with esophagitis; K66.0 Peritoneal adhesions (postprocedural) (postinfection); H91.90 Unspecified hearing loss, unspecified ear; F41.9 Anxiety disorder, unspecified; Z86.19 Personal history of other infectious and parasitic diseases; Z86.73 Personal history of transient ischemic attack (TIA), and cerebral infarction without residual deficits; Z90.710 Acquired absence of both cervix and uterus
CPT/HCPCS: 71010; 76705; 80048; 80053; 82550; 82948; 83690; 84484; 85025; 85027; 85610; 85730; 88305; 93005; 96372; 96374; 96375; C9113; J0780; J1885; J1956; J2175; J2765; J7030

== ENCOUNTER 2016-09-06 04:55 | Inpatient (IN) | payer BC ==
[2016-09-06] VITALS (10 sets, daily range): BP systolic 125–215; BP diastolic 62–116; PULSE 53–80; RESP 14–20; TEMP 98.6–98.7; O2SAT 98–100
[~2016-09-06] VITALS: Ht 152.4 cm; Wt 57.1 kg
[~2016-09-06 04:55] MED LIST changes: +LEVA500T20 PO; +METR-1 PO; -ZOFR4TAB3 SL
[2016-09-06] MEDS ORDERED: SODIUM CHLOR 0.9% 1000 ML INJ 1,000 ML IV SCH (05:17)
--- NOTE | 2016-09-06 05:19 | PD ---
HPI Chief Complaint: Abdominal Pain Time Seen by Provider: 05:16 Travel History International Travel<30 days: No Contact w/Intl Traveler<30days: No Traveled to known affect area: No History of Present Illness HPI 61-year-old female arrives complaining of nausea vomiting and abdominal pain for about 10-12 hours. EMS gave Zofran and Benadryl en route which was marginally helpful. Abdominal pain is epigastric in location. She describes the pain as a something is stuck in the region of the epigastrium. She arrives by EMS. An EGD was performed 2 days ago revealing pyloric stenosis involving the esophagus. Biopsy was performed. She was admitted due to intractable nausea and vomiting with abdominal pain 5 days ago and was discharged 2 days ago. GI is Dr Bland. [facility] Past Medical History Hx Anticoagulant Therapy: Yes (BABY ASA) Arthritis: Yes (NECK) Asthma: Yes Blood Disorders: No Anxiety: No Depression: No Cancer: No Cardiovascular Problems: Yes Chemotherapy: No COPD: Yes Diabetes: Yes (TYPE 2) Patient Takes Glucophage: Yes Diminished Hearing: No Endocrine: No GERD: Yes Genitourinary: No Hypertension: Yes Immune Disorder: No Implanted Vascular Access Dvce: No Musculoskeletal: Yes Neurologic: No Psychiatric: No Reproductive: No Respiratory: Yes (ASTHMA) Radiation Therapy: No Thyroid Disease: No Tetanus Vaccination: < 5 Years Influenza Vaccination: No Past Surgical History Abdominal Surgery: Yes (TUMMY TUCK) Gynecologic Surgery: Yes (HYSTERECTOMY 1996) Hysterectomy: Yes Thoracic Surgery: Yes (BREAST AUGMENTAION) Other Surgery: Yes (arthroscopy knee) Social History Alcohol Use: Yes (couple times a week ) Tobacco Use: No Substance Use: No Allergies-Medications (Allergen,Severity, Reaction): Coded Allergies: Bumble Bee (Verified Allergy, Severe, Hives, 09/06/16) Morphine (Verified Allergy, Severe, Hives, 09/06/16) Penicillin (Verified Allergy, Severe, Shortness of Breath, 09/06/16) Prednisone (Verified Allergy, Severe, EXERBATION OF DIVERTICULIS, 09/06/16) Dilaudid (Verified Allergy, Intermediate, ITCHING, 09/06/16) Protonix (Verified Allergy, Intermediate, Hives, 09/06/16) Codeine (Verified Allergy, Mild, Hallucinations, 09/06/16) Sulfa (Verified Allergy, Mild, Hives, 09/06/16) Reported Meds & Prescriptions Reported Meds & Active Scripts Active Flagyl (Metronidazole) 500 Mg Tab 500 Mg PO TID Levaquin (Levofloxacin) 500 Mg Tablet 500 Tab PO DAILY Reported Prevacid (Lansoprazole) 30 Mg Capdr 30 Mg PO DAILY Breo Ellipta Inh (Fluticasone/Vilanterol) 100-25 Mcg/Act Inh 1 Puff INH DAILY Use daily at the same time. Voltaren (Diclofenac Sodium) 100 Gm Gel..gram. Ranitidine (Ranitidine HCl) 150 Mg Tab 150 Mg PO DAILY Proair Respiclick Inh (Albuterol Sulfate) 90 Mcg/Act Aerp 1 Puff INH Q4H PRN Multi-Day Vitamins (Multiple Vitamin) 1 Tab Tab Mometasone Topical (Mometasone Furoate) 0.1 % Lotn 1 Applic TOPICAL DAILY Hydrocodone-Acetaminophen 5-325 mg Tab 1 Tab PO Q6H PRN Fiber Choice Chewable Tablet (Inulin/Sorbitol) 1.5 Gm Tab.chew Delestrogen Valerate Inj (Estradiol Valerate) 40 Mg/Ml Inj Benicar (Olmesartan) 20 Mg Tab 20 Mg PO DAILY Aspirin 81 (Aspirin) 81 Mg Tabdr 81 Mg PO DAILY Yamilet-D 12 Hour Allergy (Fexofenadine-Pseudoephedrine ER 12 HR) 60-120 Mg Olivia 1 Tab PO BID Acarbose 25 Mg Tab 25 Mg PO TID Take with first bite of meal. Review of Systems Except as stated in HPI: all other systems reviewed are Neg Physical Exam Narrative GENERAL: 61 yo F, moderate distress, WNWD SKIN: Warm and dry. HEAD: Atraumatic. Normocephalic. EYES: Pupils equal and round. No scleral icterus. No injection or drainage. ENT: No nasal bleeding or discharge. Mucous membranes pink and moist. NECK: Trachea midline. No JVD. CARDIOVASCULAR: Regular rate and rhythm. RESPIRATORY: No accessory muscle use. Clear to auscultation. Breath sounds equal bilaterally. GASTROINTESTINAL: Soft. TTP epigastrium. MUSCULOSKELETAL: Extremities without clubbing, cyanosis, or edema. No obvious deformities. NEUROLOGICAL: Awake and alert. No obvious cranial nerve deficits. Motor grossly within normal limits. Five out of 5 muscle strength in the arms and legs. Normal speech. PSYCHIATRIC: Appropriate mood and affect; insight and judgment normal. Data Data Last Documented VS Vital Signs Date Time Temp Pulse Resp B/P Pulse Ox O2 Delivery O2 Flow Rate FiO2 09/06/16 06:37 66 18 195/116 100 Room Air 09/06/16 04:59 98.7 640AM 195/116 is BP Orders Complete Blood Count With Diff (09/06/16 05:17) Comprehensive Metabolic Panel (09/06/16 05:17) Lipase (09/06/16 05:17) Lactic Acid (09/06/16 05:17) Urinalysis - C+S If Indicated (09/06/16 05:17) Iv Access Insert/Monitor (09/06/16 05:17) Ecg Monitoring (09/06/16 05:17) Oximetry (09/06/16 05:17) Sodium Chlor 0.9% 1000 Ml Inj (Ns 1000 M (09/06/16 05:17) Sodium Chloride 0.9% Flush (Ns Flush) (09/06/16 05:30) Sodium Chlor 0.9% 1000 Ml Inj (Ns 1000 M (09/06/16 05:30) Prochlorperazine Inj (Compazine Inj) (09/06/16 05:30) Ct Abd/Pel W Iv Contrast(Rout) (09/06/16 06:17) Oral Contrast - Adult (09/06/16 06:23) Diatrizoate Liq ( Gastroview Liq) (09/06/16 06:38) Labs Laboratory Tests Test 09/06/16 05:31 White Blood Count 20.2 TH/MM3 Red Blood Count 4.50 MIL/MM3 Hemoglobin 13.9 GM/DL Hematocrit 41.7 % Mean Corpuscular Volume 92.6 FL Mean Corpuscular Hemoglobin 30.9 PG Mean Corpuscular Hemoglobin 33.4 % Concent Red Cell Distribution Width 13.9 % Platelet Count 367 TH/MM3 Mean Platelet Volume 9.7 FL Neutrophils (%) (Auto) 80.1 % Lymphocytes (%) (Auto) 11.1 % Monocytes (%) (Auto) 1.9 % Eosinophils (%) (Auto) 6.4 % Basophils (%) (Auto) 0.5 % Neutrophils # (Auto) 16.2 TH/MM3 Lymphocytes # (Auto) 2.2 TH/MM3 Monocytes # (Auto) 0.4 TH/MM3 Eosinophils # (Auto) 1.3 TH/MM3 Basophils # (Auto) 0.1 TH/MM3 CBC Comment DIFF FINAL Differential Comment Sodium Level 140 MEQ/L Potassium Level 3.2 MEQ/L Chloride Level 106 MEQ/L Carbon Dioxide Level 18.5 MEQ/L Anion Gap 16 MEQ/L Blood Urea Nitrogen 8 MG/DL Creatinine 0.68 MG/DL Estimat Glomerular Filtration 88 ML/MIN Rate Random Glucose 136 MG/DL Lactic Acid Level 1.9 mmol/L Calcium Level 9.4 MG/DL Total Bilirubin 0.5 MG/DL Aspartate Amino Transf 24 U/L (AST/SGOT) Alanine Aminotransferase 36 U/L (ALT/SGPT) Alkaline Phosphatase 102 U/L Total Protein 7.4 GM/DL Albumin 4.1 GM/DL Lipase 63 U/L [facility] Medical Decision Making Medical Screen Exam Complete: Yes Emergency Medical Condition: Yes Medical Record Reviewed: Yes Differential Diagnosis Constipation, Gastritis, Acute Cholecystitis, Biliary Colic, Pancreatitis, HALEY , Hepatitis, Bowel Obstruction, Cystitis, Mesenteric Ischemia, AAA, Appendicitis , Renal Stone/Hydronephrosis, GERD, perforated viscous Narrative Course CBC & BMP Diagram 09/06/16 05:31 Anion gap is 16 LFTs are normal Lactic acid 1.9 Lipase is 63 Compazine and IV fluids given here. Patient has a resting comfortably. There is marked leukocytosis and anion gap acidosis. Hypokalemia also noted as is bicarbonate of 18.5. CT pelvis with contrast added on. Oncoming provider will follow-up imaging with plan likely for admission. Brock Douglas MD Sep 06, 2016 05:19 Brock Douglas MD Sep 06, 2016 05:19
[2016-09-06] MEDS ORDERED: SODIUM CHLORIDE 0.9% FLUSH 10 ML FLUSH IV FLUSH PRN (05:30)
[2016-09-06] MEDS ORDERED: SODIUM CHLOR 0.9% 1000 ML INJ 1,000 ML IV ONE ×2 (05:30→10:00)
[2016-09-06] MEDS ORDERED: PROCHLORPERAZINE INJ 10 MG/2 ML VIAL IV PUSH ONE (05:30)
[2016-09-06 05:43] LABS: AUTOMATED NEUTROPHIL # 16.2 TH/MM3 (1.8-7.7); BASOPHIL # 0.1 TH/MM3 (0-0.2); BASOPHIL % 0.5 % (0.0-2.0); EOSINOPHIL # 1.3 TH/MM3 (0-0.4); EOSINOPHIL % 6.4 % (0.0-4.0); HEMATOCRIT 41.7 % (35.0-46.0); HEMO FLAGS DIFF FINAL; LYMPH % 11.1 % (9.0-44.0); LYMPHOCYTE # 2.2 TH/MM3 (1.0-4.8); MEAN CELL VOLUME 92.6 FL (80.0-100.0); MEAN CORPUSCULAR HEMOGLOBIN 30.9 PG (27.0-34.0); MEAN CORPUSCULAR HGB CONC 33.4 % (32.0-36.0); MONO % 1.9 % (0.0-8.0); NEUT % 80.1 % (16.0-70.0); PLATELET COUNT 367 TH/MM3 (150-450); RED CELL DISTRIBUTION WIDTH 13.9 % (11.6-17.2); WHITE BLOOD COUNT 20.2 TH/MM3 (4.0-11.0)
[2016-09-06 06:00] LABS: ALT (GPT) 36 U/L (10-53); ANION GAP 16 MEQ/L (5-15); AST (GOT) 24 U/L (15-37); BICARBONATE 18.5 MEQ/L (21.0-32.0); BLOOD UREA NITROGEN 8 MG/DL (7-18); CHLORIDE 106 MEQ/L (98-107); GLOMERULAR FILTRATION RATE 88 ML/MIN (>89); POTASSIUM 3.2 MEQ/L (3.5-5.1); SODIUM (NA) 140 MEQ/L (136-145)
[2016-09-06 06:02] LABS: ALKALINE PHOSPHATASE 102 U/L (45-117); TOTAL BILIRUBIN ADULT 0.5 MG/DL (0.2-1.0)
[2016-09-06] MEDS ORDERED: DIATRIZOATE MEGLUM/DIATRIZOATE SOD 9 ML CUP ONE (06:38)
[2016-09-06] MEDS ORDERED: IOHEXOL 350 MG/ML 10 ML VIAL (for RAD DIAG) IV ONE (08:28)
--- NOTE | 2016-09-06 09:21 | RADRPT ---
EXAM DATE/TIME: 09/06/2016 08:25 [facility] COMPARISON: CT ABDOMEN & PELVIS W CONTRAST, July 08, 2013, 12:12. CT ABDOMEN & PELVIS W CONTRAST, August 26, 2016 , 15:31. INDICATIONS : Evaluate for abdominal obstruction. IV CONTRAST: 95 cc Omnipaque 350 (iohexol) IV ORAL CONTRAST: Prescribed oral contrast ingested. RADIATION DOSE: 4.79 CTDIvol (mGy) MEDICAL HISTORY : Hypertension. Diabetes mellitus type 2. COPD,GERD. SURGICAL HISTORY : Hysterectomy. ENCOUNTER: Initial ACUITY: 1 week PAIN SCALE: 9/10 LOCATION: upper quadrant TECHNIQUE: Volumetric scanning of the abdomen and pelvis was performed. Using automated exposure control and ad justment of the mA and/or kV according to patient size, radiation dose was kept as low as reasonably achievable to obtain optimal diagnostic quality images. FINDINGS: LOWER LUNGS: The visualized lower lungs are clear. LIVER: There is a tiny stable subcentimeter probable cyst within the anterior aspect of the liver. There is no dilation of the biliary tree. No calcified gallstones. SPLEEN: Normal size without lesion. PANCREAS: Within normal limits. KIDNEYS: Normal in size and shape. There is no mass, stone or hydronephrosis. There is a tiny 7 mm cyst withi n the medial aspect of the right kidney. ADRENAL GLANDS: Within normal limits. VASCULAR: There is no aortic aneurysm. BOWEL/MESENTERY: Uncomplicated colonic diverticulosis is noted. No acute diverticulitis is noted. No bowel obstruction is noted. ABDOMINAL WALL: Within normal limits. RETROPERITONEUM: There is no lymphadenopathy. BLADDER: No wall thickening or mass. REPRODUCTIVE: Within normal limits. INGUINAL: There is no lymphadenopathy or hernia. MUSCULOSKELETAL: Within normal limits for patient age. CONCLUSION: Uncomplicated colonic diverticulosis. Tiny stable subcentimeter cyst within the anterior aspect of th e liver. 7 mm simple cyst within the medial aspect of the upper pole of the right kidney. Reji Dodd MD on September 06, 2016 at 9:14 Board Certified Radiologist. This report was verified electronically.
[2016-09-06] MEDS ORDERED: PIPERACIL-TAZO 4.5 GM PREMIX 100 ML IV ONE (09:30)
[2016-09-06 09:58] LABS: BACTERIA, URINE RARE /hpf; BLOOD, URINE TRACE (NEG); COMMENT (UR) CULT NOT INDICATED; CULTURE IF INDICATED CULT NOT INDICATED; GLUCOSE,URINE TRACE mg/dL (NEG); KETONE, URINE 150 mg/dL (NEG); MUCUS URINE FEW /lpf (OCC); NITRITE,URINE NEG (NEG); SQUAMOUS EPITHELIAL CELL URINE 1 /hpf (0-5); URINE COLOR LIGHT-YELLOW (YELLW/STRAW)
[2016-09-06] MEDS ORDERED: metroNIDAZOLE 500 MG INJ 100 ML IV ONE (10:00)
[2016-09-06] MEDS ORDERED: LEVOFLOXACIN 500 MG PREMIX INJ 100 ML IV ONE (10:00)
--- NOTE | 2016-09-06 10:23 | RADRPT ---
EXAM DATE/TIME: 09/06/2016 09:50 [facility] COMPARISON: CHEST SINGLE AP, September 02, 2016, 6:28. INDICATIONS : Shortness of breath. MEDICAL HISTORY : Hypertension. Chronic obstructive pulmonary disease. Diabetes mellitus type II. SURGICAL HISTORY : Hysterectomy. ENCOUNTER: Initial ACUITY: 1 day PAIN SCORE: 0/10 LOCATION: Bilateral chest FINDINGS: A single view of the chest demonstrates the lungs to be symmetrically aerated without evidence of mas s, infiltrate or effusion. The cardiomediastinal contours are unremarkable. Osseous structures are intact. CONCLUSION: 1. No acute cardiopulmonary disease. Sanjeev Hector MD on September 06, 2016 at 10:12 Board Certified Radiologist. This report was verified electronically.
--- NOTE | 2016-09-06 10:29 | PD ---
Physical Exam Date Seen by Provider: Sep 06, 2016 Time Seen by Provider: 10:23 Narrative 61-year-old female came to the emergency room with history of epigastric pain since yesterday evening. Patient was admitted on Friday for the same complain and had an endoscopy done which showed gastric outlet syndrome. She was discharged home on Friday. As per her she was feeling fine on Friday and did mostly fine yesterday morning but the pain started since yesterday evening. Patient was doubled over all night long. Finally the decided to bring her to the emergency room medical consultant. She was seen by the previous ER physician. Please refer to his notes for history and physical details. Sign out to me was to follow-up on the CAT scan report. Blood test results showed significant leukocytosis and metabolic acidosis with increased anion gap. CT scan report came back and does not show any surgical pathology. I looked at her previous imaging and she had an ultrasound done couple days ago and that was negative for any Colace cystitis or cholelithiasis. Patient had received IV fluid and pain medication. I've ordered antibiotic for her. Back and reassessed her and she says her pain is little bit better but she is laying in a position however. I decided to readmit her given her clinical appearance and her labs. UA is suggestive of significant dehydration as well. Awaiting for the hospitalist to call back. I put a call out for her GI specialist as well. Data Data Last Documented VS Vital Signs Date Time Temp Pulse Resp B/P Pulse Ox O2 Delivery O2 Flow Rate FiO2 09/06/16 08:58 77 17 185/77 99 Room Air 09/06/16 04:59 98.7 Orders Complete Blood Count With Diff (09/06/16 05:17) Comprehensive Metabolic Panel (09/06/16 05:17) Lipase (09/06/16 05:17) Lactic Acid (09/06/16 05:17) Urinalysis - C+S If Indicated (09/06/16 05:17) Iv Access Insert/Monitor (09/06/16 05:17) Ecg Monitoring (09/06/16 05:17) Oximetry (09/06/16 05:17) Sodium Chlor 0.9% 1000 Ml Inj (Ns 1000 M (09/06/16 05:17) Sodium Chloride 0.9% Flush (Ns Flush) (09/06/16 05:30) Sodium Chlor 0.9% 1000 Ml Inj (Ns 1000 M (09/06/16 05:30) Prochlorperazine Inj (Compazine Inj) (09/06/16 05:30) Ct Abd/Pel W Iv Contrast(Rout) (09/06/16 06:17) Oral Contrast - Adult (09/06/16 06:23) Diatrizoate Liq ( Gastroervin Liq) (09/06/16 06:38) Iohexol 350 Inj (Omnipaque 350 Inj) (09/06/16 08:28) Piperacil-Tazo 4.5 Gm Premix (Zosyn 4.5 (09/06/16 09:30) Blood Culture (09/06/16 09:21) Chest, Single Ap (09/06/16 ) Levofloxacin 500 Mg Premix Inj (Levaquin (09/06/16 10:00) Metronidazole 500 Mg Inj (Flagyl 500 Mg (09/06/16 10:00) Sodium Chlor 0.9% 1000 Ml Inj (Ns 1000 M (09/06/16 10:00) Electrocardiogram (09/06/16 ) Troponin I (09/06/16 10:29) Admit Order (Ed Use Only) (09/06/16 10:36) Potassium Chloride (Kcl) (09/06/16 10:45) Labs Laboratory Tests Test 09/06/16 09/06/16 05:31 09:38 White Blood Count 20.2 TH/MM3 Red Blood Count 4.50 MIL/MM3 Hemoglobin 13.9 GM/DL Hematocrit 41.7 % Mean Corpuscular Volume 92.6 FL Mean Corpuscular Hemoglobin 30.9 PG Mean Corpuscular Hemoglobin 33.4 % Concent Red Cell Distribution Width 13.9 % Platelet Count 367 TH/MM3 Mean Platelet Volume 9.7 FL Neutrophils (%) (Auto) 80.1 % Lymphocytes (%) (Auto) 11.1 % Monocytes (%) (Auto) 1.9 % Eosinophils (%) (Auto) 6.4 % Basophils (%) (Auto) 0.5 % Neutrophils # (Auto) 16.2 TH/MM3 Lymphocytes # (Auto) 2.2 TH/MM3 Monocytes # (Auto) 0.4 TH/MM3 Eosinophils # (Auto) 1.3 TH/MM3 Basophils # (Auto) 0.1 TH/MM3 CBC Comment DIFF FINAL Differential Comment Sodium Level 140 MEQ/L Potassium Level 3.2 MEQ/L Chloride Level 106 MEQ/L Carbon Dioxide Level 18.5 MEQ/L Anion Gap 16 MEQ/L Blood Urea Nitrogen 8 MG/DL Creatinine 0.68 MG/DL Estimat Glomerular Filtration 88 ML/MIN Rate Random Glucose 136 MG/DL Lactic Acid Level 1.9 mmol/L Calcium Level 9.4 MG/DL Total Bilirubin 0.5 MG/DL Aspartate Amino Transf 24 U/L (AST/SGOT) Alanine Aminotransferase 36 U/L (ALT/SGPT) Alkaline Phosphatase 102 U/L Total Protein 7.4 GM/DL Albumin 4.1 GM/DL Lipase 63 U/L Urine Color LIGHT-YELLOW Urine Turbidity CLEAR Urine pH 6.0 Urine Specific [place] GREATER THAN 1.035 Urine Protein TRACE mg/dL Urine Glucose (UA) TRACE mg/dL Urine Ketones 150 mg/dL Urine Occult Blood TRACE Urine Nitrite NEG Urine Bilirubin NEG Urine Urobilinogen LESS THAN 2.0 MG/DL Urine Leukocyte Esterase NEG Urine RBC 4 /hpf Urine WBC 2 /hpf Urine Squamous Epithelial 1 /hpf Cells Urine Bacteria RARE /hpf Urine Mucus FEW /lpf Microscopic Urinalysis Comment CULT NOT INDICATED MDM Supervised Visit with MER: No Interpretation(s) Twelve-lead EKG was reviewed by me. Normal sinus rhythm, normal axis, nonspecific ST-T wave changes. Heart rate of 66 bpm. Diagnosis Primary Impression: Abdominal pain Qualified Code: R10.13 - Epigastric pain Additional Impressions: Leukocytosis Qualified Code: D72.829 - Leukocytosis, unspecified type Dehydration Ketonuria Starvation ketoacidosis Admitting Information Admitting Physician Requests: Admit Dale Garcia MD Sep 06, 2016 10:29
[2016-09-06] MEDS ORDERED: POTASSIUM CHLORIDE 20 MEQ CONTROLLED RELEASE TAB PO ONE (10:45)
[2016-09-06] MEDS ORDERED: ASPIRIN 325 MG TAB PO ONE (11:30)
[2016-09-06] MEDS ORDERED: ACETAMINOPHEN/HYDROcodone 325 MG/5 MG TAB PO PRN (11:45)
[2016-09-06] MEDS ORDERED: DEXTROSE 50% IN WATER 50 ML VIAL(D50) IV PRN (11:45)
[2016-09-06] MEDS ORDERED: GLUCAGON 1 MG/ML VIAL OTHER PRN (11:45)
[2016-09-06] MEDS ORDERED: ALBUTEROL INH PRN (12:00)
[2016-09-06] MEDS: FAMOTIDINE 20 MG/2 ML VIAL IV PUSH SCH ×2 (12:19→20:31)
[2016-09-06] MEDS: NITROGLYCERIN 2% OINT 1 GM PACKET TOPICAL SCH ×3 (12:19→23:36)
[2016-09-06] MEDS ORDERED: ONDANSETRON HCL 4 MG/2 ML VIAL IV PUSH PRN (12:30)
[2016-09-06] MEDS: ENOXAPARIN SODIUM 40 MG/0.4 ML SYRINGE SQ SCH (13:00)
[2016-09-06] MEDS: 1/2 NS + KCL 20 MEQ INJ 1,000 ML IV SCH ×2 (13:01→20:31)
[2016-09-06] MEDS: METOCLOPRAMIDE HCL 10 MG/2 ML VIAL IV PUSH PRN (14:01)
[2016-09-06] MEDS: MEPERIDINE HCL 50 MG/ML VIAL IV PUSH PRN ×2 (14:22→22:00)
--- NOTE | 2016-09-06 15:14 | HHI.HP ---
HPI Service [facility] Primary Care Physician Stu Thayer MD Admission Diagnosis leukocytosis, epigastric pain, dehydration Diagnoses: Chief Complaint: abdominal pain, intractable nausea and vomiting (Annabella Henderson) Travel History International Travel<30 Days: No Contact w/Intl Traveler <30 Da: No Traveled to Known Affected Are: No (Annabella Henderson) History of Present Illness This a 61-year-old white female with significant past medical history diabetes, arthritis, hypertension, acid reflux, diverticulitis, Lyme disease. Pt. presented with recurrent epigastric pain and intractable nausea and vomiting. Patient was recently admitted from September 02, 2016 to September 04, 2016 for same symptoms. Underwent GI workup, had EGD that show pyloric stenosis, ringed esophagus. Biopsy showed squamous mucosa without significant histologic abnormality. Patient was noted to noticed leukocytosis with eosinophilia. Patient was recommended to continue on Flagyl and Levaquin. Patient tolerated diet, there was no more nausea, no vomiting, epigastric pain was relieved. She was recommended to follow-up with GI. Patient was discharged in stable condition. Patient indicates, that she had been eating well, had returned to work yesterday. She took her second dose of Flagyl yesterday around 3 PM and right after that she started to have intractable nausea, vomiting and epigastric pain. No hematemesis. Complaining of severe pain that feels like pressure over the epigastric area, no radiation. No associated shortness of breath, she is diaphoretic. She denies any ETOH use. DrJonny workup was completed. CBC remarkable again for leukocytosis, WBC 20.2. Eosinophils 1.3, neutrophils 16.2. BMP remarkable for hypokalemia, potassium 3.2. She was noted acid, carbon dioxide 18.5. Anion gap 16. Troponin was elevated 0.22. EKG did not reveal any acute ST segment elevation. Patient denies any prior history of coronary artery disease. Indicates that she follows up regularly with Dr. Cartwright, did see him approximately a week ago and did have an EKG. Has never had a stress test or cardiac catheterization. Endorses family history coronary artery disease, father had a myocardial infarction in his 70s. Patient is very anxious, her skin is flushed. She has received nitroglycerin half an inch, aspirin. She's been given Demerol as well as Reglan. CT of the abdomen did not reveal any acute findings. Patient has allergies to codeine, Dilaudid and morphine. is at bedside also very anxious. Patient is admitted for further evaluation and treatment. (Annabella Henderson) Review of Systems Constitutional: COMPLAINS OF: Diaphoretic episodes Gastrointestinal: COMPLAINS OF: Abdominal pain, Nausea, Vomiting Psychiatric: COMPLAINS OF: Anxiety (Annabella Henderson) Past Family Social History Past Medical History DM 2 Asthma Diverticulitis HTN COPD Arthritis TIA hx of Lyme disease, affected hearing Past Surgical History Tummy alicjack Arthroscopic knee surgery Breast augmentation C section BILL and BSO Reported Medications Reported Meds & Active Scripts Active Flagyl (Metronidazole) 500 Mg Tab 500 Mg PO TID Levaquin (Levofloxacin) 500 Mg Tablet 500 Tab PO DAILY Reported Prevacid (Lansoprazole) 30 Mg Capdr 30 Mg PO DAILY Breo Ellipta Inh (Fluticasone/Vilanterol) 100-25 Mcg/Act Inh 1 Puff INH DAILY Use daily at the same time. Voltaren (Diclofenac Sodium) 100 Gm Gel..gram. Ranitidine (Ranitidine HCl) 150 Mg Tab 150 Mg PO DAILY Proair Respiclick Inh (Albuterol Sulfate) 90 Mcg/Act Aerp 1 Puff INH Q4H PRN Multi-Day Vitamins (Multiple Vitamin) 1 Tab Tab Mometasone Topical (Mometasone Furoate) 0.1 % Lotn 1 Applic TOPICAL DAILY Hydrocodone-Acetaminophen 5-325 mg Tab 1 Tab PO Q6H PRN Fiber Choice Chewable Tablet (Inulin/Sorbitol) 1.5 Gm Tab.chew Delestrogen Valerate Inj (Estradiol Valerate) 40 Mg/Ml Inj Benicar (Olmesartan) 20 Mg Tab 20 Mg PO DAILY Aspirin 81 (Aspirin) 81 Mg Tabdr 81 Mg PO DAILY Yamilet-D 12 Hour Allergy (Fexofenadine-Pseudoephedrine ER 12 HR) 60-120 Mg Olivia 1 Tab PO BID Acarbose 25 Mg Tab 25 Mg PO TID Take with first bite of meal. (Annabella Henderson) Allergies: Coded Allergies: Bumble Bee (Verified Allergy, Severe, Hives, 09/06/16) Morphine (Verified Allergy, Severe, Hives, 09/06/16) Penicillin (Verified Allergy, Severe, Shortness of Breath, 09/06/16) Prednisone (Verified Allergy, Severe, EXERBATION OF DIVERTICULIS, 09/06/16) Dilaudid (Verified Allergy, Intermediate, ITCHING, 09/06/16) Protonix (Verified Allergy, Intermediate, Hives, 09/06/16) Codeine (Verified Allergy, Mild, Hallucinations, 09/06/16) Sulfa (Verified Allergy, Mild, Hives, 09/06/16) Active Ordered Medications Inpatient Medications Acetaminophen/ Hydrocodone Bitart ([place] 5-325 Mg) 1 tab Q6H PRN PO PAIN SCALE 1 TO 10; Start 09/06/16 at 11:45 Aspirin (Aspirin) 325 mg ONCE ONCE PO ; Start 09/06/16 at 11:30; Stop 09/06/16 at 13:45; Status DC Carvedilol (Coreg) 3.125 mg Q12HR PO ; Start 09/06/16 at 21:00 Dextrose (D50w (Vial) Inj) 50 ml UNSCH PRN IV HYPOGLYCEMIA-SEE COMMENTS; Start 09/06/16 at 11:45 Enoxaparin Sodium (Lovenox Inj) 40 mg Q24H SQ Last administered on 09/06/16 13 :00; Start 09/06/16 at 12:00 Famotidine (Pepcid Inj) 20 mg Q12HR IV PUSH Last administered on 09/06/16 12: 19; Start 09/06/16 at 11:30 Fluticasone/ Vilanterol (Breo Ellipta 100-25 Inh) 1 puff DAILY INH ; Start 09/07 at 09:00 Glucagon (Glucagon Inj) 1 mg UNSCH PRN OTHER HYPOGLYCEMIA-SEE COMMENTS; Start 09/06/16 at 11:45 Insulin Aspart (NovoLOG SUPPLEMENTAL SCALE) 1 ACHS SLIDING SCALE SQ ; Start at 16:00 Levofloxacin/ Dextrose 100 ml @ 100 mls/hr ONCE ONCE IV Last administered on 09/06/16 11:19; Start 09/06/16 at 10:00; Stop 09/06/16 at 13:45; Status DC Losartan Potassium (Cozaar) 50 mg DAILY PO ; Start 09/07/16 at 09:00 Meperidine HCl (Demerol Inj) 50 mg Q6H PRN IV PUSH pain 5 to 10 Last administered on 09/06/16 14:22; Start 09/06/16 at 13:45 Metoclopramide HCl (Reglan Inj) 10 mg Q8H PRN IV PUSH n/v Last administered on 09/06/16 14:01; Start 09/06/16 at 13:45 Metronidazole 100 ml @ 100 mls/hr ONCE ONCE IV Last administered on 10:08; Start 09/06/16 at 10:00; Stop 09/06/16 at 13:45; Status DC Nitroglycerin 0.5 inch 0.5 inch Q6HR TOPICAL Last administered on 09/06/16 12: 19; Start 09/06/16 at 12:00 Ondansetron HCl (Zofran Inj) 4 mg Q6HR PRN IV PUSH n/v Last administered on 13:01; Start 09/06/16 at 12:30 Patient Own Medication PT OWN MED: [place]... Q4H PRN INH SHORTNESS OF BREATH; Start 09/06/16 at 12:00; Status Hold Piperacillin Sod/ Tazobactam Sod 100 ml @ 200 mls/hr ONCE ONCE IV ; Start at 09:30; Stop 09/06/16 at 10:00; Status DC Potassium Chloride/Sodium Chloride (1/2 NS + KCl 20 Meq Inj) 1,000 ml @ 100 mls /hr Q10H IV Last administered on 09/06/16 13:01; Start 09/06/16 at 11:45 Potassium Chloride (KCl) 40 meq ONCE ONCE PO Last administered on 09/06/16 11 :19; Start 09/06/16 at 10:45; Stop 09/06/16 at 13:45; Status DC Prochlorperazine Edisylate 10 mg 10 mg ONCE ONCE IV PUSH Last administered on 09/06/16 05:35; Start 09/06/16 at 05:30; Stop 09/06/16 at 05:31; Status DC Sodium Chloride (NS 1000 ml Inj) 1,000 ml @ 999 mls/hr BOLUS ONCE IV Last administered on 09/06/16 10:56; Start 09/06/16 at 10:00; Stop 09/06/16 at 13:45 ; Status DC Sodium Chloride (NS Flush) 2 ml UNSCH PRN IV FLUSH FLUSH AFTER USING IV ACCESS ; Start 09/06/16 at 05:30 Family History Father at 75 secondary to heart attack Mother at 86 atrial fibrillation chronic kidney disease hypertension and hyperlipidemia Social History Patient lives at home with Indicates that she does drink approximately 2 cocktails 2-3 times a week when she goes out with her . Denies tobacco use quit smoking in 2003 prior to that smoked from age 12 Smokes marijuana occasionally. (Annabella Henderson) Physical Exam Vital Signs Vital Signs Date Time Temp Pulse Resp B/P Pulse Ox O2 Delivery O2 Flow Rate FiO2 09/06/16 12:47 59 16 152/66 98 Room Air 09/06/16 08:58 77 17 185/77 99 Room Air 09/06/16 07:04 80 16 212/80 100 Room Air 09/06/16 06:37 66 18 195/116 100 Room Air 09/06/16 06:10 100 Room Air 09/06/16 05:04 18 09/06/16 04:59 98.7 60 18 215/87 100 Physical Exam GENERAL: This is a well-nourished, well-developed patient, very anxious, diaphoretic. SKIN: Diaphoretic, skin is flushed. HEAD: Atraumatic. Normocephalic. No temporal or scalp tenderness. EYES: Pupils equal round and reactive. Extraocular motions intact. No scleral icterus. No injection or drainage. ENT: Nose without bleeding, purulent drainage or septal hematoma. Throat without erythema, tonsillar hypertrophy or exudate. Uvula midline. Airway patent. NECK: Trachea midline. No JVD or lymphadenopathy. Supple, nontender, no meningeal signs. CARDIOVASCULAR: Regular rate and rhythm without murmurs, gallops, or rubs. RESPIRATORY: Clear to auscultation. Breath sounds equal bilaterally. No wheezes , rales, or rhonchi. GASTROINTESTINAL: Abdomen soft, epigastric tenderness, nondistended. No hepato- splenomegaly, or palpable masses. No guarding. MUSCULOSKELETAL: Extremities without clubbing, cyanosis, or edema. No joint tenderness, effusion, or edema noted. No calf tenderness. Negative Homans sign bilaterally. NEUROLOGICAL: Awake and alert. Cranial nerves II through XII intact. Motor and sensory grossly within normal limits. Five out of 5 muscle strength in all muscle groups. Normal speech. Laboratory Laboratory Tests Test 09/06/16 09/06/16 09/06/16 05:31 09:38 10:45 White Blood Count 20.2 Red Blood Count 4.50 Hemoglobin 13.9 Hematocrit 41.7 Mean Corpuscular Volume 92.6 Mean Corpuscular Hemoglobin 30.9 Mean Corpuscular Hemoglobin 33.4 Concent Red Cell Distribution Width 13.9 Platelet Count 367 Mean Platelet Volume 9.7 Neutrophils (%) (Auto) 80.1 Lymphocytes (%) (Auto) 11.1 Monocytes (%) (Auto) 1.9 Eosinophils (%) (Auto) 6.4 Basophils (%) (Auto) 0.5 Neutrophils # (Auto) 16.2 Lymphocytes # (Auto) 2.2 Monocytes # (Auto) 0.4 Eosinophils # (Auto) 1.3 Basophils # (Auto) 0.1 CBC Comment DIFF FINAL Differential Comment Sodium Level 140 Potassium Level 3.2 Chloride Level 106 Carbon Dioxide Level 18.5 Anion Gap 16 Blood Urea Nitrogen 8 Creatinine 0.68 Estimat Glomerular Filtration 88 Rate Random Glucose 136 Lactic Acid Level 1.9 Calcium Level 9.4 Total Bilirubin 0.5 Aspartate Amino Transf 24 (AST/SGOT) Alanine Aminotransferase 36 (ALT/SGPT) Alkaline Phosphatase 102 Total Protein 7.4 Albumin 4.1 Lipase 63 Urine Color LIGHT-YELLOW Urine Turbidity CLEAR Urine pH 6.0 Urine Specific [place] GREATER THAN 1.035 Urine Protein TRACE Urine Glucose (UA) TRACE Urine Ketones 150 Urine Occult Blood TRACE Urine Nitrite NEG Urine Bilirubin NEG Urine Urobilinogen LESS THAN 2.0 Urine Leukocyte Esterase NEG Urine RBC 4 Urine WBC 2 Urine Squamous Epithelial 1 Cells Urine Bacteria RARE Urine Mucus FEW Microscopic Urinalysis Comment CULT NOT INDICATED Troponin I 0.22 Date/Time Procedure Status Source Growth 09/06/16 09:38 Aerobic Blood Culture Received Blood Peripheral Pending 09/06/16 09:38 Anaerobic Blood Culture Received Blood Peripheral Pending (Annabella Henderson) Result Diagram: 09/06/1653009/06/16530 Imaging Last Impressions Abdomen/Pelvis CT 09/06/1617 Signed Impressions: Service Date/Time: Tuesday, September 06, 2016 08:25 - CONCLUSION: Uncomplicated colonic diverticulosis. Tiny stable subcentimeter cyst within the anterior aspect of the liver. 7 mm simple cyst within the medial aspect of the upper pole of the right kidney. Reji Dodd MD Chest X-Ray 09/06/16 0000 Signed Impressions: Service Date/Time: Tuesday, September 06, 2016 09:50 - CONCLUSION: 1. No acute cardiopulmonary disease. Sanjeev Hector MD (Annabella Henderson) Assessment and Plan Problem List: (1) Abdominal pain (2) Dehydration (3) Intractable nausea and vomiting (4) Ketonuria (5) Leukocytosis (6) DM (diabetes mellitus) (7) HTN (hypertension) (8) GERD (gastroesophageal reflux disease) (9) COPD (chronic obstructive pulmonary disease) Assessment and Plan Admit to Dr. Chavira 61-year-old white female presented to the emergency room with complaint of recurrent abdominal pain with intermittent nausea vomiting. Was recently admitted for same symptoms, underwent GI workup without significant findings. She was noted with leukocytosis and eosinophilia. Was discharged on Flagyl and Levaquin. Intractable nausea vomiting, epigastric pain, etiology unclear. Dehydration, ketonuria, acidosis Leukocytosis, etiology unclear. GERD -Clear liquid diet -IV fluids -Patient is allergic to morphine and Dilaudid, continue with Demerol for pain -Continue antiemetics when necessary Consult gastroenterology for evaluation Pepcid 20 mg IV twice a day -Hold off on antibiotics at this time. -BMP in the morning -MRA SMA of the abdomen pending Elevated troponin with epigastric discomfort, rule out acute coronary syndrome. -Continue with serial troponin Continue with nitroglycerin 0.5 inch every 6 -Continue with Lovenox 40 mg subcutaneous daily -Consul Dr. Cartwright for evaluation. Hypertension, uncontrolled, likely secondary to anxiety and pain, now improving. Resume home medications Type 2 diabetes Accu-Cheks before meals and at bedtime with insulin therapy COPD stable, Monitor sats DuoNeb's when necessary for wheezing Home medications reviewed, initiated as indicated SCDs for DVT prophylaxis Pepcid for GI prophylaxis Plan of care has been discussed with the patient and her , attending and registered nurse. Further management of the patient will be dependent on the hospital course This patient was seen by myself and Dr. Chavira, this H&P is written on his behalf (Annabella Henderson) Assessment and Plan pt is seen & examined d/w PT d/w Annabella agree w above GI consult appreciated MRA abd done [p] No CP/trop elevated cont current tx will f/u (Beverly Chavira MD) Physician Certification 2 Midnight Certification Type: Admission for Inpatient Services Order for Inpatient Services The services are ordered in accordance with Medicare regulations or non- Medicare payer requirements, as applicable. In the case of services not specified as inpatient-only, they are appropriately provided as inpatient services in accordance with the 2-midnight benchmark. Estimated LOS (days): 2 2 days is the estimated time the patient will need to remain in the hospital, assuming treatment plan goals are met and no additional complications. Post-Hospital Plan: Home (Annabella Henderson) Problem Qualifiers (1) Abdominal pain: Qualified Code: R10.13 - Epigastric pain (2) Intractable nausea and vomiting: Qualified Code: R11.2 - Intractable vomiting with nausea, unspecified vomiting type (3) Leukocytosis: Qualified Code: D72.829 - Leukocytosis, unspecified type (4) DM (diabetes mellitus): Qualified Code: E11.9 - Type 2 diabetes mellitus without complication, unspecified shelter insulin use status (5) HTN (hypertension): Qualified Code: I10 - Essential hypertension (6) GERD (gastroesophageal reflux disease): Qualified Code: K21.9 - Gastroesophageal reflux disease without esophagitis (7) COPD (chronic obstructive pulmonary disease): Qualified Code: J44.9 - Chronic obstructive pulmonary disease, unspecified COPD type Annaeblla Henderson Sep 06, 2016 15:14 Beverly Chavira MD Sep 06, 2016 18:33
[2016-09-06] MEDS: INSULIN ASPART SUPPLEMENTAL SCALE SQ SCH ×2 (16:00→20:31)
[2016-09-06] MEDS ORDERED: GADODIAMIDE PF 287 MG/ML 10 ML VIAL (for RAD MRI) IV ONE (16:58)
--- NOTE | 2016-09-06 17:21 | ECHRPT ---
Indication: Chest pain, unspecified CONCLUSIONS Normal left ventricular size. Wall thickness is normal. The left ventricular systolic function is hyperdynamic with an estimated ejection fraction in the ra nge of 65- 70%. No regional wall motion abnormalities are present. Left ventricular diastolic function parameters are normal. BP: 185 / 77 HR: 77 Rhythm: Sinus MEASUREMENTS (Male / Female) Normal Values Technical Quality:Poor 2D ECHO LV Diastolic Diameter PLAX 4.0 cm 4.2 - 5.9 / 3.9 - 5.3 cm LV Systolic Diameter PLAX 2.8 cm IVS Diastolic Thickness 0.9 cm 0.6 - 1.0 / 0.6 - 0.9 cm LVPW Diastolic Thickness 0.9 cm 0.6 - 1.0 / 0.6 - 0.9 cm LV Relative Wall Thickness 0.5 LVOT Diameter 2.0 cm Aortic Root Diameter 2.8 cm LA Systolic Diameter LX 3.0 cm 3.0 - 4.0 / 2.7 - 3.8 cm DOPPLER AV Peak Velocity 114.0 cm/s AV Peak Gradient 5.2 mmHg AV Mean Gradient 3.0 mmHg AV Velocity Time Integral 26.5 cm LVOT Peak Velocity 84.6 cm/s LVOT Peak Gradient 2.9 mmHg LVOT Velocity Time Integral 18.0 cm LVOT Cardiac Index 2988.1 cm/minm AV Area Cont Eq vti 2.1 cm AV Area Cont Eq pk 2.3 cm Mitral E Point Velocity 141.0 cm/s Mitral A Point Velocity 104.0 cm/s Mitral E to A Ratio 1.4 LV E' Lateral Velocity 10.4 cm/s Mitral E to LV E' Lateral Ratio 13.6 LV E' Septal Velocity 9.8 cm/s Mitral E to LV E' Septal Ratio 14.3 TR Peak Velocity 235.0 cm/s TR Peak Gradient 22.0 mmHg PV Peak Velocity 94.0 cm/s PV Peak Gradient 3.5 mmHg FINDINGS LEFT VENTRICLE Normal left ventricular size. Wall thickness is normal. The left ventricular systolic function is hyperdynamic with an estimated ejection fraction in the ra nge of 65- 70%. No regional wall motion abnormalities are present. Left ventricular diastolic function parameters are normal. RIGHT VENTRICLE Normal right ventricular size and systolic function. LEFT ATRIUM The left atrial size is normal. RIGHT ATRIUM The right atrial size is normal. ATRIAL SEPTUM Normal atrial septal thickness without atrial level shunting by limited color doppler interrogation. AORTA The aortic root and proximal ascending aorta are normal in size on limited imaging. MITRAL VALVE Structurally normal mitral valve. No mitral valve stenosis but with trace mitral regurgitation. AORTIC VALVE Trileaflet aortic valve. No aortic valve stenosis or regurgitation. TRICUSPID VALVE Structurally normal tricuspid valve. No tricuspid valve stenosis but with trace tricuspid regurgitat ion. Normal estimated pulmonary pressures. PULMONARY VALVE No pulmonary valve regurgitation or stenosis. VESSELS The inferior vena cava (IVC) is normal in size. PERICARDIUM No pericardial effusion. Salas Vaughn MD, FACC, [facility] [place] (Electronically Signed) Final Date:06 September 2016 17:19
--- NOTE | 2016-09-06 17:34 | PD.CONS ---
GI Consult GI Consult SEE FORMAL GI CONSULTATION ALSO ([id number]) ASSESSMENT/PLAN: 1. Epigastric pain- CT/U/S and EGD not helpful 2. N/V 2. elevated WBC 4. GB wall polyp 5. elevated troponin PLAN: 1. MRA to r/o intestinal angina 2. bowel rest 3. antibiotics 4. Consider surgical eval if pain worsens 5. Cont H2 dom 6. ?HIDA scan It was a pleasure seeing Nicole Cabrera Thank you for this consult. Entered by: Armen Farrar MD Sep 06, 2016 17:34
[2016-09-06] MEDS ORDERED: KETOROLAC TROMETHAMINE 60 MG/2 ML (IM) VIAL IM ONE (18:45)
[2016-09-06] MEDS: CARVEDILOL 3.125 MG TAB PO SCH (20:31)
--- NOTE | 2016-09-06 20:31 | MB ---
cc: KYREE ZHENG MD DATE OF CONSULTATION: 09/06/2016. REASON FOR CONSULTATION: Elevated troponin. HISTORY OF PRESENT ILLNESS: Mr. Cabrera is a 61-year-old patient of my partner, Dr. Cartwright. The patient reports that she has had intractable nausea and vomiting which has caused some lower epigastric pain. She denies any chest pain. She apparently was recently discharged for essentially the same thing several days ago. The patient reports that she has had problems with p.o. antibiotics in the past and has had nausea and vomiting precipitated by the Flagyl and Levaquin that she was taking. She reports that she is very active and has not had any chest pain with strenuous activity. ALLERGIES: 1. CHECO INHIBITOR. 2. CODEINE. 3. DILAUDID. 4. MORPHINE. 5. PENICILLIN. 6. SULFA. PAST MEDICAL HISTORY: Her past medical history is significant for: 1. Anemia. 2. Asthma. 3. Basal cell carcinoma. 4. Carotid artery stenosis. 5. COPD. 6. Diabetes. 7. Fatty liver disease. 8. Lyme disease. 9. Osteoarthritis. 10. Palpitations. 11. TIA. PAST SURGICAL HISTORY: 1. Breast augmentation. 2. Facelift. 3. Hysterectomy. 4. A tummy tuck. SOCIAL HISTORY: The patient does admit to occasional alcohol. OUTPATIENT MEDICATIONS: 1. Prevacid. 2. Breo. 3. Alimta. 4. Voltaren. 5. Ranitidine. 6. Albuterol. 7. A multivitamin. 8. Hydrocodone. 9. Benicar. 10. Aspirin. 11. Yamilet. REVIEW OF SYSTEMS: Except for what is mentioned in the history of present illness, all twelve systems are negative. FAMILY HISTORY: Noncontributory. PHYSICAL EXAMINATION: VITAL SIGNS: On physical examination, her current blood pressure is 125/62. At 7:00 a.m., it was 212/80. GENERAL: In general, she is a well-appearing female who is in no apparent distress. NECK: Her neck is free from jugular venous distention. LUNGS: The lungs are bilaterally clear to auscultation. CARDIOVASCULAR: On cardiovascular examination, she has a normal S1 and S2. I do not appreciate any murmurs, rubs or gallops. ABDOMEN: The abdomen is soft. EXTREMITIES: The extremities are free from edema. LABORATORY DATA: Lab values are significant for a white count of 20.2. The potassium is 3.3. The troponin I is 0.22. EKGS: EKG shows normal sinus rhythm and does not show any acute S-T-T wave changes. IMPRESSION: 1. Elevated troponin -- this is almost certainly secondary to her blood pressure spikes. She has remained essentially asymptomatic from a cardiac perspective. I did discuss that we would at least like to check an echocardiogram, which she was agreeable to. I also expressed that I thought it would be a good idea to consider a nuclear stress test at some point. The patient essentially declined the stress test. 2. Hypertension -- the patient has had some blood pressure swings that were correlated to her vomiting. At this point, I would continue her usual outpatient medications and observe at this point. 4. Nausea and vomiting -- this will be managed by the primary team. Kyree Zheng M.D. JUDE/ELEN /5:02 PM /8:20 PM
--- NOTE | 2016-09-06 21:19 | MB ---
cc: ARMEN MCDOWELL MD, DONATO R. M.D. ANWER,ABDI Frye MD DATE OF CONSULTATION 09/06/16 DATE OF 1955 REASON FOR CONSULTATION I was asked to see the patient at the request of Dr. Chavira for evaluation of epigastric abdominal pain and nausea and vomiting. HISTORY OF PRESENT ILLNESS The patient is a pleasant 61 year old white female who was seen by Dr. Bland in the office for similar complaints. This appears to have been going on for a couple of months and Dr. Bland planned on working this up as an outpatient. Unfortunately, her situation worsened and she was admitted to the hospital earlier this week on September 02. My partner, Dr. Montero, saw her and he performed upper endoscopy on her which revealed ringed esophagus - biopsy was unremarkable. There is also a pyloric stenosis which is easily dilated with the gastroscope but nothing significant to explain her symptoms. An ultrasound done at the time also revealed gallbladder wall polyp but no gallbladder wall thickening. Her lab work at the time revealed WBC count 20,700 and it slowly dropped to 14.9 and her LFTs and lipase at that time were normal. She was placed on antibiotics and she improved tremendously and was then discharged to follow with Dr. Bland as an outpatient. The patient went home and she went to work and after her second dose of Flagyl, she had similar symptoms namely a severe epigastric pain which has no rhyme or reason. She had several episodes of nausea and vomiting and this morning at 4:30am her did call me and I told him to bring her to the emergency room. In the emergency room, a CT scan of the abdomen and pelvis was repeated and was unremarkable. Her white count was elevated again. She is no vomiting of blood and there is no passage of blood from below. No dysphagia or early satiety. No GERD issues. No constipation. PAST MEDICAL HISTORY 1. Gastric ulcer in 2008. 2. Diabetes mellitus 3. Asthma 4. Arthritis, 5. COPD, 6. Hypertension, 7. Diverticular disease, 8. Possible TIA 9. Lyme disease. 10. She had chronic leukocytosis and apparently hematology workup was unremarkable. PAST SURGICAL HISTORY 1. , 2. Knee surgery, 3. Breast augmentation 4. Hysterectomy or bilateral salpingo-oophorectomy 5. Tummy tuck ALLERGIES Multiple including CODEINE MORPHINE PENICILLIN HYDROMORPHONE PREDNISONE SULFA PRODUCTS PANTOPRAZOLE FAMILY HISTORY Not sigmoidoscopy for any colon cancer or colon polyps. SOCIAL HISTORY She stopped smoking in 2002 or 2003. Should drinks alcohol two or three times a week REVIEW OF SYSTEMS No weight loss, fever or chills. CARDIOPULMONARY: No chest pain, palpitation, wheezing or shortness of breath. GASTROINTESTINAL: Please see above Otherwise unremarkable ten-point review of systems. MEDICATIONS On this hospitalization, 1. Aspirin 2. Breo elipta 3. Cozaar. 4. Coreg. 5. Demerol. 6. Reglan. 7. Zofran 8. Nitroglycerine ointment 9. Lovenox 10. Potassium 11. Hydrocodone. 12. Dextrose. 13. Glucagon. 14. Famotidine. PHYSICAL EXAMINATION VITAL SIGNS: Blood pressure at this time 130/63, pulse 60, respiratory rate 16. She is afebrile at 98.7. GENERAL: She is a slightly overweight white female resting comfortably, very tired resting comfortably at this time. She did receive pain medications. HEENT: Her pupils equal, round, react to light. No obvious scleral icterus. Oropharynx - no dental caries. no kellen lesion. Hearing was intact. NECK: Supple. No thyromegaly or lymphadenopathy. LUNGS: Clear to auscultation and percussion HEART: Regular rhythm. No gross murmurs are heard. ABDOMEN: Soft. There is epigastric tenderness but no rebound tenderness, organomegaly, masses. No Tenorio's sign. Bowel sounds positive in all quadrants. There is no guarding or hernias. EXTREMITIES: No cyanosis, clubbing or edema. NEUROLOGIC: Grossly intact. No gross sensory deficits. She is alert and oriented times three. I did not assess her gait. SKIN: Warm and moist. RECTAL: I did not do a rectal exam on her. LABORATORY DATA Today, white blood cell count once elevated at 20,200, hemoglobin 15.9, hematocrit 41.7, MCV 92.6. Chemistries revealed a lipase 63, is normal. Troponin elevated 0.22, alk phos 102 normal, SGPT of 36 which is normal, SGOT 24, total bilirubin 0.5, potassium 3.2, BUN 8, creatinine 0.68. of 0.68. Lactic acid 1.9. Blood sugar 136 was elevated. IMAGING STUDIES Chest x-ray did not show any acute cardiopulmonary disease. CT scan abdomen and pelvis done today revealed uncomplicated chronic diverticulosis, possible cyst in the liver, a cyst in the medial aspect of the kidney otherwise exam was unremarkable. IMPRESSION 1. Epigastric pain. It is quite intense. It is similar to when she what she would have for some time but only worse now. Etiology is unclear. The workup she she had had has been unremarkable. She did have a gallbladder wall polyp. Whether this is playing a role in the situation is unclear. The patient apparently may have a history of some carotid stenosis and you worry about intestinal angina playing role in the situation despite the negative lactic acid. It is important to consider MRA - see below. We also talked about gallbladder disease, namely, acalculous cholecystitis, although nothing was seen On ultrasound and CAT scan - see below 2. Nausea and vomiting, more like reactive to above. I do not think it is related to her pyloric stenosis. She may have underlying gastroparesis. 3. Elevated white blood cell count - last time when she was on IV antibiotics this cam down nicely. 4. Gallbladder wall polyp - as mentioned above, this does not usually cause problems like this. It may lead to some form of chronic cholecystitis but nothing acute. 5. Elevated troponin - whether this is reactive to the situation now or cardiac problem is unclear. Apparently, cardiology has seen the patient and is monitoring her very closely in this regard. RECOMMENDATIONS 1. MRA to rule out intestinal angina that is causing this problem. 2. Bowel rest 3. Antibiotics. 4. If her abdominal pain worsens, please consult surgery. 5. We debated whether we should proceed with a HIDA scan or not. Unfortunately, CCK is not available at present (national shortage). However, HIDA scan may be helpful to rule out acute cholecystitis, but it will not help if this is chronic cholecystitis. We will wait MRA before we make further recommendations in this regard. 6. Continue H2 dom. Armen Mcdowell MD SP/ /5:43 PM /8:53 PM LUCIEN
--- NOTE | 2016-09-06 22:02 | RADRPT ---
EXAM DATE/TIME: 09/06/2016 15:54 [facility] COMPARISON: No previous studies available for comparison. INDICATIONS : Abdominal pain. CONTRAST: 30 cc Omniscan (gadodiamide) IV MEDICAL HISTORY : Hypertension. Diabetes mellitus type 2. SURGICAL HISTORY : Hysterectomy. section. Breast implants, tummy tuck ENCOUNTER: Initial ACUITY: 1 day PAIN SCORE: 5/10 LOCATION: Abdomen. TECHNIQUE: Bolus infused MR angiography was performed with multiplanar, sliding thin slab and 3-D reconstruction . FINDINGS: There is no evidence of abdominal aortic aneurysm. The celiac and superior mesenteric arteries are patent. The inferior mesenteric artery origin is visu alized. The renal artery origins are patent bilaterally. The liver and spleen are free of focal defects. The pancreas demonstrates normal contour without iza dence of mass or ductal dilatation. The adrenal glands demonstrate no abnormality. The kidneys demons trate no hydronephrosis or mass. No free fluid or abdominal masses are identified. No para-aortic balbina nopathy is seen. CONCLUSION: Abdominal MRA within normal limits. Kevan Farmer MD on September 06, 2016 at 21:57 Board Certified Radiologist. This report was verified electronically.
--- NOTE | 2016-09-06 22:19 | EKG ---
Date Performed: 09/06/2016 Time Performed: 10:33:10 PTAGE: 61 years EKG: Sinus rhythm NORMAL ECG PREVIOUS TRACING : 09/02/2016 07.04 DOCTOR: Pastor Salas Interpretating Date/Time 09/06/2016 22:18:10
[2016-09-07] VITALS (8 sets, daily range): BP systolic 123–189; BP diastolic 58–84; PULSE 50–59; RESP 16–24; TEMP 97.8–98.6; O2SAT 98–100
[2016-09-07 04:40] LABS: HEMATOCRIT 31.2 % (35.0-46.0); MEAN CELL VOLUME 93.7 FL (80.0-100.0); MEAN CORPUSCULAR HEMOGLOBIN 30.9 PG (27.0-34.0); PLATELET COUNT 275 TH/MM3 (150-450); RED BLOOD COUNT 3.33 MIL/MM3 (4.00-5.30); RED CELL DISTRIBUTION WIDTH 13.8 % (11.6-17.2); REVIEW FLAG FINAL; WHITE BLOOD COUNT 21.8 TH/MM3 (4.0-11.0)
[2016-09-07] MEDS: NITROGLYCERIN 2% OINT 1 GM PACKET TOPICAL SCH ×4 (05:10→23:39)
[2016-09-07 05:13] LABS: HDL CHOLESTEROL 39.5 MG/DL (40.0-60.0); POTASSIUM 3.4 MEQ/L (3.5-5.1)
[2016-09-07] MEDS: INSULIN ASPART SUPPLEMENTAL SCALE SQ SCH ×4 (06:06→20:59)
[2016-09-07] MEDS: CARVEDILOL 3.125 MG TAB PO SCH ×2 (08:43→20:58)
[2016-09-07] MEDS: LOSARTAN 50 MG TAB PO SCH (08:43)
[2016-09-07] MEDS: 1/2 NS + KCL 20 MEQ INJ 1,000 ML IV SCH ×2 (08:43→17:03)
[2016-09-07] MEDS: ASPIRIN 325 MG TAB PO SCH (08:44)
[2016-09-07] MEDS: FLUTICASONE 100 MCG/VILANTEROL 25 MCG INHALER INH SCH (08:44)
[2016-09-07] MEDS: FAMOTIDINE 20 MG/2 ML VIAL IV PUSH SCH ×2 (08:44→20:58)
[2016-09-07] MEDS: MEPERIDINE HCL 50 MG/ML VIAL IV PUSH PRN ×2 (10:10→20:59)
[2016-09-07] MEDS ORDERED: POTASSIUM CHLOR 10 MEQ PREMIX 100 ML IV ONE (10:15)
--- NOTE | 2016-09-07 10:16 | HHI.PR ---
Subjective Remarks still with mod epigastric pain ate some clear liquid diet but immediately vomited no sob BP elevated at bsd, angry, wants to make sure the GI doc comes back to "fix her" attempted to update on study findings, questions answered. they both want a surgery consult Objective Objective Results - Vital Signs Date Time Temp Pulse Resp B/P Pulse Ox O2 Delivery O2 Flow Rate FiO2 09/07/16 08:00 98.4 54 18 189/74 98 09/07/16 07:00 54 09/07/16 04:00 97.8 57 18 154/64 99 09/07/16 00:00 98.4 59 18 123/58 98 09/06/16 23:27 20 09/06/16 23:00 53 09/06/16 20:49 20 09/06/16 20:00 56 09/06/16 20:00 98.6 56 20 137/63 100 09/06/16 17:39 60 16 130/63 100 Room Air 09/06/16 15:27 70 14 125/62 100 Room Air 09/06/16 12:47 59 16 152/66 98 Room Air I/O 09/06/16 09/06/16 09/06/16 09/07/16 09/07/16 09/07/16 07:00 15:00 23:00 07:00 15:00 23:00 Intake Total 306 ml 639 ml Balance 306 ml 639 ml Intake IV Total 306 ml 639 ml # Voids 1 # Bowel Movements 1 Result Diagram: 09/07/16 0345 09/07/16 0345 Imaging Last Impressions Abdomen/Pelvis CT 09/06/16 0617 Signed Impressions: Service Date/Time: Tuesday, September 06, 2016 08:25 - CONCLUSION: Uncomplicated colonic diverticulosis. Tiny stable subcentimeter cyst within the anterior aspect of the liver. 7 mm simple cyst within the medial aspect of the upper pole of the right kidney. Reji Dodd MD Chest X-Ray 09/06/16 0000 Signed Impressions: Service Date/Time: Tuesday, September 06, 2016 09:50 - CONCLUSION: 1. No acute cardiopulmonary disease. Sanjeev Hector MD Other Results Laboratory Tests Test 09/06/16 09/06/16 09/06/16 09/07/16 10:45 18:00 19:43 03:45 Troponin I 0.22 0.13 Nasal Screen MRSA (PCR) MRSA NOT DETECTED White Blood Count 21.8 Red Blood Count 3.33 Hemoglobin 10.3 Hematocrit 31.2 Mean Corpuscular Volume 93.7 Mean Corpuscular Hemoglobin 30.9 Mean Corpuscular Hemoglobin 33.0 Concent Red Cell Distribution Width 13.8 Platelet Count 275 Mean Platelet Volume 9.4 Sodium Level 139 Potassium Level 3.4 Chloride Level 108 Carbon Dioxide Level 21.0 Anion Gap 10 Blood Urea Nitrogen 7 Creatinine 0.69 Estimat Glomerular Filtration 86 Rate Random Glucose 85 Calcium Level 7.5 Triglycerides Level 65 Cholesterol Level 133 LDL Cholesterol 81 HDL Cholesterol 39.5 Cholesterol/HDL Ratio 3.36 Date/Time Procedure Status Source Growth 09/06/16 09:38 Aerobic Blood Culture Received Blood Peripheral Pending 09/06/16 09:38 Anaerobic Blood Culture Received Blood Peripheral Pending ROS General: No: Fatigue, Weakness HEENT: No: Sore Throat, Dysphagia Cardiac: No: Chest Pain, Edema, Palpitations Pulmonary: No: Cough, SOB, Wheezing GI: Abdominal Pain, N/V /[employer]: No: Dysuria, Urgency Neuro/MS: No: Lightheaded, Confusion Psych: Anxiety, No: Depression Skin: No: Itching, Rash Physical Exam Physical Exam GENERAL: This is a well-nourished, well-developed patient, very anxious, diaphoretic. SKIN: Diaphoretic, skin is flushed. HEAD: Atraumatic. Normocephalic. No temporal or scalp tenderness. EYES: Pupils equal round and reactive. Extraocular motions intact. No scleral icterus. No injection or drainage. ENT: Nose without bleeding, purulent drainage or septal hematoma. Throat without erythema, tonsillar hypertrophy or exudate. Uvula midline. Airway patent. NECK: Trachea midline. No JVD or lymphadenopathy. Supple, nontender, no meningeal signs. CARDIOVASCULAR: Regular rate and rhythm without murmurs, gallops, or rubs. RESPIRATORY: Clear to auscultation. Breath sounds equal bilaterally. No wheezes , rales, or rhonchi. GASTROINTESTINAL: Abdomen soft, epigastric tenderness, nondistended. No hepato- splenomegaly, or palpable masses. No guarding. MUSCULOSKELETAL: Extremities without clubbing, cyanosis, or edema. No joint tenderness, effusion, or edema noted. No calf tenderness. Negative Homans sign bilaterally. NEUROLOGICAL: Awake and alert. Cranial nerves II through XII intact. Motor and sensory grossly within normal limits. Five out of 5 muscle strength in all muscle groups. Normal speech. Urinary Catheter: No Vascular Central Line Catheter: No A/P Diagnosis: (1) Abdominal pain (2) Dehydration (3) Intractable nausea and vomiting (4) Ketonuria (5) Leukocytosis (6) DM (diabetes mellitus) (7) HTN (hypertension) (8) GERD (gastroesophageal reflux disease) (9) COPD (chronic obstructive pulmonary disease) Assessment and Plan 61-year-old white female presented to the emergency room with complaint of recurrent abdominal pain with intermittent nausea vomiting. Was recently admitted for same symptoms, underwent GI workup without significant findings. She was noted with leukocytosis and eosinophilia. Was discharged on Flagyl and Levaquin. Intractable nausea vomiting, epigastric pain, etiology unclear. Dehydration, ketonuria, acidosis Leukocytosis, etiology unclear. GERD -labs reviewed, acidosis resolved -Clear liquid diet -IV fluids -replace K -Patient is allergic to morphine and Dilaudid, continue with Demerol for pain -Continue antiemetics when necessary, Reglan Pepcid 20 mg IV twice a day -Hold off on antibiotics at this time. -MRA SMA of the abdomen normal -no clear etiology for pain ? gastroparesis, can't have HIDA shortage of CCK nationwide. US GB showed polyp. -continue with supportive care, no need for surgery evaluation at this time. Elevated troponin with epigastric discomfort, rule out acute coronary syndrome.Trop indeterminate, likely elevation sec. to stress -appreciate card input, no procedures are planned at this time -Continue with nitroglycerin 0.5 inch every 6 -Continue with Lovenox 40 mg subcutaneous daily -continue ASA/BB Hypertension, uncontrolled, likely secondary to anxiety and pain continue home medications -Add Vasotec PRN Type 2 diabetes Accu-Cheks before meals and at bedtime with insulin therapy COPD stable, Monitor sats DuoNeb's when necessary for wheezing SCDs for DVT prophylaxis Pepcid for GI prophylaxis Replace K labs in am Ok to transfer out of ICU D/W RN D/W pt and D/W Dr. Chavira This patient was seen by myself and Dr. Chavira, this note is written on his behalf Problem Qualifiers (1) Abdominal pain: Qualified Code: R10.13 - Epigastric pain (2) Intractable nausea and vomiting: Qualified Code: R11.2 - Intractable vomiting with nausea, unspecified vomiting type (3) Leukocytosis: Qualified Code: D72.829 - Leukocytosis, unspecified type (4) DM (diabetes mellitus): Qualified Code: E11.9 - Type 2 diabetes mellitus without complication, unspecified intermodal truck driver insulin use status (5) HTN (hypertension): Qualified Code: I10 - Essential hypertension (6) GERD (gastroesophageal reflux disease): Qualified Code: K21.9 - Gastroesophageal reflux disease without esophagitis (7) COPD (chronic obstructive pulmonary disease): Qualified Code: J44.9 - Chronic obstructive pulmonary disease, unspecified COPD type Annabella Henderson Sep 07, 2016 10:16
--- NOTE | 2016-09-07 10:24 | PD.CARD.PN ---
Subjective Subjective Remarks PT reports severe abdominal pain, trying to keep am meds down Objective Medications Current Medications Medications (Trade) Dose Ordered Sig/Catherine Route Start Time Stop Time Status Last Admin (NS Flush) 2 ml UNSCH PRN IV FLUSH 09/06/16 05:30 (Aspirin) 325 mg DAILY PO 09/07/16 09:00 09/07/16 08:44 (Pepcid Inj) 20 mg Q12HR IV PUSH 09/06/16 11:30 09/07/16 08:44 (Coreg) 3.125 mg Q12HR PO 09/06/16 21:00 09/07/16 08:43 Nitroglycerin 0.5 inch 0.5 inch Q6HR TOPICAL 09/06/16 12:00 09/07/16 05:10 (1/2 NS + KCl 20 Meq Inj) 1,000 ml @ 100 mls/hr Q10H IV 09/06/16 11:45 09/07/16 08:43 (Lovenox Inj) 40 mg Q24H SQ 09/06/16 12:00 09/06/16 13:00 (Breo Ellipta 100-25 Inh) 1 puff DAILY INH 09/07/16 09:00 09/07/16 08:44 ([place] 5-325 Mg) 1 tab Q6H PRN PO 09/06/16 11:45 Patient Own Medication PT OWN MED: [place]... Q4H PRN INH 09/06/16 12:00 Hold (Cozaar) 50 mg DAILY PO 09/07/16 09:00 09/07/16 08:43 (D50w (Vial) Inj) 50 ml UNSCH PRN IV 09/06/16 11:45 (Glucagon Inj) 1 mg UNSCH PRN OTHER 09/06/16 11:45 (Zofran Inj) 4 mg Q6HR PRN IV PUSH 09/06/16 12:30 09/06/16 13:01 (Demerol Inj) 50 mg Q6H PRN IV PUSH 09/06/16 13:45 09/07/16 10:10 Metoclopramide HCl 10 mg 10 mg Q8H PRN IV PUSH 09/06/16 13:45 09/06/16 14:01 (KCl 10 Meq Premix Inj) 100 ml @ 100 mls/hr BOLUS ONCE IV 09/07/16 10:15 09/07/16 11:14 UNV (Vasotec Inj) 1.25 mg Q6H PRN IV PUSH 09/07/16 10:15 UNV Vital Signs / I&O Vital Signs Date Time Temp Pulse Resp B/P Pulse Ox O2 Delivery O2 Flow Rate FiO2 09/07/16 08:00 98.4 54 18 189/74 98 09/07/16 07:00 54 09/07/16 04:00 97.8 57 18 154/64 99 09/07/16 00:00 98.4 59 18 123/58 98 09/06/16 23:27 20 09/06/16 23:00 53 09/06/16 20:49 20 09/06/16 20:00 56 09/06/16 20:00 98.6 56 20 137/63 100 09/06/16 17:39 60 16 130/63 100 Room Air 09/06/16 15:27 70 14 125/62 100 Room Air 09/06/16 12:47 59 16 152/66 98 Room Air I/O 09/06/16 09/06/16 09/06/16 09/07/16 09/07/16 09/07/16 07:00 15:00 23:00 07:00 15:00 23:00 Intake Total 306 ml 639 ml Balance 306 ml 639 ml Intake IV Total 306 ml 639 ml # Voids 1 # Bowel Movements 1 Physical Exam GENERAL: Well developed, well nourished. No acute distress. HEENT: Jugular venous pressure is normal. CHEST: Lungs clear to auscultation bilaterally. Unlabored respiratory effort. CARDIAC: Regular rate and rhythm without S3, S4, or murmur. ABDOMEN: deferred. EXTREMITIES: No clubbing, cyanosis, or edema. Laboratory Laboratory Tests Test 09/06/16 09/06/16 09/06/16 09/07/16 10:45 18:00 19:43 03:45 Troponin I 0.22 NG/ML 0.13 NG/ML Nasal Screen MRSA (PCR) MRSA NOT DETECTED White Blood Count 21.8 TH/MM3 Red Blood Count 3.33 MIL/MM3 Hemoglobin 10.3 GM/DL Hematocrit 31.2 % Mean Corpuscular Volume 93.7 FL Mean Corpuscular Hemoglobin 30.9 PG Mean Corpuscular Hemoglobin 33.0 % Concent Red Cell Distribution Width 13.8 % Platelet Count 275 TH/MM3 Mean Platelet Volume 9.4 FL Sodium Level 139 MEQ/L Potassium Level 3.4 MEQ/L Chloride Level 108 MEQ/L Carbon Dioxide Level 21.0 MEQ/L Anion Gap 10 MEQ/L Blood Urea Nitrogen 7 MG/DL Creatinine 0.69 MG/DL Estimat Glomerular Filtration 86 ML/MIN Rate Random Glucose 85 MG/DL Calcium Level 7.5 MG/DL Triglycerides Level 65 MG/DL Cholesterol Level 133 MG/DL LDL Cholesterol 81 MG/DL HDL Cholesterol 39.5 MG/DL Cholesterol/HDL Ratio 3.36 RATIO Assessment and Plan Assessment and Plan 1. Elevated troponin -- likely secondary to her blood pressure spikes. sBP 190' s currently -no change, asymptomatic -ECHO EF 60% 2. Hypertension -- continue present meds 4. Nausea and vomiting -- Malena Sifuentes MD Sep 07, 2016 10:24
[2016-09-07] MEDS: ENOXAPARIN SODIUM 40 MG/0.4 ML SYRINGE SQ SCH (11:43)
--- NOTE | 2016-09-07 12:26 | HHI.GIFU ---
GI Follow-up Note Consult Follow-up Subjective: Patient laying in bed--still c/o moderate epigastric pain. had N/V with jello.no GI bleeding. No CP/SOB Objective: PHYSICAL EXAMINATION: Vitals signs stable No fever NECK: Neck is supple, no JVD, no lymphadenopathy. CHEST: Chest is clear to auscultation and percussion. CARDIAC: Regular rate and rhythm with no murmur gallop or rubs. ABDOMEN: Soft, nondistended, + tenderness in upper abd no hepatosplenomegaly; bowel sounds are present in all four quadrants. EXTREMITIES: No edema. SKIN: no jaundice. SEC REPORTING CONSULTANT: No focal deficits; alert and oriented times three. Available Data (labs, X- Rays, Procedures) : WBC elevation worse. Reviewed U/S, CT and MRA and EGD with radiology-nothing seen to explain her pain ASSESSMENT/PLAN: 1. Epigastric pain-? GB disease 2. N/V 2. elevated WBC 4. GB wall polyp 5. elevated troponin PLAN: 1. HIDA scan (no CCK eval). Pt and are aware of this and we are trying to r/o acute cholecystitis 2. bowel rest 3. antibiotics (Flagyl and Lev) 4. Consider surgical eval if pain worsens 5. Cont H2 dom It was a pleasure seeing Nicole Cabrera Thank you for this consult. Entered by: Armen Farrar MD Sep 07, 2016 12:26
[2016-09-07] MEDS ORDERED: metroNIDAZOLE 500 MG INJ 100 ML IV SCH ×2 (13:00→16:00)
--- NOTE | 2016-09-07 13:34 | EKG ---
Date Performed: 09/06/2016 Time Performed: 12:42:11 PTAGE: 61 years EKG: SINUS BRADYCARDIA BORDERLINE ECG PREVIOUS TRACING : 09/06/2016 10.33 Compared to prior tracing no significant change DOCTOR: Lan Pena Interpretating Date/Time 09/07/2016 13:31:25
[2016-09-07] MEDS ORDERED: LEVOFLOXACIN 500 MG PREMIX INJ 100 ML IV SCH ×2 (14:00→16:00)
--- NOTE | 2016-09-07 16:19 | RADRPT ---
EXAM DATE/TIME: 09/07/2016 14:34 [facility] COMPARISON: No previous studies available for comparison. INDICATIONS : Epigastric pain with nausea and vomiting. DOSE: 4.2 mCi Tc99m Mebrofenin IV MEDICAL HISTORY : Hypertension. Diabetes mellitus type 2. SURGICAL HISTORY : Hysterectomy. ENCOUNTER: Initial ACUITY: 1 day PAIN SCALE: 4/10 LOCATION: Right upper quadrant TECHNIQUE: Following the intravenous administration of radiotracer, dynamic sequential images were performed wit h continuous acquisition. FINDINGS: HEPATIC KINETICS: There is prompt uptake of radiotracer in the liver. No focal defects are seen. There is normal rate of washout from the hepatic parenchyma. BILIARY CLEARANCE: Activity is first seen in the extrahepatic biliary system at 10 minutes. There is normal excretion i nto the small bowel. GALLBLADDER: Activity is first seen in the gallbladder at 10 minutes. Common bile duct kinetics are normal and th ere is no evidence of biliary obstruction. BILIARY ENTRIC REFLUX: None observed. CONCLUSION: 1. No findings to indicate biliary obstruction identified. 2. No findings to indicate acute cholecystitis identified. Brock Gibbs MD on September 07, 2016 at 16:17 Board Certified Radiologist. This report was verified electronically.
[2016-09-07] MEDS: ENALAPRILAT 1.25 MG/ML VIAL IV PUSH PRN (18:21)
[2016-09-07] MEDS: metroNIDAZOLE 500 MG INJ 100 ML IV SCH (20:58)
[2016-09-07] MEDS: METOCLOPRAMIDE HCL 10 MG/2 ML VIAL IV PUSH PRN (21:12)
[2016-09-08] VITALS (8 sets, daily range): BP systolic 124–182; BP diastolic 55–85; PULSE 53–62; RESP 16–22; TEMP 98.3–98.9; O2SAT 96–100
[2016-09-08] MEDS: 1/2 NS + KCL 20 MEQ INJ 1,000 ML IV SCH ×3 (02:54→23:20)
[2016-09-08] MEDS: METOCLOPRAMIDE HCL 10 MG/2 ML VIAL IV PUSH PRN ×2 (04:46→15:00)
[2016-09-08] MEDS: metroNIDAZOLE 500 MG INJ 100 ML IV SCH ×3 (04:46→20:07)
[2016-09-08] MEDS: MEPERIDINE HCL 50 MG/ML VIAL IV PUSH PRN ×3 (05:25→21:18)
[2016-09-08] MEDS: NITROGLYCERIN 2% OINT 1 GM PACKET TOPICAL SCH (05:25)
[2016-09-08] MEDS: ENALAPRILAT 1.25 MG/ML VIAL IV PUSH PRN ×2 (05:58→11:44)
[2016-09-08] MEDS: INSULIN ASPART SUPPLEMENTAL SCALE SQ SCH ×4 (06:01→21:00)
[2016-09-08 07:09] LABS: AUTOMATED NEUTROPHIL # 8.1 TH/MM3 (1.8-7.7); BASOPHIL # 0.1 TH/MM3 (0-0.2); BASOPHIL % 0.5 % (0.0-2.0); EOSINOPHIL # 1.7 TH/MM3 (0-0.4); EOSINOPHIL % 12.8 % (0.0-4.0); HEMO FLAGS DIFF FINAL; LYMPH % 18.5 % (9.0-44.0); LYMPHOCYTE # 2.5 TH/MM3 (1.0-4.8); MEAN CELL VOLUME 93.8 FL (80.0-100.0); MEAN CORPUSCULAR HEMOGLOBIN 30.5 PG (27.0-34.0); MEAN CORPUSCULAR HGB CONC 32.6 % (32.0-36.0); MONO % 7.1 % (0.0-8.0); NEUT % 61.1 % (16.0-70.0); PLATELET COUNT 258 TH/MM3 (150-450); RED BLOOD COUNT 3.41 MIL/MM3 (4.00-5.30); RED CELL DISTRIBUTION WIDTH 13.8 % (11.6-17.2); WHITE BLOOD COUNT 13.3 TH/MM3 (4.0-11.0)
[2016-09-08 07:43] LABS: BICARBONATE 19.7 MEQ/L (21.0-32.0); INDIRECT BILIRUBIN 0.3 MG/DL (0.0-0.8); MAGNESIUM 1.8 MG/DL (1.5-2.5); POTASSIUM 3.7 MEQ/L (3.5-5.1); TOTAL BILIRUBIN ADULT 0.4 MG/DL (0.2-1.0)
[2016-09-08] MEDS: CARVEDILOL 3.125 MG TAB PO SCH ×2 (09:00→21:17)
[2016-09-08] MEDS: ASPIRIN 325 MG TAB PO SCH ×2 (09:00→09:02)
[2016-09-08] MEDS: FLUTICASONE 100 MCG/VILANTEROL 25 MCG INHALER INH SCH (09:02)
[2016-09-08] MEDS: LOSARTAN 50 MG TAB PO SCH ×2 (09:02→21:17)
[2016-09-08] MEDS: FAMOTIDINE 20 MG/2 ML VIAL IV PUSH SCH ×2 (09:02→21:17)
--- NOTE | 2016-09-08 11:02 | HHI.PR ---
Subjective Remarks tearful, anxious frustrated because she doesn't know what is going doesn't want to be sick has been crying all night c/o headache doesn't like clear liquid diet, too salty, has only been drinking [place] kd and has been keeping down. No vomiting still very nauseous epigastric tenderness loose stools every 2 hours BP up 170s SB on tele Objective Objective Results - Vital Signs Date Time Temp Pulse Resp B/P Pulse Ox O2 Delivery O2 Flow Rate FiO2 09/08/16 08:00 98.6 56 22 174/76 98 09/08/16 04:00 98.3 54 18 182/76 96 09/08/16 02:56 Room Air 09/08/16 00:00 98.9 56 16 180/76 98 09/07/16 20:00 98.6 53 16 165/73 99 09/07/16 19:59 52 09/07/16 17:00 98.4 51 24 186/84 98 09/07/16 12:00 97.9 50 21 183/74 100 I/O 09/07/16 09/07/16 09/07/16 09/08/16 09/08/16 09/08/16 07:00 15:00 23:00 07:00 15:00 23:00 Intake Total 639 ml 1007 ml 800 ml 1040 ml Balance 639 ml 1007 ml 800 ml 1040 ml Intake Oral 50 ml 240 ml IV Total 639 ml 957 ml 800 ml 800 ml # Voids 3 3 # Bowel Movements 2 0 Result Diagram: 09/08/16 0610 09/08/16 0610 Imaging Last Impressions Abdomen/Pelvis CT 09/06/16 0617 Signed Impressions: Service Date/Time: Tuesday, September 06, 2016 08:25 - CONCLUSION: Uncomplicated colonic diverticulosis. Tiny stable subcentimeter cyst within the anterior aspect of the liver. 7 mm simple cyst within the medial aspect of the upper pole of the right kidney. Reji Dodd MD Chest X-Ray 09/06/16 0000 Signed Impressions: Service Date/Time: Tuesday, September 06, 2016 09:50 - CONCLUSION: 1. No acute cardiopulmonary disease. Sanjeev Hector MD Other Results Laboratory Tests Test 09/08/16 06:10 White Blood Count 13.3 Red Blood Count 3.41 Hemoglobin 10.4 Hematocrit 32.0 Mean Corpuscular Volume 93.8 Mean Corpuscular Hemoglobin 30.5 Mean Corpuscular Hemoglobin 32.6 Concent Red Cell Distribution Width 13.8 Platelet Count 258 Mean Platelet Volume 9.1 Neutrophils (%) (Auto) 61.1 Lymphocytes (%) (Auto) 18.5 Monocytes (%) (Auto) 7.1 Eosinophils (%) (Auto) 12.8 Basophils (%) (Auto) 0.5 Neutrophils # (Auto) 8.1 Lymphocytes # (Auto) 2.5 Monocytes # (Auto) 0.9 Eosinophils # (Auto) 1.7 Basophils # (Auto) 0.1 CBC Comment DIFF FINAL Differential Comment Sodium Level 140 Potassium Level 3.7 Chloride Level 109 Carbon Dioxide Level 19.7 Anion Gap 11 Blood Urea Nitrogen 8 Creatinine 0.67 Estimat Glomerular Filtration 89 Rate Random Glucose 81 Calcium Level 8.0 Magnesium Level 1.8 Total Bilirubin 0.4 Direct Bilirubin 0.1 Indirect Bilirubin 0.3 Aspartate Amino Transf 36 (AST/SGOT) Alanine Aminotransferase 45 (ALT/SGPT) Alkaline Phosphatase 96 Total Protein 5.2 Albumin 3.0 Amylase Level 24 Lipase 88 Date/Time Procedure Status Source Growth 09/06/16 09:38 Aerobic Blood Culture - Preliminary Resulted Blood Peripheral NO GROWTH IN 1 DAY 09/06/16 09:38 Anaerobic Blood Culture - Preliminary Resulted Blood Peripheral NO GROWTH IN 1 DAY ROS General: No: Fatigue, Weakness HEENT: No: Sore Throat, Dysphagia Cardiac: No: Chest Pain, Edema, Palpitations Pulmonary: No: Cough, SOB, Wheezing GI: Abdominal Pain, Diarrhea, 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 Normocephalic. No temporal or scalp tenderness. EYES: Pupils equal round and reactive. Extraocular motions intact. No scleral icterus. No injection or drainage. ENT: Nose without bleeding, purulent drainage or septal hematoma. Throat without erythema, tonsillar hypertrophy or exudate. Uvula midline. Airway patent. NECK: Trachea midline. No JVD or lymphadenopathy. Supple, nontender, no meningeal signs. CARDIOVASCULAR: Regular rate and rhythm without murmurs, gallops, or rubs. RESPIRATORY: Clear to auscultation. Breath sounds equal bilaterally. No wheezes , rales, or rhonchi. GASTROINTESTINAL: Abdomen soft, epigastric tenderness, nondistended. No hepato- splenomegaly, or palpable masses. No guarding. MUSCULOSKELETAL: Extremities without clubbing, cyanosis, or edema. No joint tenderness, effusion, or edema noted. No calf tenderness. Negative Homans sign bilaterally. NEUROLOGICAL: awake, alert oriented x 3. No focal deficits, anxious, tearful. Urinary Catheter: No Vascular Central Line Catheter: No A/P Diagnosis: (1) Abdominal pain (2) Dehydration (3) Intractable nausea and vomiting (4) Ketonuria (5) Leukocytosis (6) DM (diabetes mellitus) (7) HTN (hypertension) (8) GERD (gastroesophageal reflux disease) (9) COPD (chronic obstructive pulmonary disease) Assessment and Plan 61-year-old white female presented to the emergency room with complaint of recurrent abdominal pain with intermittent nausea vomiting. Was recently admitted for same symptoms, underwent GI workup without significant findings. She was noted with leukocytosis and eosinophilia. Was discharged on Flagyl and Levaquin. Intractable nausea vomiting, epigastric pain, etiology unclear. Dehydration, ketonuria, acidosis Leukocytosis, etiology unclear. GERD -labs reviewed, acidosis resolving -Clear liquid diet, seems to be tolerating but still with nausea. Will keep her on it. -IV fluids -Patient is allergic to morphine and Dilaudid, continue with Demerol for pain -Continue antiemetics when necessary, Reglan Pepcid 20 mg IV twice a day -started on Levaquin and Flagyl, tolerating well. WBC trending down -MRA SMA of the abdomen normal -HIDA yesterday, no obstruction -no clear etiology for abd. pain and n/v. May need repeat EGD Diarrhea -stools for cdiff Elevated troponin with epigastric discomfort, rule out acute coronary syndrome.Trop indeterminate, likely elevation sec. to stress -appreciate card input, no procedures are planned at this time -DC ntg, c/o headache -Continue with Lovenox 40 mg subcutaneous daily -continue ASA/BB Hypertension, uncontrolled, likely secondary to anxiety and pain BP elevated overnight continue home medications. Inc. Cozaar to 50 mg po bid. -continueVasotec PRN Anxious, tearful -Add Xanax prn Type 2 diabetes Accu-Cheks before meals and at bedtime with insulin therapy COPD stable, Monitor sats DuoNeb's when necessary for wheezing SCDs for DVT prophylaxis Pepcid for GI prophylaxis No clear etiology for pt's pain will wait for further recs from GI continue with supportive care D/W RN D/W pt D/W Dr. Chavira This patient was seen by myself and Dr. Chavira, this note is written on his behalf Problem Qualifiers (1) Abdominal pain: Qualified Code: R10.13 - Epigastric pain (2) Intractable nausea and vomiting: Qualified Code: R11.2 - Intractable vomiting with nausea, unspecified vomiting type (3) Leukocytosis: Qualified Code: D72.829 - Leukocytosis, unspecified type (4) DM (diabetes mellitus): Qualified Code: E11.9 - Type 2 diabetes mellitus without complication, unspecified buttermaker continuous churn insulin use status (5) HTN (hypertension): Qualified Code: I10 - Essential hypertension (6) GERD (gastroesophageal reflux disease): Qualified Code: K21.9 - Gastroesophageal reflux disease without esophagitis (7) COPD (chronic obstructive pulmonary disease): Qualified Code: J44.9 - Chronic obstructive pulmonary disease, unspecified COPD type Annabella Henderson Sep 08, 2016 11:02
[2016-09-08] MEDS: ENOXAPARIN SODIUM 40 MG/0.4 ML SYRINGE SQ SCH (11:43)
--- NOTE | 2016-09-08 11:58 | HHI.GIFU ---
GI Follow-up Note Consult Follow-up Subjective: Patient laying in bed -c/o upper abd pain and nausea. now with some loose stools. Objective: PHYSICAL EXAMINATION: Vitals signs stable No fever CHEST: Chest is clear to auscultation and percussion. CARDIAC: Regular rate and rhythm with no murmur gallop or rubs. ABDOMEN: Soft, nondistended, tender upper abd. no rebound; no hepatosplenomegaly; bowel sounds are present in all four quadrants. EXTREMITIES: No edema. SKIN: no jaundice. SENIOR SOFTWARE ENGINEERING MANAGER: alert and oriented times three. Available Data (labs, X- Rays, Procedues) : HIDA scan negative. WBC decreased to 13.3 ASSESSMENT/PLAN: 1. Epigastric pain-w/u negative 2. N/V 2. elevated WBC -better 4. GB wall polyp 5. elevated troponin PLAN: 1. Stool for C. diff 2. Levsin 3. antibiotics (Flagyl and Lev) 4. family requests a surgical eval 5. Cont H2 dom It was a pleasure seeing Nicole Cabrera Thank you for this consult. Entered by: Armen Farrar MD Sep 08, 2016 11:58
[2016-09-08] MEDS: LEVOFLOXACIN 500 MG PREMIX INJ 100 ML IV SCH (13:25)
--- NOTE | 2016-09-08 14:20 | PD.CARD.PN ---
Subjective Subjective Remarks Pt c/o epigastric pain Objective Medications Current Medications Medications (Trade) Dose Ordered Sig/Catehrine Route Start Time Stop Time Status Last Admin (NS Flush) 2 ml UNSCH PRN IV FLUSH 09/06/16 05:30 (Aspirin) 325 mg DAILY PO 09/07/16 09:00 09/07/16 08:44 (Pepcid Inj) 20 mg Q12HR IV PUSH 09/06/16 11:30 09/08/16 09:02 Carvedilol 3.125 mg 3.125 mg Q12HR PO 09/06/16 21:00 09/07/16 20:58 (1/2 NS + KCl 20 Meq Inj) 1,000 ml @ 100 mls/hr Q10H IV 09/06/16 11:45 09/08/16 11:43 (Lovenox Inj) 40 mg Q24H SQ 09/06/16 12:00 09/08/16 11:43 (Breo Ellipta 100-25 Inh) 1 puff DAILY INH 09/07/16 09:00 09/08/16 09:02 ([place] 5-325 Mg) 1 tab Q6H PRN PO 09/06/16 11:45 Patient Own Medication PT OWN MED: [place]... Q4H PRN INH 09/06/16 12:00 Hold (D50w (Vial) Inj) 50 ml UNSCH PRN IV 09/06/16 11:45 (Glucagon Inj) 1 mg UNSCH PRN OTHER 09/06/16 11:45 (Zofran Inj) 4 mg Q6HR PRN IV PUSH 09/06/16 12:30 09/06/16 13:01 (Demerol Inj) 50 mg Q6H PRN IV PUSH 09/06/16 13:45 09/08/16 11:44 (Reglan Inj) 10 mg Q8H PRN IV PUSH 09/06/16 13:45 09/08/16 04:46 Enalaprilat 1.25 mg 1.25 mg Q6H PRN IV PUSH 09/07/16 12:00 09/08/16 11:44 Levofloxacin/ Dextrose 100 ml @ 100 mls/hr Q24H IV 09/08/16 14:00 09/08/16 13:25 (Flagyl 500 Mg Inj) 100 ml @ 100 mls/hr Q8H IV 09/07/16 21:00 09/08/16 11:43 (Cozaar) 50 mg BID PO 09/08/16 21:00 (Levsin) 0.125 mg ACHS PO 09/08/16 16:00 09/10/16 15:59 Vital Signs / I&O Vital Signs Date Time Temp Pulse Resp B/P Pulse Ox O2 Delivery O2 Flow Rate FiO2 09/08/16 12:00 98.4 58 18 171/55 100 09/08/16 08:00 98.6 56 22 174/76 98 09/08/16 04:00 98.3 54 18 182/76 96 09/08/16 02:56 Room Air 09/08/16 00:00 98.9 56 16 180/76 98 09/07/16 20:00 98.6 53 16 165/73 99 09/07/16 19:59 52 09/07/16 17:00 98.4 51 24 186/84 98 I/O 09/07/16 09/07/16 09/07/16 09/08/16 09/08/16 09/08/16 07:00 15:00 23:00 07:00 15:00 23:00 Intake Total 639 ml 1007 ml 800 ml 1040 ml Balance 639 ml 1007 ml 800 ml 1040 ml Intake Oral 50 ml 240 ml IV Total 639 ml 957 ml 800 ml 800 ml # Voids 3 3 # Bowel Movements 2 0 Physical Exam GENERAL: Well developed, well nourished. No acute distress. HEENT: Jugular venous pressure is normal. CHEST: Lungs clear to auscultation bilaterally. Unlabored respiratory effort. CARDIAC: Regular rate and rhythm without S3, S4, or murmur. ABDOMEN: deferred. EXTREMITIES: No clubbing, cyanosis, or edema. Laboratory Laboratory Tests Test 09/08/16 06:10 White Blood Count 13.3 TH/MM3 Red Blood Count 3.41 MIL/MM3 Hemoglobin 10.4 GM/DL Hematocrit 32.0 % Mean Corpuscular Volume 93.8 FL Mean Corpuscular Hemoglobin 30.5 PG Mean Corpuscular Hemoglobin 32.6 % Concent Red Cell Distribution Width 13.8 % Platelet Count 258 TH/MM3 Mean Platelet Volume 9.1 FL Neutrophils (%) (Auto) 61.1 % Lymphocytes (%) (Auto) 18.5 % Monocytes (%) (Auto) 7.1 % Eosinophils (%) (Auto) 12.8 % Basophils (%) (Auto) 0.5 % Neutrophils # (Auto) 8.1 TH/MM3 Lymphocytes # (Auto) 2.5 TH/MM3 Monocytes # (Auto) 0.9 TH/MM3 Eosinophils # (Auto) 1.7 TH/MM3 Basophils # (Auto) 0.1 TH/MM3 CBC Comment DIFF FINAL Differential Comment Sodium Level 140 MEQ/L Potassium Level 3.7 MEQ/L Chloride Level 109 MEQ/L Carbon Dioxide Level 19.7 MEQ/L Anion Gap 11 MEQ/L Blood Urea Nitrogen 8 MG/DL Creatinine 0.67 MG/DL Estimat Glomerular Filtration 89 ML/MIN Rate Random Glucose 81 MG/DL Calcium Level 8.0 MG/DL Magnesium Level 1.8 MG/DL Total Bilirubin 0.4 MG/DL Direct Bilirubin 0.1 MG/DL Indirect Bilirubin 0.3 MG/DL Aspartate Amino Transf 36 U/L (AST/SGOT) Alanine Aminotransferase 45 U/L (ALT/SGPT) Alkaline Phosphatase 96 U/L Total Protein 5.2 GM/DL Albumin 3.0 GM/DL Amylase Level 24 U/L Lipase 88 U/L Thyroid Stimulating Hormone 7.200 uIU/ML 3rd Gen Imaging Last 72 hours Impressions Hepatobiliary Scan Nuclear Medicine 09/07/16 0000 Signed Impressions: Service Date/Time: Wednesday, September 07, 2016 14:34 - CONCLUSION: 1. No findings to indicate biliary obstruction identified. 2. No findings to indicate acute cholecystitis identified. Brock Gibbs MD Abdomen/Pelvis CT 09/06/16 0617 Signed Impressions: Service Date/Time: Tuesday, September 06, 2016 08:25 - CONCLUSION: Uncomplicated colonic diverticulosis. Tiny stable subcentimeter cyst within the anterior aspect of the liver. 7 mm simple cyst within the medial aspect of the upper pole of the right kidney. Reji Dodd MD Chest X-Ray 09/06/16 0000 Signed Impressions: Service Date/Time: Tuesday, September 06, 2016 09:50 - CONCLUSION: 1. No acute cardiopulmonary disease. Sanjeev Hector MD Abdomen MRI 09/06/16 0000 Signed Impressions: Service Date/Time: Tuesday, September 06, 2016 15:54 - CONCLUSION: Abdominal MRA within normal limits. Kevan Farmer MD Assessment and Plan Assessment and Plan 1. Elevated troponin -- likely secondary to her blood pressure -no change, asymptomatic -ECHO EF 60% -consider nuc stress if gastric emptying study is normal 2. Hypertension -- BP staying high, add amlodipine 4. Nausea and vomiting -- GI Malena Bolden MD Sep 08, 2016 14:20
[2016-09-08] MEDS ORDERED: amLODIPine BESYLATE 5 MG TAB PO ONE (15:00)
[2016-09-08] MEDS: HYOSCYAMINE 0.125 MG TAB PO SCH ×2 (16:26→21:17)
[2016-09-08] MEDS: ALPRAZolam 0.25 MG TAB PO PRN (16:26)
--- NOTE | 2016-09-08 20:54 | MB ---
cc: EARNESTINE BIANCHI M.D., HARRY M.D. RICCI, DONATO PASRICHA, SUNIL P. M.D. DATE OF CONSULTATION: 09/08/2016. REASON FOR CONSULTATION: Consideration for cholecystectomy in a patient with epigastric pain and vomiting. HISTORY OF PRESENT ILLNESS: The patient is a 61-year-old female who has had on and off problems with pain since Memorial day two weeks ago but also had some problems prior to this. The patient was seen on September [address] Montero who performed upper endoscopy which revealed a ringed esophagus as well as a pyloric stenosis which was easily dilated. Ultrasound revealed a gallbladder wall polyp but no gallbladder wall thickening. LFTs and lipase were normal at the time. The patient returns at this time with continued pain and had several episodes of nausea and vomiting two days ago. She has undergone CT of the abdomen and pelvis which demonstrates uncomplicated colonic diverticulosis. the abdominal wall was within normal limits. There is a sub-centimeter cyst in the anterior aspect of the liver and a small cyst in the upper pole of the right kidney. There are no calcified gallstones noted on CT scan. The patient underwent an abdominal MRI to rule out intestinal ischemia. This is the MRA was in normal limits. There is no free fluid or abdominal masses and no adenopathy. Liver and spleen are free of focal defects. The pancreas appeared normal as well. HIDA scan was just performed yesterday which demonstrates acute activity in the gallbladder at 10 minutes with common bile duct kinetics normal with no evidence of biliary obstruction. The patient has been asked to see a surgeon to consider cholecystectomy. The patient has a gastric emptying study ordered and a stress test was recommended if this is normal. PAST MEDICAL HISTORY: Past medical history significant for: 1. A gastric ulcer in 2008. 2. Diabetes mellitus. 3. Asthma. 4. Arthritis. 5. COPD. 6. Hypertension. 7. Diverticular disease. 8. Lyme disease. 9. Chronically leukocytosis with hematology workup being unremarkable. PAST SURGICAL HISTORY:: 1. . 2. Knee surgery. 3. breast augmentation. 4. Hysterectomy with bilateral salpingo-oophorectomy and abdominoplasty. ALLERGIES: Allergies are multiple and include: 1. CODEINE. 2. MORPHINE. 3. PENICILLIN. 4. HYDROMORPHONE. 5. PREDNISONE. 6. SULFA PRODUCTS. 7. PANTOPRAZOLE. SOCIAL HISTORY: The patient drinks two to three drinks of alcohol two to three times a week. Stopped smoking in 2002. MEDICATIONS: Medications include: 1. Cozaar. 2. Coreg. 3. Demerol. 4. Reglan. 5. Zofran. 6. Lovenox. 7. Potassium. 8. Hydrocodone, which he takes twice a day. 9. Famotidine. PHYSICAL EXAMINATION: GENERAL: Physical exam reveals a female in no acute distress. VITAL SIGNS: Blood pressure 171/55, pulse 58, respirations 18, temperature 98.4, 100% saturation on room air. HEAD, EYES, EARS, NOSE, THROAT: Sclerae anicteric. Pupils reactive. CHEST: Clear to auscultation. CARDIAC: Cardiac exam reveals regular rate and rhythm. ABDOMEN: Abdomen is soft with some minimal epigastric tenderness to deep palpation. There is no positive Tenorio's sign and there is no guarding. LABORATORY DATA: Laboratory values demonstrate WBCs of 13.3 today, down from 21.8 yesterday. Chemistries are all essentially within normal limits with all LFTs in normal limits. Urinalysis is essentially unremarkable as well except for urine ketones. ASSESSMENT: 1. Epigastric pain of unclear etiology although the patient may have some gastric emptying issues. It is unlikely that the gallbladder is causing her acute problems, although I did mention to her that if all other workup is negative we could consider removal but that the yield and success would be quite low on the order of 20%. I indicated to her that there is approximately a 70% to 80% chance that she would get no better and possibly even worse from a cholecystectomy. I also discussed with her that if there is an outlet problem, that a pyloroplasty could be considered but this would need to be documented well by the plumbing installer before we consider it. She vocalizes understanding of all of the above; we will follow with you. Thank you for allowing us the opportunity to care for her with you. MD JETT Carvalho/ELEN /8:19 PM /8:48 PM
[2016-09-08 22:55] LABS: C. DIFF EPI 027 PRESUMPTIVE NEGATIVE (NEGATIVE); C. DIFF TOXIN PCR NEGATIVE (NEGATIVE)
[2016-09-09] VITALS: BP 162/72; PULSE 65; RESP 16; TEMP 98.4; O2SAT 97
[2016-09-09] MEDS: ENALAPRILAT 1.25 MG/ML VIAL IV PUSH PRN (03:59)
[2016-09-09] MEDS: ALPRAZolam 0.25 MG TAB PO PRN ×3 (03:59→23:19)
[2016-09-09] MEDS: metroNIDAZOLE 500 MG INJ 100 ML IV SCH ×3 (04:00→20:30)
[2016-09-09 04:05] VITALS: BP 185/75; PULSE 63; RESP 18; TEMP 98.5; O2SAT 98
[2016-09-09] MEDS: INSULIN ASPART SUPPLEMENTAL SCALE SQ SCH ×4 (05:45→20:28)
[2016-09-09] MEDS: HYOSCYAMINE 0.125 MG TAB PO SCH ×4 (06:57→20:28)
[2016-09-09 08:25] VITALS: BP 174/77; PULSE 57; RESP 18; TEMP 98.5; O2SAT 98
[2016-09-09] MEDS: CARVEDILOL 3.125 MG TAB PO SCH ×2 (09:00→20:29)
[2016-09-09] MEDS: LOSARTAN 50 MG TAB PO SCH ×2 (09:00→20:29)
[2016-09-09] MEDS: amLODIPine BESYLATE 5 MG TAB PO SCH (09:00)
[2016-09-09] MEDS: ASPIRIN 325 MG TAB PO SCH ×2 (09:00→09:34)
[2016-09-09] MEDS: FLUTICASONE 100 MCG/VILANTEROL 25 MCG INHALER INH SCH (09:31)
[2016-09-09] MEDS: FAMOTIDINE 20 MG/2 ML VIAL IV PUSH SCH ×2 (09:34→20:29)
--- NOTE | 2016-09-09 09:47 | HHI.GIFU ---
GI Follow-up Note Consult Follow-up Subjective: Patient laying in bed. stating she feels better overall. she is not sure if it was the valium or the levsin which helped her. still with epigastric pain. pt npo for gastric emptying scan. some loose stools Objective: PHYSICAL EXAMINATION: 174/77-57-18 No fever HEENT: no jaundice. Throat is clear. CHEST: Chest is clear to auscultation and percussion. CARDIAC: Regular rate and rhythm with no murmur gallop or rubs. ABDOMEN: Soft, nondistended, still with epigastric tenderness but no rebound .no hepatosplenomegaly; bowel sounds are present in all four quadrants. EXTREMITIES: No clubbing, cyanosis, or edema. SKIN: no rash; no jaundice. 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 Available Data (labs, X- Rays, Procedures) : Surgical note reviewed. C. diff negative ASSESSMENT/PLAN: 1. Epigastric pain-w/u negative. feels better but still has pain 2. N/V- GES pending this am 2. elevated WBC -better 4. GB wall polyp 5. elevated troponin 6. Loose stools-prob antibiotics PLAN: 1. awaiting GES 2. Cont Levsin 3. antibiotics (Flagyl and Lev) 4. Repeat EGD and/or EUS would be low yield procedures 5. Cont H2 dom It was a pleasure seeing Nicole Cabrera Thank you for this consult. Entered by: Armen Farrar MD Sep 09, 2016 09:47
[2016-09-09] MEDS: 1/2 NS + KCL 20 MEQ INJ 1,000 ML IV SCH ×2 (10:09→19:45)
[2016-09-09] MEDS: METOCLOPRAMIDE HCL 10 MG/2 ML VIAL IV PUSH PRN ×2 (12:13→20:55)
--- NOTE | 2016-09-09 13:10 | RADRPT ---
EXAM DATE/TIME: 09/09/2016 10:25 [facility] COMPARISON: No previous studies available for comparison. INDICATIONS : Abdominal pain with nausea and vomiting for one week. DOSE: 1.1 mCi Tc99m Sulfur Colloid Labeled Whole egg PO MEDICATONS: 1.) 5 mg Reglan IV at 90 minutes IMAGIN hrs MEDICAL HISTORY : Hypertension. Diabetes mellitus type 2. SURGICAL HISTORY : Hysterectomy. ENCOUNTER: Initial ACUITY: 1 week PAIN SCALE: 5/10 LOCATION: upper quadrant TECHNIQUE: Following the oral ingestion of radiotracer-labeled meal, dynamic sequential images in the VIC projec tion were acquired with simultaneous computer acquisition. The data set was decay-corrected. FINDINGS: EMPTYING: There is very little gastric emptying even after intravenous Reglan administration. CONCLUSION: Severe delayed gastric emptying with very little gastric emptying occurring throughout the study incl uding after intervention with intravenous Reglan. Monty Guevara MD on September 09, 2016 at 13:02 Board Certified Radiologist. This report was verified electronically.
[2016-09-09] MEDS: ENOXAPARIN SODIUM 40 MG/0.4 ML SYRINGE SQ SCH (13:48)
--- NOTE | 2016-09-09 15:34 | HHI.PR ---
Subjective Remarks pt is feeling some ach sometime in stomach area no n/v now had this am during test no other complaint ros for 10 point system is unremarkable otherwise Objective Objective Results - Vital Signs Date Time Temp Pulse Resp B/P Pulse Ox O2 Delivery O2 Flow Rate FiO2 09/09/16 08:25 98.5 57 18 174/77 98 09/09/16 04:05 98.5 63 18 185/75 98 09/09/16 02:00 Room Air 09/09/16 00:00 98.4 65 16 162/72 97 09/08/16 22:48 Room Air 09/08/16 20:46 62 09/08/16 20:00 98.4 58 16 124/85 100 09/08/16 16:00 98.3 57 18 170/78 100 I/O 09/08/16 09/08/16 09/08/16 09/09/16 09/09/16 09/09/16 07:00 15:00 23:00 07:00 15:00 23:00 Intake Total 1040 ml 2248 ml 1280 ml 920 ml Balance 1040 ml 2248 ml 1280 ml 920 ml Intake Oral 240 ml 120 ml 480 ml 120 ml IV Total 800 ml 2128 ml 800 ml 800 ml # Voids 3 4 4 5 # Bowel Movements 0 1 4 5 Result Diagram: 09/08/16 0610 09/08/16 0610 Imaging Last Impressions Abdomen/Pelvis CT 09/06/16 0617 Signed Impressions: Service Date/Time: Tuesday, September 06, 2016 08:25 - CONCLUSION: Uncomplicated colonic diverticulosis. Tiny stable subcentimeter cyst within the anterior aspect of the liver. 7 mm simple cyst within the medial aspect of the upper pole of the right kidney. Reji Dodd MD Chest X-Ray 09/06/16 0000 Signed Impressions: Service Date/Time: Tuesday, September 06, 2016 09:50 - CONCLUSION: 1. No acute cardiopulmonary disease. Sanjeev Hector MD Other Results Laboratory Tests Test 09/08/16 20:00 Stool C. difficile Toxin (PCR) NEGATIVE Stl C. difficile Toxin PRESUMPTIVE Epiderm 027 NEGATIVE Date/Time Procedure Status Source Growth 09/06/16 09:38 Aerobic Blood Culture - Preliminary Resulted Blood Peripheral NO GROWTH IN 3 DAYS 09/06/16 09:38 Anaerobic Blood Culture - Preliminary Resulted Blood Peripheral NO GROWTH IN 3 DAYS Physical Exam Physical Exam ROS General: No: Fatigue, Weakness HEENT: No: Sore Throat, Dysphagia Cardiac: No: Chest Pain, Edema, Palpitations Pulmonary: No: Cough, SOB, Wheezing GI: Abdominal ach, no Diarrhea, had Nausea this am /PRESSER AUTOMATIC: No: Dysuria, Urgency Neuro/MS: Other (headache ), No: Lightheaded, Confusion Psych: Anxiety Skin: No: Itching, Rash Physical Exam Physical Exam GENERAL: This is a well-nourished, well-developed patient, very anxious SKIN: warm and dry HEAD: Atraumatic. Normocephalic. No temporal or scalp tenderness. EYES: Pupils equal round and reactive. Extraocular motions intact. No scleral icterus. No injection or drainage. ENT: Nose without bleeding, purulent drainage or septal hematoma. Throat without erythema, tonsillar hypertrophy or exudate. Uvula midline. Airway patent. NECK: Trachea midline. No JVD or lymphadenopathy. Supple, nontender, no meningeal signs. CARDIOVASCULAR: Regular rate and rhythm without murmurs, gallops, or rubs. RESPIRATORY: Clear to auscultation. Breath sounds equal bilaterally. No wheezes , rales, or rhonchi. GASTROINTESTINAL: Abdomen soft, epigastric tenderness, nondistended. No hepato- splenomegaly, or palpable masses. No guarding. MUSCULOSKELETAL: Extremities without clubbing, cyanosis, or edema. No joint tenderness, effusion, or edema noted. No calf tenderness. Negative Homans sign bilaterally. NEUROLOGICAL: awake, alert oriented x 3. No focal deficits, anxious, tearful. Urinary Catheter: No Vascular Central Line Catheter: No A/P Assessment and Plan (1) Abdominal pain (2) Dehydration (3) Intractable nausea and vomiting (4) Ketonuria (5) Leukocytosis (6) DM (diabetes mellitus) (7) HTN (hypertension) (8) GERD (gastroesophageal reflux disease) (9) COPD (chronic obstructive pulmonary disease) Plan 61-year-old white female presented to the emergency room with complaint of recurrent abdominal pain with intermittent nausea vomiting. Was recently admitted for same symptoms, underwent GI workup without significant findings. She was noted with leukocytosis and eosinophilia. Was discharged on Flagyl and Levaquin. Intractable nausea vomiting, epigastric pain, etiology unclear. Dehydration, ketonuria, acidosis Leukocytosis, etiology unclear. GERD -labs reviewed, acidosis resolving -Clear liquid diet, seems to be tolerating but still with nausea. Will keep her on it. -IV fluids -Patient is allergic to morphine and Dilaudid, continue with Demerol for pain -Continue antiemetics when necessary, Reglan Pepcid 20 mg IV twice a day -started on Levaquin and Flagyl, tolerating well. WBC trending down -MRA SMA of the abdomen normal -HIDA yesterday, no obstruction -no clear etiology for abd. pain and n/v. May need repeat EGD - GES is + for severe delayed even after iv reglan -bethanocol - dw GI Diarrhea -stools for cdiff negative Elevated troponin with epigastric discomfort, rule out acute coronary syndrome.Trop indeterminate, likely elevation sec. to stress -appreciate card input, no procedures are planned at this time -DC ntg, c/o headache -Continue with Lovenox 40 mg subcutaneous daily -continue ASA/BB Hypertension, uncontrolled, likely secondary to anxiety and pain BP elevated overnight continue home medications. Inc. Cozaar to 50 mg po bid. -continueVasotec PRN Anxious, tearful -Add Xanax prn Type 2 diabetes Accu-Cheks before meals and at bedtime with insulin therapy COPD stable, Monitor sats DuoNeb's when necessary for wheezing SCDs for DVT prophylaxis Pepcid for GI prophylaxis No clear etiology for pt's pain will wait for further recs from GI continue with supportive care D/W RN previous notes reviewed labs meds and rad data reviewed dw pt and at bedside extensive time spent in managment of this pt Marisabel Harper MD Sep 09, 2016 15:34
[2016-09-09] MEDS: LEVOFLOXACIN 500 MG PREMIX INJ 100 ML IV SCH (15:41)
--- NOTE | 2016-09-09 15:44 | HHI.PR ---
Subjective Subjective Notes Resting in bed Multiple family members visiting Reports pain is better today but still present Objective Vitals/I&O Vital Signs Date Time Temp Pulse Resp B/P Pulse Ox O2 Delivery O2 Flow Rate FiO2 09/09/16 08:25 98.5 57 18 174/77 98 09/09/16 02:00 Room Air 09/08/16 02:56 Labs Laboratory Tests Test 09/08/16 20:00 Stool C. difficile Toxin (PCR) NEGATIVE Stl C. difficile Toxin PRESUMPTIVE Epiderm 027 NEGATIVE Date/Time Procedure Status Source Growth 09/06/16 09:38 Aerobic Blood Culture - Preliminary Resulted Blood Peripheral NO GROWTH IN 3 DAYS 09/06/16 09:38 Anaerobic Blood Culture - Preliminary Resulted Blood Peripheral NO GROWTH IN 3 DAYS Cardiovascular: Regular Lungs: Clear Abdomen: Other (no RUQ pain with deep palpation; on and off epigastric pain ) Extremities: No edema A/P Assessment and Plan 61 year old female with abdominal pain -Gastric emptying study completed--- shows severely delayed gastric emptying; defer to GI -Diet per GI -OOB and mobilize -Pain control Attending Note - Dr. Russell Abdomen soft and nontender Pain improved Will hold on any surgery for now Short course of reglan/or erythromycin/bethanoThe exam, history, and the medical decision-making described in the above note were completed with the assistance of the mid-level provider. I reviewed and agree with the findings presented. I attest that I had a [id number] encounter with the patient on the same day, and personally performed and documented my assessment and findings in the medical record.col? Sharri Thomas Sep 09, 2016 15:44 Mark Russell MD Sep 10, 2016 12:43
[2016-09-09 16:02] VITALS: BP 189/81; PULSE 64; RESP 18; TEMP 98.8; O2SAT 97
[2016-09-09] MEDS ORDERED: BENZONATATE 100 MG CAP PO PRN (17:30)
[2016-09-09] MEDS: BETHANECHOL CHL 25 MG TAB PO SCH (18:05)
[2016-09-09 20:00] VITALS: BP 177/82; PULSE 62; PULSE 65; RESP 18; TEMP 98.7; O2SAT 99
[2016-09-09] MEDS: MEPERIDINE HCL 50 MG/ML VIAL IV PUSH PRN (20:32)
[2016-09-10] VITALS: BP 174/77; PULSE 57; RESP 18; TEMP 97.7; O2SAT 98
[2016-09-10] MEDS: ENALAPRILAT 1.25 MG/ML VIAL IV PUSH PRN (03:53)
[2016-09-10 04:00] VITALS: BP 178/70; PULSE 58; RESP 16; TEMP 98.4; O2SAT 98
[2016-09-10] MEDS: metroNIDAZOLE 500 MG INJ 100 ML IV SCH (04:05)
[2016-09-10] MEDS: 1/2 NS + KCL 20 MEQ INJ 1,000 ML IV SCH (04:05)
[2016-09-10] MEDS: HYOSCYAMINE 0.125 MG TAB PO SCH ×2 (05:42→11:00)
[2016-09-10] MEDS: INSULIN ASPART SUPPLEMENTAL SCALE SQ SCH ×2 (06:14→11:00)
[2016-09-10 08:36] VITALS: BP 183/79; PULSE 60; RESP 18; TEMP 98.4; O2SAT 99
[2016-09-10 08:41] VITALS: PULSE 76
[2016-09-10] MEDS: ALPRAZolam 0.25 MG TAB PO PRN (08:44)
[2016-09-10] MEDS: BETHANECHOL CHL 25 MG TAB PO SCH ×2 (08:44→12:40)
[2016-09-10] MEDS: FAMOTIDINE 20 MG/2 ML VIAL IV PUSH SCH (08:44)
[2016-09-10] MEDS: FLUTICASONE 100 MCG/VILANTEROL 25 MCG INHALER INH SCH (08:44)
[2016-09-10] MEDS: LOSARTAN 50 MG TAB PO SCH (08:45)
[2016-09-10] MEDS: ASPIRIN 325 MG TAB PO SCH (08:45)
[2016-09-10] MEDS: amLODIPine BESYLATE 5 MG TAB PO SCH (08:45)
[2016-09-10] MEDS: CARVEDILOL 3.125 MG TAB PO SCH (08:45)
--- NOTE | 2016-09-10 11:15 | HHI.GIFU ---
GI Follow-up Note Consult Follow-up Subjective: Patient feeling better today. Less stooling and states that her abdominal pain is better. She has been started on bethanechol and wants to eat and be discharged to home Objective: PHYSICAL EXAMINATION: Vitals signs stable No fever CHEST: Chest is clear to auscultation and percussion. CARDIAC: Regular rate and rhythm with no murmur gallop or rubs. ABDOMEN: Soft, nondistended, mildly tender; no hepatosplenomegaly; bowel sounds are present in all four quadrants. EXTREMITIES: No clubbing, cyanosis, or edema. SKIN: Normal; no rash; no jaundice. HEALTH INFORMATION ASSISTANT: alert and oriented times three. Available Data (labs, X- Rays, Procedues) : gastric emptying scan shows severe gastroparesis ASSESSMENT/PLAN: 1. Epigastric pain-w/u negative. feels better 2. N/V--gastroparesis noted 2. elevated WBC -better 4. GB wall polyp 5. elevated troponin 6. Loose stools-prob antibiotics. better PLAN: 1. continue bethanechol. Advance diet. If she tolerates diet she can be discharged 2. Cont Levsin as needed 3. antibiotics (Flagyl and Lev)--for one week 4. Repeat EGD and/or EUS would be low yield procedures 5. Cont H2 dom 6. followup with Dr. Bland as an outpatient. 7. Dr. Delarosa will see pt 09/11/16 if pt still here It was a pleasure seeing Nicole Cabrera Thank you for this consult. Entered by: Armen Farrar MD Sep 10, 2016 11:15
--- NOTE | 2016-09-10 11:16 | HHI.PR ---
Subjective Remarks Resting in the bed Alert oriented Pretty adamant about going home Afebrile in room Abdominal pain more controlled (Stephanie Lord) Objective Objective Results - Vital Signs Date Time Temp Pulse Resp B/P Pulse Ox O2 Delivery O2 Flow Rate FiO2 09/10/16 08:52 99 Room Air 09/10/16 08:41 76 09/10/16 08:36 98.4 60 18 183/79 99 09/10/16 04:00 98.4 58 16 178/70 98 09/10/16 00:00 Room Air 09/10/16 00:00 97.7 57 18 174/77 98 09/09/16 20:00 Room Air 09/09/16 20:00 98.7 65 18 177/82 99 09/09/16 20:00 62 09/09/16 18:20 97 Room Air 09/09/16 16:02 98.8 64 18 189/81 97 I/O 09/09/16 09/09/16 09/09/16 09/10/16 09/10/16 09/10/16 07:00 15:00 23:00 07:00 15:00 23:00 Intake Total 920 ml 972 ml 769 ml Balance 920 ml 972 ml 769 ml Intake Oral 120 ml 240 ml 0 ml IV Total 800 ml 732 ml 769 ml # Voids 5 3 2 3 # Bowel Movements 5 3 0 0 (Stephanie Lord) Result Diagram: 09/08/16 0610 09/08/16 0610 ROS General: Weakness (improved) GI: Abdominal Pain (often after eating ,but improved), BM (loose stools, gradual improvement) Neuro/MS: Other (anxiety mild) (Stephanie Lord) Physical Exam Physical Exam PHYSICAL EXAMINATION GENERAL: This is a well-developed, well-nourished female who appears to be in no acute distress. She is alert and awake, he states to go home HEAD: Normocephalic , atraumatic OROPHARYNGEAL: Oropharynx clear NECK: Supple. CARDIAC: Regular rhythm, regular rate, S1 and S2 are heard. LUNGS: Clear to auscultation bilaterally ABDOMEN: Round, taut , no organomegaly or masses. Bowel sounds are heard in all four quadrants. Occasional cramping with loose stools, improved EXTREMITIES: no edema. Pulses equal bilateral. NEUROLOGICAL: Patient mood and affect appropriate with mild anxiety related to hospital admission SKIN:Warm and moist, dry (Stephanie Lord) A/P Assessment and Plan (1) Abdominal pain (2) Dehydration (3) Intractable nausea and vomiting (4) Ketonuria (5) Leukocytosis (6) DM (diabetes mellitus) (7) HTN (hypertension) (8) GERD (gastroesophageal reflux disease) (9) COPD (chronic obstructive pulmonary disease) Plan 61-year-old white female presented to the emergency room with complaint of recurrent abdominal pain with intermittent nausea vomiting. Was recently admitted for same symptoms, underwent GI workup without significant findings. She was noted with leukocytosis and eosinophilia. Was discharged on Flagyl and Levaquin. Vital signs reviewed, afebrile trends are normal with mild systolic elevation, 170s. Patient states that she takes different blood pressure medicines at home which manages it better. Labs reviewed, noted significant trending down of her leukocytosis with medical management Intractable nausea vomiting, epigastric pain, delayed empty study, severe Gradual improvement noted today with meds,-bethanocol Leukocytosis, resolved with medical management GERD, by mouth meds now -Clear liquid diet, we'll await GI expert opinion, patient states that it is supposed to be increased to regular food today to check her toleration Diarrhea, gradual improvement -stools for cdiff negative Elevated troponin with epigastric discomfort, rule out acute coronary syndrome.Trop indeterminate, likely elevation sec. to stress -appreciate card input, no procedures are planned at this time, stable no acute chest pain -Continue with Lovenox 40 mg subcutaneous daily -continue ASA/BB Hypertension, uncontrolled, likely secondary to anxiety and pain BP elevated overnight continue home medications. Inc. Cozaar to 50 mg po bid. -continueVasotec PRN Anxiety, medical management with when necessary meds. Type 2 diabetes Accu-Cheks before meals and at bedtime with insulin therapy COPD stable, Monitor sats DuoNeb's when necessary for wheezing SCDs for DVT prophylaxis Pepcid for GI prophylaxis Discussed with nurse Discussed with patient and her , Discussed with Dr. Harper, seen on his behalf Discharge planning, possible today or in a.m. if patient can tolerate food. Home with family when stable (Stephanie Lord) Assessment and Plan Patient seen and examined as above Labs reviewed Discussed with GI in detail. Plan to discharge her home on bethanechol. And for nausea Compazine on a when necessary basis. And heart healthy diet for the time being. Discussed with patient about her blood pressure as per patient Miles helps at home and she will check it and make sure it is okay otherwise she has to call primary care doctor. Also she will take very small frequent meals. [place] Diet for the time being. And she will make a log out of that. Plan of care discussed with VICKI Discussed with patient If patient tolerated lunch we will discharge her home to be followed by primary care doctor and GI in one week. And as per field broomer they will go over with her about her diet in detail in their office. (Marisabel Harper MD) Stephanie Lord Sep 10, 2016 11:16 Marisabel Harper MD Sep 10, 2016 11:51
[2016-09-10] MEDS ORDERED: BETH25 PO (11:58)
[2016-09-10] MEDS ORDERED: AMLO5 PO (11:58)
[2016-09-10] MEDS ORDERED: PROC10TA PO (11:58)
[2016-09-10 12:02] VITALS: BP 180/81; PULSE 58; RESP 18; TEMP 98.5; O2SAT 96
[2016-09-10] MEDS: ENOXAPARIN SODIUM 40 MG/0.4 ML SYRINGE SQ SCH (12:41)
--- NOTE | 2016-09-10 14:00 | HHI.PR ---
Subjective Subjective Notes Ambulating in room Dressed and ready to be DCed Objective Vitals/I&O Vital Signs Date Time Temp Pulse Resp B/P Pulse Ox O2 Delivery O2 Flow Rate FiO2 09/10/16 12:02 98.5 58 18 180/81 96 09/10/16 08:52 Room Air 09/08/16 02:56 Labs Date/Time Procedure Status Source Growth 09/06/16 09:38 Aerobic Blood Culture - Preliminary Resulted Blood Peripheral NO GROWTH IN 4 DAYS 09/06/16 09:38 Anaerobic Blood Culture - Preliminary Resulted Blood Peripheral NO GROWTH IN 4 DAYS Cardiovascular: Regular Lungs: Clear Abdomen: Non-distended, Non-tender Extremities: No edema A/P Assessment and Plan 61 year old female with abdominal pain -Gastric emptying study completed--- shows severely delayed gastric emptying; defer to GI -Tolerated regular diet -No surgical plans -General Surgery clear for Sharri Arita Sep 10, 2016 14:00
[2016-09-10 14:08] VITALS: PULSE 56
--- NOTE | 2016-09-10 14:35 | HHI.DS ---
Discharge Summary Admission Date Sep 06, 2016 at 13:35 Discharge Date: Sep 10, 2016 Admitting Diagnosis leukocytosis, epigastric pain, dehydration (1) Abdominal pain Diagnosis: Principal (2) Dehydration Diagnosis: Principal (3) Intractable nausea and vomiting Diagnosis: Principal (4) Ketonuria Diagnosis: Principal (5) Leukocytosis Diagnosis: Principal (6) DM (diabetes mellitus) Diagnosis: Secondary (7) HTN (hypertension) Diagnosis: Secondary (8) GERD (gastroesophageal reflux disease) Diagnosis: Secondary (9) COPD (chronic obstructive pulmonary disease) Diagnosis: Secondary Procedures gastric emptying Brief History This was a 61-year-old white female with significant past medical history diabetes, arthritis, hypertension, acid reflux, diverticulitis, Lyme disease. Pt. presented with recurrent epigastric pain and intractable nausea and vomiting. Patient was recently admitted from September 02, 2016 to September 04, 2016 for same symptoms. Underwent GI workup, had EGD that show pyloric stenosis, ringed esophagus. Biopsy showed squamous mucosa without significant histologic abnormality. CBC/BMP: 09/08/16 0610 09/08/16 0610 Significant Findings Laboratory Tests Test 09/08/16 06:10 White Blood Count 13.3 TH/MM3 (4.0-11.0) Red Blood Count 3.41 MIL/MM3 (4.00-5.30) Hemoglobin 10.4 GM/DL (11.6-15.3) Hematocrit 32.0 % (35.0-46.0) Eosinophils (%) (Auto) 12.8 % (0.0-4.0) Neutrophils # (Auto) 8.1 TH/MM3 (1.8-7.7) Eosinophils # (Auto) 1.7 TH/MM3 (0-0.4) Chloride Level 109 MEQ/L (98-107) Carbon Dioxide Level 19.7 MEQ/L (21.0-32.0) Calcium Level 8.0 MG/DL (8.5-10.1) Total Protein 5.2 GM/DL (6.4-8.2) Albumin 3.0 GM/DL (3.4-5.0) Amylase Level 24 U/L (25-115) Thyroid Stimulating Hormone 7.200 uIU/ML 3rd Gen (0.358-3.740) PE at Discharge PHYSICAL EXAMINATION GENERAL: This is a well-developed, well-nourished female who appears to be in no acute distress. She is alert and awake, he states to go home HEAD: Normocephalic , atraumatic OROPHARYNGEAL: Oropharynx clear NECK: Supple. CARDIAC: Regular rhythm, regular rate, S1 and S2 are heard. LUNGS: Clear to auscultation bilaterally ABDOMEN: Round, taut , no organomegaly or masses. Bowel sounds are heard in all four quadrants. Occasional cramping with loose stools, improved EXTREMITIES: no edema. Pulses equal bilateral. NEUROLOGICAL: Patient mood and affect appropriate with mild anxiety related to hospital admission SKIN:Warm and moist, dry Hospital Course Initially, Patient was noted to noticed leukocytosis with eosinophilia. Patient was recommended to continue on Flagyl and Levaquin. Patient tolerated diet, there was no more nausea, no vomiting, epigastric pain was relieved. She was recommended to follow-up with GI. Patient was discharged in stable condition. Patient indicates, that she had been eating well, had returned to work yesterday. She took her second dose of Flagyl yesterday around 3 PM and right after that she started to have intractable nausea, vomiting and epigastric pain. No hematemesis. Complaining of severe pain that feels like pressure over the epigastric area, no radiation. No associated shortness of breath, she is diaphoretic. She denies any ETOH use. workup was completed. CBC remarkable again for leukocytosis, WBC 20.2. Eosinophils 1.3, neutrophils 16.2. BMP remarkable for hypokalemia, potassium 3.2. She was noted acid, carbon dioxide 18.5. Anion gap 16. Troponin was elevated 0.22. EKG did not reveal any acute ST segment elevation. Patient denies any prior history of coronary artery disease. Indicates that she follows up regularly with Dr. Cartwright, did see him approximately a week ago and did have an EKG. Had never had a stress test or cardiac catheterization. Endorsed family history coronary artery disease, father had a myocardial infarction in his 70s. Patient is very anxious, her skin is flushed. She had received nitroglycerin half an inch, aspirin. She's been given Demerol as well as Reglan. CT of the abdomen did not reveal any acute findings. Patient has allergies to codeine, Dilaudid and morphine. is at bedside also very anxious. Patient was admitted for further evaluation and treatment. These are the diagnoses that were used to treat the patient during her plan of care and hospital stay (1) Abdominal pain (2) Dehydration (3) Intractable nausea and vomiting (4) Ketonuria (5) Leukocytosis (6) DM (diabetes mellitus) (7) HTN (hypertension) (8) GERD (gastroesophageal reflux disease) (9) COPD (chronic obstructive pulmonary disease) Intractable nausea vomiting, epigastric pain, etiology unclear., Continued workup throughout hospital stay for her medical stabilization Dehydration, ketonuria, acidosis initially, monitored with labs treated with hydration, medical management, GI meds by mouth and IV Leukocytosis, etiology unclear. , Course of antibiotics initiated GERD, received IV PPIs during hospital stay -labs reviewed, acidosis resolving with meds and IV fluids Appreciate GI consult for his expert opinion and course of treatment plan . Initially started on-Clear liquid diet, seems to be tolerating but still with nausea. Maintained on this diet until last 24 hours of hospital stay -IV fluids continued throughout most of patient's hospital stay Pain control was adjusted since-Patient is allergic to morphine and Dilaudid, continue with Demerol for pain -Continue antiemetics when necessary, Reglan was DM given during her course of workup Pepcid 20 mg IV twice a day -started on Levaquin and Flagyl, tolerating well. WBC trending down Diagnostic testing included-MRA SMA of the abdomen normal, -HIDA scan done yesterday, no obstruction -no clear etiology for abd. pain and n/v. May need repeat EGD Diarrhea -stools for cdiff On admission Elevated troponin were seen with epigastric discomfort, rule out acute coronary syndrome.Trop indeterminate, likely elevation sec. to stress -appreciate cardiology consult and input. no procedures are planned at this time -DC ntg, c/o headache -Continue with Lovenox 40 mg subcutaneous daily -continue ASA/BB throughout hospital stay Hypertension, uncontrolled, likely secondary to anxiety and pain BP elevated overnight continue home medications. Inc. Cozaar to 50 mg po bid. -continueVasotec PRN Anxious, tearful related to current medical symptoms and hospital stay -Add Xanax prn Type 2 diabetes Accu-Cheks before meals and at bedtime with insulin therapy. Monitored throughout hospital stay COPD stable, Monitor sats DuoNeb's when necessary for wheezing SCDs for DVT prophylaxis Pepcid for GI prophylaxis Patient received gastric emptying study which showed severe issues with the emptying of her stomach. Medical management with new GI meds was initiated. Patient did respond in the last 24 hours to Urecholine and was able to tolerate much improvement solid food. We discussed options of 4-6 meals a day, with the preceptor grazing rather than large meals. Patient plans to keep a diary so she knows what foods are more tolerable to her. No nausea no vomiting the last 24 hours of discharge. Patient was fairly adamant wanting to go home the last day. Discharge planning discharge instructions were discussed, patient will need follow-up with her PCP and GI in 1-2 weeks. Pt Condition on Discharge: Good Discharge Disposition: Discharge Home Discharge Instructions DIET: Follow Instructions for: Heart Healthy Diet Activities you can perform: Weight Bearing as Jacky Follow up Referrals: Gastroenterology - 1 Week PCP Follow-up - 1 Week New Medications: Prochlorperazine Maleate (Prochlorperazine Maleate) 10 Mg Tab 10 MG PO Q6H PRN NAUSEA OR VOMITING #30 Ref 0 TAB Amlodipine (Norvasc) 5 Mg Tab 5 MG PO DAILY hypertension #30 TAB Bethanechol (Urecholine) 25 Mg Tab 25 MG PO TIDAC gastroparesis #90 TAB Continued Medications: Acarbose (Acarbose) 25 Mg Tab 25 MG PO TID Take with first bite of meal. Blood Sugar Management #90 Ref 0 TAB Albuterol Powder Inh (Proair Respiclick Inh) 90 Mcg/Act Aerp 1 PUFF INH Q4H PRN SHORTNESS OF BREATH #1 Ref [address] (Aspirin 81) 81 Mg Tabdr 81 MG PO DAILY Ref 0 TAB Diclofenac Sodium (Voltaren) 100 Gm Gel..gram. Estradiol Valerate Inj (Delestrogen Valerate Inj) 40 Mg/Ml Inj Fexofenadine-Pseudoephedrine ER 12 HR (Yamilet-D 12 Hour Allergy) 60-120 Mg Olivia 1 TAB PO BID Allergy Management #60 Ref 0 TAB Fluticasone-Vilanterol Inh (Breo Ellipta Inh) 100-25 Mcg/Act Inh 1 PUFF INH DAILY Use daily at the same time. #1 Ref 0 INHALER Hydrocodone-Acetaminophen (Hydrocodone-Acetaminophen) 5-325 mg Tab 1 TAB PO Q6H PRN PAIN Ref 0 TAB Inulin/Sorbitol (Fiber Choice Chewable Tablet) 1.5 Gm Tab.chew Lansoprazole (Prevacid) 30 Mg Capdr 30 MG PO DAILY Ref 0 CAP Mometasone Topical (Mometasone Topical) 0.1 % Lotn 1 APPLIC TOPICAL DAILY #1 Ref 0 BOTTLE Multiple Vitamin (Multi-Day Vitamins) 1 Tab Tab Olmesartan (Benicar) 20 Mg Tab 20 MG PO DAILY Blood Pressure Management #30 Ref 0 TAB Ranitidine (Ranitidine) 150 Mg Tab 150 MG PO DAILY Heartburn Management #30 Ref 0 TAB Discontinued Medications: Levofloxacin (Levaquin) 500 Mg Tablet 500 TAB PO DAILY Infection #7 TAB Metronidazole (Flagyl) 500 Mg Tab 500 MG PO TID Infection #21 Ref 0 TAB Stephanie Lord Sep 10, 2016 14:35
== END 2016-09-10 14:25 | disposition home or self-care (01) | DRG 392 ==
LOC: NEPC 04:55 → NEDA 10:39 → OBSVTOIN 13:35 → HIMW 18:00 → HIMN 18:00 → N04B 09-07 14:45 → N04A 09-07 16:20
PROVIDERS: ADMIT Specialist; ATTEND Specialist
DX: K30 Functional dyspepsia (principal); E87.2 Acidosis; K76.0 Fatty (change of) liver, not elsewhere classified; J44.9 Chronic obstructive pulmonary disease, unspecified; K31.1 Adult hypertrophic pyloric stenosis; I10 Essential (primary) hypertension; M19.90 Unspecified osteoarthritis, unspecified site; J45.909 Unspecified asthma, uncomplicated; K21.9 Gastro-esophageal reflux disease without esophagitis; E87.6 Hypokalemia; E86.0 Dehydration; D72.829 Elevated white blood cell count, unspecified; K57.30 Diverticulosis of large intestine without perforation or abscess without bleeding; K82.4 Cholesterolosis of gallbladder; R11.2 Nausea with vomiting, unspecified; F41.9 Anxiety disorder, unspecified; R82.4 Acetonuria; R19.7 Diarrhea, unspecified; Z79.82 Long term (current) use of aspirin; Z79.84 Long term (current) use of oral hypoglycemic drugs; Z87.891 Personal history of nicotine dependence; Z85.828 Personal history of other malignant neoplasm of skin; Z86.19 Personal history of other infectious and parasitic diseases; Z86.73 Personal history of transient ischemic attack (TIA), and cerebral infarction without residual deficits; Z87.11 Personal history of peptic ulcer disease; Z88.5 Allergy status to narcotic agent
CPT/HCPCS: 71010; 74177; 74183; 78226; 78264; 80048; 80053; 80061; 80076; 81001; 82150; 82948; 83605; 83690; 83735; 84443; 84484; 85025; 85027; 87040; 87493; 87641; 93005; 93306; 96361; 96374; A9537; A9541; A9579; C8900; J0780; J1650; J1885; J1956; J2175; J2405; J2765; J3480; J7030; Q9963; Q9967